=== PATIENT | female | born 1940 | race Caucasian/White ===

== ENCOUNTER → 2024-01-21 10:56 | Outpatient (REF) | payer OTHER, SELFPAY | LOC: RAD 10:56 | PROVIDERS: ATTENDING PHYSICIAN Nurse Practitioner Family | DX: I50.32 Chronic diastolic (congestive) heart failure (principal) | CPT/HCPCS: 71046 ==

== ENCOUNTER 2024-04-27 02:41 | Inpatient (IN) | payer OTHER, SELFPAY ==
[2024-04-26 23:13] VITALS: BP 115/61; BMI 26.4
[2024-04-26 23:14] VITALS: BP 115/61
[2024-04-26 23:41] LABS: % Basophils 0.3 % (0-2); % Eosinophils 0.1 % (0-6); % Immature Granulocytes 0.1 % (0-0.5); % Lymphocytes 5.9 % (20.5-51.1); % Monocytes 10.2 % (1.7-9.3); % Neutrophils 83.4 % (42.2-75.2); Absolute Lymphocytes 0.5 10^3/uL (1.2-3.4); Absolute Monocytes 0.8 10^3/uL (0.1-0.6); Absolute Neutrophils 6.6 10^3/uL (1.4-6.5); Hematocrit 36.2 % (37.0-47.0); Hemoglobin 11.5 g/dL (12.0-16.0); Mean Corp Hgb Conc. 31.8 g/dL (33.0-37.0); Mean Corpuscular Hgb 25.7 pg (27.0-31.0); Mean Platelet Volume 10.1 fL (7.4-10.4); Nucleated Red Blood Cells % 0 %; Platelet Count 120 10^3/uL (130-400); Red Blood Cell Count 4.47 10^6/uL (4.20-5.40); White Blood Cell Count 7.9 10^3/uL (4.8-10.8)
--- NOTE | 2024-04-26 23:52 | ED.GENMED ---
History of Present Illness
General
Chief Complaint: Breathing Problem
Source: patient
Exam Limitations: none
Time Seen by Provider: 04/26/24 23:37
History of Present Illness
History of Present Illness:
This is a 83 year old female that comes in by ambulance with c/o SOB. States that she started with trouble breathing about 6:15pm tonight. States that she felt SOB and dizzy. Family states that she just saw her geophysics scientist this week. Patient use to
take Lasix BID but a few months ago this was decreased to only once daily. Denies any fever, chills, chest pain, abd pain, nausea, vomiting, diarrhea, headache, urinary burning.
Past History
Past History
ED Past Medical History: Cancer (Tonsils and throat), COPD, HTN, Hypercholesterolemia, NIDDM and Other (glaucoma, )
ED Past Surgical History: Other (cataracts)
Social History
Tobacco: Former smoker
Alcohol: None
Personal:
Living: alone
Review of Systems
Review of Systems
All Other Systems: ROS reviewed and negative except as documented in HPI and ROS
Constitutional: Reports no symptoms; Denies fever or chills
EENT: Reports no symptoms
Respiratory: Reports trouble breathing
Cardiac: Denies chest pain
ABD/GI: Reports no symptoms; Denies abdominal pain, nausea, vomiting or diarrhea
: Reports no symptoms; Denies dysuria, frequency or urgency
Musculoskeletal: Reports no symptoms
Skin: Reports no symptoms
Neurological: Reports dizzy; Denies headache
Psychiatric: Reports no symptoms
Phy Exam
General Physical Exam
General Presentation: mild distress
General age: appears stated age
General Skin: warm and dry
General Habitus: elderly
General Mental: alert
General Hydration: dry mucous membranes
ENT Exam
ENT Exam: TM's normal, pharynx normal and neck supple
Eye Exam
Eye Exam: EOMI
Cardiovascular Exam
Cardiovascular Exam: regular rate/rhythm and normal peripheral pulses
Pulmonary Exam
Pulmonary Exam: chest non tender, no rhonchi, no wheezing, no cough and other (Rales at base bilaterally)
Gastrointestinal Exam
Gastrointestinal Exam: normal bowel sounds, non tender, soft, no organomegaly, no pulsatile mass and non distended
Musculoskeletal Exam
Musculoskeletal Exam: full ROM and edema (Right >Left. Ankles and lower legs +1 pitting)
Skin Exam
Skin Exam: normal color, warm/dry and other (Petechia noted on the lower legs)
Psychiatric Exam
Psychiatric Exam: normal mood/affect
Scores
Heart Failure Risk
Heart Failure Risk Score: Yes
History of Stroke or TIA: No
History of intubation for respiratory distress: No
Heart rate on ED arrival >/= 110: No
SaO2 <90% on arrival on room air: No
HR >/=110 during 3min walk test (or too ill to perform test): Yes
ECG has acute ischemic changes: No
Urea >/=12mmol/L (BUN 33.6mg/dL): No
Serum CO2>/=35mmol/L: No
Troponin I or T elevated to NM Level (0.4mg/dL): No
NT-proBNP >/=5,000ng/L (5,000pg/ml): No
HF Risk Score: 2
Admission Status: MEDIUM RISK 9.2% Consider observation or discharge to home with homecare & f/u visit to PCP/Fire Equipment Operator, or SNF for treatment
Course
Orders/Labs/Results
Orders:
Orders
04/26/24 23:35
Complete Blood Count/With Diff Urgent
Comprehensive Metabolic Panel Urgent
04/26/24 23:52
NT-proBNP Urgent
Troponin I Urgent
04/27/24 00:00
CR Chest - 2 Views Urgent
Reason For Exam: SOB
04/27/24 00:05
Electrocardiogram (*1) Urgent
Reason for Study: Shortness of Breath
EKG- Treatment ONCE
04/27/24 00:16
Prothrombin Time Urgent
04/27/24 00:31
Furosemide [Lasix] 40 mg IV NOW STA
04/27/24 00:33
Furosemide [Lasix] 40 mg .ROUTE .STK-MED ONE
Abnormal Lab Results
04/26/24
23:35
Hgb 11.5 L g/dL
(12.0-16.0)
Hct 36.2 L %
(37.0-47.0)
MCH 25.7 L pg
(27.0-31.0)
MCHC 31.8 L g/dL
(33.0-37.0)
RDW 15.0 H %
(11.5-14.5)
Plt Count 120 L 10^3/uL
(130-400)
Absolute Neuts (auto) 6.6 H 10^3/uL
(1.4-6.5)
Absolute Lymphs (auto) 0.5 L 10^3/uL
(1.2-3.4)
Absolute Monos (auto) 0.8 H 10^3/uL
(0.1-0.6)
Neutrophils % 83.4 H %
(42.2-75.2)
Lymphocytes % 5.9 L %
(20.5-51.1)
Monocytes % 10.2 H %
(1.7-9.3)
Chloride 95 L mmol/L
(98-107)
Carbon Dioxide 33 H mmol/L
(22-30)
Creatinine 0.5 L mg/dL
(0.6-1.0)
Glucose 169 H mg/dl
(70-99)
AST 58 H U/L
(14-36)
Alkaline Phosphatase 180 H U/L
(38-126)
04/26/24 23:35
04/26/24 23:35
H/H slightly low. Plt low. Anemia, chloride low, carbon dioxide elevation. Glucose nonfasting. AST elevation. Alk phos elevation. Troponin 0.012, Pro-BNP 874, PT 13.2 with INR 1.02
Vital Signs
Initial and Last Documented VS:
Initial Vital Signs
Temp Pulse Resp BP Pulse Ox
98.1 F 104 18 115/61 97
04/26/24 23:13 04/26/24 23:13 04/26/24 23:13 04/26/24 23:13 04/26/24 23:13
Last Documented Vital Signs
Temp Pulse Resp BP Pulse Ox
98.1 F 78 29 114/50 97
04/26/24 23:13 04/27/24 00:34 04/26/24 23:30 04/27/24 00:34 04/27/24 00:00
MDM/Problems Addressed
Differential Diagnosis Includes:
CHF, COPD exacerbation
MDM/Problems Addressed:
This is a 83 year old female that comes in by ambulance with c/o SOB. states that this started tonight about 6:15pm. States that she felt better after the Duo neb that was given by EMS.
Will check labs, chest x-ray,
back into see patient and family. Explained that her Chest x-ray shows a left pleural effusion with increased vascular congestion. Will give IV Lasix and admit. Hospitalist notified.
Chronic conditions affecting care: COPD
Acute Exacerbation and/or Progression of Chronic Illness: COPD
*Radiology
Radiology exam reviewed: preliminary read by ED provider (Chest- left pleural effusion with increased vascular congestion. )
*Pulse Oximetry
Patient hypoxic: no
*Plush Finisher Interpretation
Rate: tachycardiac
Heart Rate: 106
Rhythm: sinus
*Critical Care Note
Total Time (30-74mins, 75-104mins- exclusive of procedures): Not Applicable
ED Attending Note
-
Portions of this chart may have been created with voice recognition software.� Occasional wrong word or��sound alike� substitutions may have occurred due to the inherent limitations of voice recognition software.
Discharge Plan
Departure
Patient Disposition: Admit
Date of Disposition: 04/27/24
Time of Disposition: 00:38
Admit to: Telemetry
Presentation/result/management discussed w/ accepting MD/DO: Hospitalist
Patient with high blood pressure during this ER visit?: No
Condition: Good
Covid-19: Not Applicable
Discharge Problem:
SOB (shortness of breath), Pleural effusion on left
Prescriptions:
No Action
latanoprost 1 DROP drops
1 drp BOTH EYES HS
ascorbic acid (vitamin C) [Vitamin C] 1,000 MG tablet
1,000 mg PO DAILY
metformin 850 MG tablet
850 mg PO DAILY
cyanocobalamin (vitamin B-12) 1,000 MCG tablet
1,000 mcg PO DAILY
aspirin 81 MG tablet,delayed release (DR/EC)
81 mg PO DAILY
verapamil 120 MG tablet
120 mg PO BID
lorazepam 0.5 MG tablet
0.5 mg PO BIDPRN PRN (Reason: anxiety)
Patient Comments:
02/18/2021: last filled 08/10/20, 30 tabs for 15 days from [facility]
albuterol sulfate 1 PUFF HFA aerosol inhaler
2 puff inhalation R Q4HPRN PRN (Reason: sob)
brimonidine [Alphagan P] 1 DROP drops
1 drp BOTH EYES DAILY
tiotropium bromide [Spiriva with HandiHaler] 18 MCG capsule, w/inhalation device
18 mcg inhalation R DAILY
cholecalciferol (vitamin D3) 2,000 UNITS tablet
2,000 units PO DAILY
guaifenesin [Mucus Relief ER] 600 MG tablet extended release 12hr
1,200 mg PO DAILY
ropinirole 0.25 MG tablet
0.25 mg PO TID Qty: 90 0RF
pantoprazole 40 MG tablet,delayed release (DR/EC)
40 mg PO DAILY Qty: 30 0RF
furosemide [Lasix] 20 MG tablet
20 mg PO DAILY Qty: 30 0RF
Referrals:
Lindy Olivas MD [Family Provider] -
Interventions
Interventions:
*Risk Screen - Suicide Last Done: 04/26/24 23:13
*General Assessment Last Done: 04/26/24 23:13
*Neglect/Abuse Screening Last Done: 04/26/24 23:13
ED- Fall Risk Assessment Last Done: 04/26/24 23:26
*ED COVID-19 Vaccine History Last Done: 04/26/24 23:13
ED- Cardiac Assessment Last Done: 04/26/24 23:26
ED- Pulmonary Assessment Last Done: 04/26/24 23:26
Discharge Date and Time
Print Language: HEBREW
[2024-04-27] VITALS (12 sets, daily range): BP systolic 101–148; BP diastolic 47–85; PULSE 105; O2SAT 95; BMI 25.3
[2024-04-27 00:03] LABS: ALT (SGPT) 32 U/L (0-35); AST (SGOT) 58 U/L (14-36); Albumin 3.8 g/dl (3.5-5.0); Alkaline Phosphatase 180 U/L (38-126); Blood Urea Nitrogen 9 mg/dl (7-17); Calcium 8.8 mg/dl (8.4-10.2); Carbon Dioxide 33 mmol/L (22-30); Chloride 95 mmol/L (98-107); Estimated Creatinine Clearance 74 ml/min; Glucose 169 mg/dl (70-99); Potassium 3.5 mmol/L (3.5-5.1); Sodium 136 mmol/L (135-145); Total Bilirubin 1.1 mg/dl (0.2-1.3); Total Protein 6.7 g/dl (6.3-8.2); eGFR > 60.00
[2024-04-27 00:21] LABS: NT-proBNP 874 pg/ml; Troponin I 0.012 ng/ml
[2024-04-27] MEDS: LASIX 40 MG IV (00:34)
[2024-04-27 00:48] LABS: INR 1.02; PT 13.2 Sec (11.4-14.6)
--- NOTE | 2024-04-27 01:09 | HPS.HSE ---
Family Physician
-
Family Physician: Lindy Olivas
Chief Complaint
-
SoB
History of Present Illness
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
Evaluation of SoB
- presentation is acute on chronic per family
- HX COPD and recently received Home O2 2 L to wear during walking hrs and PRN
- Recently reduced Lasix to once daily in place of BID by PCP due to dehydration
- Denied CP Denied cough with phlegm
- Denied presyncope or syncope
Reviewed serial ECHO
- Noted interval drop in LVEF to 50-55 from 60-65
- Noted Mod with increased gradient to 57/34 mmHg from 43/25 mmHg.
- Relatively similar STEVO 1- 1.2 sq cm
- Stable Mild/mod MS
Medical History
Past Medical History
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
Past Surgical History: Reports None
Social History
Tobacco: Former Smoker
Alcohol: Occasional
Drug: None
Family History
Family History: Not pertinent
Allergies / Home Medications
Allergies reflects when Allergies were last updated in [employer].
Home Medications with original date entered in [employer]
Allergy/Medication List:
Allergies
Allergy/AdvReac Type Severity Reaction Status Date / Time
latex Allergy Unknown Unknown Verified 04/27/24 00:28
lisinopril Allergy Unknown Verified 04/27/24 00:31
simvastatin Allergy Unknown Verified 04/27/24 00:31
codeine AdvReac Mild Pharmacy Verified 04/27/24 00:28
to Review
Home Medications
albuterol sulfate 90 mcg/actuation aerosol inhaler 2 puff inhalation R Q4HPRN PRN sob 02/18/21
brimonidine 0.15 % eye drops (Alphagan P) 1 drp BOTH EYES DAILY Lung/breathing issues 02/18/21
guaifenesin 600 mg tablet, extended release 12 hr (Mucus Relief ER) 1,200 mg PO DAILY cough 02/18/21
latanoprost 0.005 % eye drops 1 drp BOTH EYES HS Eye condition 02/18/21
lorazepam 0.5 mg tablet 0.5 mg PO BIDPRN PRN anxiety 02/18/21
metformin 850 mg tablet 850 mg PO DAILY Diabetes 02/18/21
tiotropium bromide 18 mcg capsule with inhalation device (Spiriva with HandiHaler) 18 mcg inhalation R DAILY Lung/breathing issues 02/18/21
verapamil 120 mg tablet 120 mg PO BID Blood pressure 02/18/21
furosemide 20 mg tablet (Lasix) 20 mg PO DAILY #30 tabs 02/22/21
ropinirole 0.25 mg tablet 0.25 mg PO TID #90 tabs 02/22/21
azelastine 137 mcg (0.1 %) nasal spray 1 spray intranasal BID 04/27/24
ferrous sulfate 27 mg iron tablet 27 mg PO DAILY 04/27/24
vitamins A,C,U-nqde-qecffg 4,296 mcg-226 mg-90 mg capsule (PreserVision AREDS) 1 cap PO BID 04/27/24
Review of Systems
-
Constitutional: Reports No Symptoms
EENT: Reports No Symptoms
Respiratory: Reports Trouble Breathing
Cardiac: Reports See HPI; Denies Chest Pain, Diaphoresis, Palpitations or Syncope
Abdomen/GI: Reports No Symptoms
: Reports No Symptoms
Musculoskeletal: Reports No Symptoms
Skin: Reports No Symptoms
Neurological: Reports No Symptoms
Endocrine: Reports No Symptoms
Hematologic/Lymphatic: Reports No Symptoms
Psych: Reports No Symptoms
Physical Exam
Vital Signs
Vital Signs
Temp Pulse Resp BP Pulse Ox
98.1 F 92 35 126/66 97
04/26/24 23:13 04/27/24 01:00 04/27/24 01:00 04/27/24 01:00 04/27/24 01:00
Physical Exam
General: Respiratory Distress (mild )
HEENT: NormoCephalic, Moist mucous membranes (dry) and Oxygen; No Anicteric
Respiratory: Rales (at bases ); No Wheezes
Cardiac: S1/S2 and Regular Rhythm
Breast: Deferred by me
GI: Soft, Non Tender, Non Distended and Normal Bowel Sounds
Rectal: Deferred by Provider
Genito-urinary: Deferred by me
Musculoskeletal: Other (Right >Left. Ankles and lower legs +1 pitting)
Skin: Warm and Dry
Neuro: AO x 3
Psych: Calm
Laboratory Results
-
04/26/24 23:35
04/26/24 23:35
Laboratory Results
PT 13.2 Sec (11.4-14.6) 04/27/24 00:16
INR 1.02 04/27/24 00:16
Total Bilirubin 1.1 mg/dl (0.2-1.3) 04/26/24 23:35
AST 58 U/L (14-36) H 04/26/24 23:35
ALT 32 U/L (0-35) 04/26/24 23:35
Alkaline Phosphatase 180 U/L (38-126) H 04/26/24 23:35
Troponin I 0.012 ng/ml 04/26/24 23:52
Data Reviewed
-
Medical Tests (Nuc Med, Echo, EKG etc): Report Reviewed by me
Lab Data: Labs Reviewed by me
Old Records: Reviewed
Impression/Plan
-
Reviewed VS: afebrile ST 100 --> 78 BP 115/60 POx 97 on 2 L NC O2
Data
WCC 7.9 Hgb 11.5
Cl 95 CO2 33 Cr 0.5
BG 169
AST 158
ALT 32
AKP 180
NEG TPNI
pro BNP 875
My view on CXR: left pleural mild/moderate effusion with increased vascular congestion.
08/09/23 ECHO
LVEF 50-55
Moderate aortic stenosis. Peak/mean gradients across the aortic valve of 57/34
The aortic valve area is 1.1 sq cm Trace aortic regurgitation.
Mild mitral stenosis with mean gradient across the mitral valve 6 mmHg.
08/28/22 ECHO
LVEF 60-65
Moderate aortic stenosis. Peak/mean gradients across the aortic valve are 43/25 mmHg.
The aortic valve area 1.0cm2.
Mild to moderate mitral stenosis. Mean gradient across the mitral valve is 6 mmHg. Trace mitral regurgitation.
ASSESSMENT & PLAN
Pending Rx reconciliation
Worsening Dyspnea with exertion s/p Lasix 40 x 1 at ER
Small Lt sided pleural effusion
DDX : Worsening symptomatic plus or minus low output HF vs. less likely porimary Pul origin
Reviewed serial ECHO:
- Noted interval drop in LVEF to 50-55 from 60-65
- Noted Mod with increased gradient to 57/34 mmHg from 43/25 mmHg.
- Relatively similar STEVO 1- 1.2 sq cm
- Stable Mild/mod MS
- DCA card consult; await further eval for Diuresis
HX COPD and recently received Home O2 2 L to wear during walking hrs and PRN
No wheeze on my exam
- cont 2 L NC O2
- cont all OP Meds
Stable and improved chronic anemia: asymptomatic
- Observe Hgb
Relative hypotension
Essential hypertension,
- on verapamil add hold parameters for SBP < 115
T2DM
- Held Metformin for now in case cr tend up with IV alsix
- add ISS low
Sjogren's syndrome: Stable
Psoriasis
- recommended OP Rheum FU
Glaucoma:
- Continue Alphagan and Xalatan drops
Hx squamous cell right tonsil, s/p radiation
DVT Px: LMWH
Code: Full
IP TLM
--- NOTE | 2024-04-27 02:45 | PTCARENOTE ---
Pt arrived from ED via stretcher and ambulated w/ rolling walker. Pt is AAOx3, sating 98% on 3L, VSS, w/o complaints of pain. Pt is resting comfortably w/ call carrizales within reach.
[2024-04-27 06:10] LABS: Blood Urea Nitrogen 9 mg/dl (7-17); Carbon Dioxide 36 mmol/L (22-30); Chloride 93 mmol/L (98-107); Estimated Creatinine Clearance 74 ml/min; Glucose 138 mg/dl (70-99); HDL Cholesterol 70 mg/dl; LDL Cholesterol, Calculated 126 mg/dl; Magnesium 1.3 mg/dl (1.6-2.3); Potassium 3.6 mmol/L (3.5-5.1); Sodium 138 mmol/L (135-145); Total Cholesterol 212 mg/dl (50-199); Triglyceride 83 mg/dl (10-149); Very Low Density Lipoprotein 16 mg/dl (0-30); eGFR > 60.00
[2024-04-27] MEDS: MAGNESIUM SULFATE 50 IV (06:35)
[2024-04-27 07:09] LABS: Free T4 0.86 ng/dl (0.78-2.19)
[2024-04-27] MEDS: SPIRIVA RESPIMAT 2.5 MCG 2 PUFF INH (07:21)
[2024-04-27] MEDS: ProAIR HFA INHALER 2 PUFF INH (07:24)
[2024-04-27 07:42] LABS: Glucose - Point of Care 135 mg/dl (70-99)
[2024-04-27] MEDS: LASIX 20 MG PO (08:23)
[2024-04-27] MEDS: CALAN 120 MG PO (08:23)
[2024-04-27] MEDS: MUCINEX 1200 MG PO (08:23)
[2024-04-27] MEDS: ALPHAGAN P 0.15% EYE DROPS 1 DROP BOTH EYES (08:23)
[2024-04-27] MEDS: FEOSOL 325 MG PO (08:23)
[2024-04-27] MEDS: REQUIP 0.25 MG PO ×3 (08:24→21:00)
--- NOTE | 2024-04-27 09:57 | CON.CAR ---
Consultation
Consultation Request
Date/Time Consultation Requested: 04/27/24
Date/Time Consultation Performed: 04/27/24
Requesting Provider: Dr. Gross
Performing Provider: Dr. Rico
Reason for Consultation: Worsening dyspnea on exertion
Medical History
-
Chief Complaint: Worsening shortness of breath
History of Present Illness:
Zoya is a pleasant 83-year-old female who follows routinely with my colleague Dr. Graham recently seen April 22. She has a past medical history of COPD, hypertension, diabetes, sjogrens syndrome, psoriasis, history of squamous cell right tonsil
cancer status post radiation with mild mitral stenosis with a mean transit mitral gradient of 6 mmHg and moderate aortic stenosis with peak/mean transaortic gradients 57/34 mmHg with low normal LV ejection fraction estimated 50-55% based on
echocardiogram in August 2023. She has had progressive shortness of breath which has required increased doses of Lasix. She is also recently been seen by pulmonary and was recently put on home O2 within the last week. When last seen she was
taking Lasix 20 mg once daily and her weight was 177 pounds. At the time of her office visit no change was made to her Lasix but she was requested to have a repeat echocardiogram to reassess aortic valve disease. She presents to [facility] with acute worsening of shortness of breath of the last several days. She denies URI signs or symptoms or fevers. She denies cough.
PMH:
- COPD
- Hypertension
-Mild mitral stenosis, moderate aortic stenosis based on echocardiogram August 2023
- Type 2 diabetes
- Psoriasis
- Sjogrens syndrome
- Glaucoma
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
-COPD with hypoxia requiring 2 L home O2 followed by Dr. Metz
- Prior tobacco use, quit greater than 20 years ago
Past Medical History
Past Medical History: Other (See HPI)
Past Surgical History: Other (See HPI)
Social History
Tobacco: Former Smoker
Alcohol: None
Drug: None
Personal: Single
Living: Alone
Employment: Retired
Family History
Family History: Reviewed & Not Pertinent
Allergies / Home Medications
Allergy/AdvReac Type Severity Reaction Status Date / Time
latex Allergy Unknown Unknown Verified 04/27/24 00:28
lisinopril Allergy Unknown Verified 04/27/24 00:31
simvastatin Allergy Unknown Verified 04/27/24 00:31
codeine AdvReac Mild Pharmacy Verified 04/27/24 00:28
to Review
�Medication �Instructions �Recorded �Confirmed �Type
albuterol sulfate 90 mcg/actuation 2 puff inhalation R Q4HPRN PRN sob 02/18/21 04/27/24 History
aerosol inhaler
brimonidine 0.15 % eye drops 1 drp BOTH EYES DAILY 02/18/21 04/27/24 History
(Alphagan P) Lung/breathing issues
guaifenesin 600 mg tablet, 1,200 mg PO DAILY cough 02/18/21 04/27/24 History
extended release 12 hr (Mucus
Relief ER)
latanoprost 0.005 % eye drops 1 drp BOTH EYES HS Eye condition 02/18/21 04/27/24 History
lorazepam 0.5 mg tablet 0.5 mg PO BIDPRN PRN anxiety 02/18/21 04/27/24 History
metformin 850 mg tablet 850 mg PO DAILY Diabetes 02/18/21 04/27/24 History
tiotropium bromide 18 mcg capsule 18 mcg inhalation R DAILY 02/18/21 04/27/24 History
with inhalation device (Spiriva Lung/breathing issues
with HandiHaler)
verapamil 120 mg tablet 120 mg PO BID Blood pressure 02/18/21 04/27/24 History
furosemide 20 mg tablet (Lasix) 20 mg PO DAILY #30 tabs 02/22/21 04/27/24 Rx
ropinirole 0.25 mg tablet 0.25 mg PO TID #90 tabs 02/22/21 04/27/24 Rx
azelastine 137 mcg (0.1 %) nasal 1 spray intranasal BID 04/27/24 04/27/24 History
spray
ferrous sulfate 27 mg iron tablet 27 mg PO DAILY 04/27/24 04/27/24 History
vitamins A,C,H-bznn-zhluud 4,296 1 cap PO BID 04/27/24 04/27/24 History
mcg-226 mg-90 mg capsule
(PreserVision AREDS)
Review of Systems
-
History Source: Patient
All other systems: Negative unless noted
Constitutional: Weight Gain and Fatigue
EENT: No Symptoms
Respiratory: Cough and Trouble Breathing
Cardiac: No Symptoms
Abdomen/GI: No Symptoms
: No Symptoms
Musculoskeletal: Joint Pain and Muscle Pain
Neurological: Weakness
Endocrine: No Symptoms
Hematologic/Lymphatic: No Symptoms
Physical Exam
Vital Signs
Temp Pulse Resp BP Pulse Ox
98.3 F 94 24 130/52 93
04/27/24 07:20 04/27/24 07:20 04/27/24 07:20 04/27/24 07:20 04/27/24 07:20
Lab Results
04/26/24 23:35
04/27/24 05:30
Troponin I 0.012 ng/ml 04/26/24 23:52
Mto-R-Ncchsfwvsme Pept 874 pg/ml 04/26/24 23:52
Physical Exam
General: Well Developed, Well Nourished, No Apparent Distress, Comfortable and Other (2 L nasal cannula)
HEENT: Normocephalic, Anicteric and Moist Mucous Membranes
Respiratory: Other (Bronchovesicular breath sounds with coarse rhonchi. No wheezes. Fine crackles at the base)
Cardiac: S1/S2, Regular Rhythm and Murmur (2/6 SM)
GI: Soft, Non Tender, Non Distended and Normal Bowel Sounds
Musculoskeletal: Edema
Skin: Negative Rash
Neuro: AO x 3 and Nonfocal/Grossly Intact
Psych: Calm
Impression / Plan
-
[employer] Rolls: Dr. Graham
Impression:
Acute worsening of chronic shortness of breath, COPD exacerbation with mild heart failure with preserved ejection fraction decompensation
COPD with chronic hypoxia recently placed on 2 L nasal cannula home O2
Mild mitral stenosis with moderate aortic stenosis from echocardiogram in August 2023 with plans for repeat 2D echocardiogram as an outpatient
Hypertension
Dyslipidemia
Type 2 diabetes mellitus
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
Microcytic anemia
History of Sjogren's
Plan:
Chronic heart failure with preserved ejection fraction
-proBNP 874 and weights stable when compared to recent outpatient cardiac visits
-Chest x-ray with small left pleural effusion and mild pulmonary vascular congestion
-Twelve-lead EKG sinus rhythm with PVCs/PACs and nonspecific ST-T wave abnormality
-Received Lasix 40 mg IV in the ED yesterday
-I think it is reasonable to do trial of gentle IV diuresis.
-Replete magnesium, 1.3 today
-Lower extremity Doppler negative for DVT
-History of VLADIMIR inhibitor cough
-Repeat 2D echocardiogram on Sunday
COPD with chronic hypoxia only put on home O2
-Pulmonary consulted
Valvular heart disease�repeat echocardiogram on Sunday to reassess aortic and mitral stenosis
Microcytic anemia with hemoglobin and MCV improved, currently 11.5
Sjogren's syndrome and psoriasis�noted
Will follow with you
Data Reviewed
-
EKG: Report Reviewed by me
Radiology: Report Reviewed by me
Labs: Labs Reviewed by me
Old Records: Reviewed
[2024-04-27 11:27] LABS: Glucose - Point of Care 194 mg/dl (70-99)
--- NOTE | 2024-04-27 11:47 | CM ---
CM following re: d/c planning.
CM met with pt at bedside to complete IA.
Pt reports she resides in an in law suite attached to her son's and DIL's home.
She states she is independent with mobility and ADLs.
Pt is on o2, states she is on home o2 as of Sunday.
She reports she is on 2 L, at night and PRN during the day.
Pt states she drives, at times, but family take her to appts.
She does not have VN currently, but states she did PT recently.
Per therapy, recs for VN vs no needs. CM discussed this with pt.
She declines.
C/s acknowledged for AD.
CM brought pt AD/POA paperwork. She verbalized appreciation.
PCP is Dr. Olivas and pharmacy [facility] in [place].
CM will continue to follow.
Goal: home, no needs.
--- NOTE | 2024-04-27 13:34 | W.PN.HOSP.TC ---
Today's Communication/Plan
-
SOB suspected contributed by aortic stenosis together in the setting of COPD
Appreciate cardiology guidance on further Lasix
Appreciate pulmonary given patient's ESQUIVEL in setting of COPD
Assessment / Plan
Assessment / Plan
Physical Exam
General: Respiratory Distress (mild )
HEENT: Normocephalic
Respiratory: Rales (at bases)
Cardiac: S1/S2 and Regular Rhythm
GI: Soft, Non Tender, Non Distended and Normal Bowel Sounds
Musculoskeletal: Other (Right >Left. Ankles and lower legs +1 pitting)
Skin: Warm and Dry
Neuro: AO x 3
Psych: Calm

Worsening Dyspnea with exertion s/p Lasix 40 x 1 at ER
Chronic HFpEF?
History of Interstitial Lung Disease?
Small Lt sided pleural effusion
Moderate Aortic Stenosis
- Patient received Lasix in the ER without much improvement in symptoms
- repeat ECHO ordered
- Daily weights, I's and O's
- DCA card consulted, recommendations appreciated, appreciate guidance on further Lasix given patient's aortic stenosis
COPD, recently started on 2 L home oxygen
No wheeze on my exam
- Consulted pulmonary given patient's worsening SOB (patient sees Dr. Metz outpatient)
Normocytic Anemia
- Monitor CBC
Relative hypotension
Essential hypertension
- Continue Verapamil with hold parameters for SBP < 115
T2DM
- Held Metformin for now in case Cr tend up with any IV alsix
- Continue ISS low and accuchecks
Sjogren's syndrome: Stable
Psoriasis
- recommended OP Rheum FU
Glaucoma:
- Continue Alphagan and Xalatan drops
Hx squamous cell right tonsil, s/p radiation
Hyperlipidemia
Major Depressive Disorder
History of Pulmonary Hypertension
History of CKD Stage 2
Restless Leg Syndrome?
DVT PPx: LMWH
Code: Full
Anticipated Discharge: > 48 hours
Subjective/Interval History
-
Date of Service: April 27, 2024
Patient was seen and examined. She reported still feeling short of breath, denied any chest pain.
Objective Data
-
Labs:
Laboratory Results
04/27/24
05:30
Sodium 138
Potassium 3.6
Chloride 93 L
Carbon Dioxide 36 H
BUN 9
Creatinine 0.5 L
Glucose 138 H
Calcium 9.0
Vital Signs:
Vital Signs
Temp Pulse Resp BP Pulse Ox
98.3 F 75 24 118/47 93
04/27/24 11:00 04/27/24 11:00 04/27/24 11:00 04/27/24 11:00 04/27/24 11:00
I&O
04/26/24 04/27/24 04/28/24
06:59 06:59 06:59
Output Total 325 / 325
Balance -325 / -325
--- NOTE | 2024-04-27 13:50 | CON.PUL ---
Consultation
Consultation Request
Date/Time Consultation Requested: 04-27-24
Date/Time Consultation Performed: 04-27-24
Requesting Provider: Hospitalist Tom
Performing Provider: Dr Del Cid
Reason for Consultation: dyspnea
Medical History
-
Chief Complaint: dyspnea
History of Present Illness:
Mrs Zoya Moise is an 83/W adm late 04-26 with acute on chronic mild ESQUIVEL.
Brought by EMS, reported acute dyspnea and dizziness at home.
On new onset O2 at 2L since last few d, remote h/o smoking, COPD on BDs (not on chronic CSs). Denies fever, chills, NS, CP, abd pain/n/v/d.
Pulm consulted for L pleural effusion and dyspnea
In no resp distress at time of visit. Remote h/o smoking, quit 30 y ago
Past Medical History
Past Medical History: Other (see A&P for PMH/PSH)
Social History
Tobacco: Former Smoker
Alcohol: Occasional
Drug: None
Personal:
Living: With Family (lives in first floor of house alone (son and DIL live upstairs))
Employment: Retired
Family History
Family History: Reviewed & Not Pertinent
Allergies / Home Medications
Allergies
Allergy/AdvReac Type Severity Reaction Status Date / Time
latex Allergy Unknown Unknown Verified 04/27/24 00:28
lisinopril Allergy Unknown Verified 04/27/24 00:31
simvastatin Allergy Unknown Verified 04/27/24 00:31
codeine AdvReac Mild Pharmacy Verified 04/27/24 00:28
to Review
Home Medications
�Medication �Instructions �Recorded �Confirmed �Last Taken �Type
albuterol sulfate 90 mcg/actuation 2 puff inhalation R Q4HPRN PRN sob 02/18/21 04/27/24 02/18/21 History
aerosol inhaler
brimonidine 0.15 % eye drops 1 drp BOTH EYES DAILY 02/18/21 04/27/24 02/17/21 08:00 History
(Alphagan P) Lung/breathing issues
guaifenesin 600 mg tablet, 1,200 mg PO DAILY cough 02/18/21 04/27/24 02/17/21 18:00 History
extended release 12 hr (Mucus
Relief ER)
latanoprost 0.005 % eye drops 1 drp BOTH EYES HS Eye condition 02/18/21 04/27/24 02/17/21 18:00 History
lorazepam 0.5 mg tablet 0.5 mg PO BIDPRN PRN anxiety 02/18/21 04/27/24 Unknown History
metformin 850 mg tablet 850 mg PO DAILY Diabetes 02/18/21 04/27/24 02/18/21 08:00 History
tiotropium bromide 18 mcg capsule 18 mcg inhalation R DAILY 02/18/21 04/27/24 02/18/21 07:00 History
with inhalation device (Spiriva Lung/breathing issues
with HandiHaler)
verapamil 120 mg tablet 120 mg PO BID Blood pressure 02/18/21 04/27/24 02/17/21 18:00 History
furosemide 20 mg tablet (Lasix) 20 mg PO DAILY #30 tabs 02/22/21 04/27/24 Unknown Rx
ropinirole 0.25 mg tablet 0.25 mg PO TID #90 tabs 02/22/21 04/27/24 Unknown Rx
azelastine 137 mcg (0.1 %) nasal 1 spray intranasal BID 04/27/24 04/27/24 Unknown History
spray
ferrous sulfate 27 mg iron tablet 27 mg PO DAILY 04/27/24 04/27/24 Unknown History
vitamins A,C,S-jqol-npqydw 4,296 1 cap PO BID 04/27/24 04/27/24 Unknown History
mcg-226 mg-90 mg capsule
(PreserVision AREDS)
Review of Systems
-
History Source: Patient
All other systems: Negative unless noted
Constitutional: Fatigue
Respiratory: Trouble Breathing
Neuro: Weakness
Vitals / Labs / Diagnostic Testing
Vital Signs
Temp Pulse Resp BP Pulse Ox
98.3 F 75 24 118/47 93
04/27/24 11:00 04/27/24 11:00 04/27/24 11:00 04/27/24 11:00 04/27/24 11:00
Lab Data
04/26/24 23:35
04/27/24 05:30
Laboratory Results
04/27/24
00:16
PT 13.2
INR 1.02
Diagnostic Testing:
Physical Exam
-
HEENT: Normocephalic, Moist Mucous Membranes and Thrush (n)
Cardiovascular: Regular Rhythm, Murmur (ESM at AV) and Peripheral Edema (mild R pedal and leg edema)
Respiratory: Wheeze (n), Rhonchi and Accessory Resp Muscle Use (n)
GI: Soft, Non Distended and Non Tender
Neurology: Awake, AO x 3 and No Motor Deficits
Skin: Warm
General: Respiratory Distress (n)
Assessment
-
Assessment:
Mrs Zoya Moise is an 83/W adm late 04-26 with acute on chronic mild ESQUIVEL. Brought by EMS, reported acute dyspnea and dizziness at home. On new onset O2 at 2L since last few d, remote h/o smoking, COPD on BDs (not on chronic CSs). Denies fever,
chills, NS, CP, abd pain/n/v/d. Pulm consulted for L pleural effusion and dyspnea
Impression:
Acute on mild chronic ESQUIVEL:
Multifactorial COPD (very mild exacerbation at most), small L PF, mild MS, moderate , deconditioning
Small L pleural effusion
Acute on chronic elevation of total serum CO2
Troponin normal
BNP normal for age
Normal fT4
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
H/N cancer
COPD, on albuterol, tiotropium. On new onset O2 since 04-23-23 at 2L
Mild MS, moderate with STEVO 1.1 cm2, normal RV size/fx on TTE Aug 2023
HTN
HLD
T2DM
Glaucoma
Cataracts
Sjogren syndrome
Psoriasis
Sq cell ca R tonsil, s/p XRT 2019
RLS
Remote h/o smoking, quit 30 y ago
Plan:
Continue O2 protocol
Currently at baseline O2 at 2L, POx 93% at rest
On new onset O2 since 04-23
Asp precs
Acapella
CXR 04-27: chronic unchanged small L PF, no changed since January 2024 (not reported on TTE Aug 2023)
Small chronic L PF, could be secondary to rare side effect of ropinirole, compounded by MS/
No clinical indication for thoracentesis at this juncture
Continue guaifenesin
Continue tiotropium
Continue alb HFA prn
Observe off systemic CSs for now
Mild R pedal edema
MARGUERITE doppler negative 04-27
Continue outpatient furosemide
No clinical evidence of CHF
DVT prophylaxis: enoxaparin
Follow [facility] upon d/c
D/w Mrs Moise, all questions answered to satisfaction
[2024-04-27] MEDS: LOVENOX 40 MG SC (17:10)
[2024-04-27] MEDS: OCUVITE SOFTGEL 1 CAP PO (20:57)
[2024-04-27] MEDS: XALATAN OPHTHALMIC SOLUTION 1 DROP BOTH EYES (21:00)
[2024-04-27] MEDS: CARDIZEM 5 MG IV (21:43)
--- NOTE | 2024-04-27 21:45 | PTCARENOTE ---
Pt @21:30 went into new rapid afib, heart rate sustaining 130-150's. Pt stated she felt dizzy but denies worsening SOB or palpations. RN obtained EKG- Atrial fibrillation with rapid ventricular response with premature ventricular. Pt bp 133/85, resp
22, sating 95% on room air. RN notified CHROME CLEANER- ordered Cardizem 5mg IV. Pt @22:00 hr still sustaining 130's, RN notified CHROME CLEANER- ordered Cardizem gtt and Heparin gtt. Pt @23:00 hr 90-120's. Pt is resting comfortably w/ call carrizales within reach.
[2024-04-27] MEDS: CARDIZEM 125 IV (22:21)
[2024-04-27 22:50] LABS: Hematocrit 34.1 % (37.0-47.0); Hemoglobin 10.8 g/dL (12.0-16.0); Mean Corp Hgb Conc. 31.7 g/dL (33.0-37.0); Mean Corpuscular Hgb 25.9 pg (27.0-31.0); Mean Corpuscular Volume 81.8 fL (81.0-99.0); Mean Platelet Volume 10.4 fL (7.4-10.4); Platelet Count 114 10^3/uL (130-400); Red Blood Cell Count 4.17 10^6/uL (4.20-5.40); Red Cell Dist. Width 15.3 % (11.5-14.5); White Blood Cell Count 4.3 10^3/uL (4.8-10.8)
[2024-04-27 23:01] LABS: APTT 44.4 Sec (23.4-35.0)
[2024-04-27 23:07] LABS: Blood Urea Nitrogen 10 mg/dl (7-17); Calcium 8.6 mg/dl (8.4-10.2); Carbon Dioxide 39 mmol/L (22-30); Chloride 95 mmol/L (98-107); Estimated Creatinine Clearance 74 ml/min; Glucose 140 mg/dl (70-99); Magnesium 1.7 mg/dl (1.6-2.3); Potassium 3.6 mmol/L (3.5-5.1); Sodium 136 mmol/L (135-145); eGFR > 60.00
--- NOTE | 2024-04-27 23:29 | W.PN.UPDATE ---
Update Note
Progress Note Update
2129 RN reports new rapid afib with HR 120s-140s sustaining. No hx of afib previously. On verapamil po for HTN
Discussed with Dr Rico- start heparin gtt no bolus, cardizem gtt and dc verapamil. Pt will be getting echo in am .
[2024-04-27] MEDS: HEPARIN 25000 UNITS/250 ML IV (23:37)
[2024-04-28] VITALS (7 sets, daily range): BP systolic 102–130; BP diastolic 52–66; BMI 25.0
[2024-04-28 08:16] LABS: APTT 105.8 Sec (23.4-35.0)
[2024-04-28] MEDS: SPIRIVA RESPIMAT 2.5 MCG 2 PUFF INH (08:23)
[2024-04-28 08:27] LABS: ALT (SGPT) 31 U/L (0-35); AST (SGOT) 54 U/L (14-36); Albumin 3.8 g/dl (3.5-5.0); Alkaline Phosphatase 159 U/L (38-126); Blood Urea Nitrogen 10 mg/dl (7-17); Calcium 9.3 mg/dl (8.4-10.2); Carbon Dioxide 38 mmol/L (22-30); Chloride 94 mmol/L (98-107); Estimated Creatinine Clearance 74 ml/min; Glucose 145 mg/dl (70-99); Magnesium 1.8 mg/dl (1.6-2.3); Potassium 3.9 mmol/L (3.5-5.1); Sodium 137 mmol/L (135-145); Total Bilirubin 0.9 mg/dl (0.2-1.3); Total Protein 6.6 g/dl (6.3-8.2); eGFR > 60.00
--- NOTE | 2024-04-28 08:52 | W.PN.CARDCBS ---
Addendum entered and electronically signed by Bear Graham DO 04/28/24 14:14:
I saw and examined the patient.
The Machine Lacer's note was reviewed and I agree with the note.
Comment:
Plan:
Cont IV lasix diuresis and possible transition to oral lasix next 24 hrs.
Echo pending
Transition to Eliquis tonight from IV Heparin
Transition to oral Cardizem for rate control and stop IV cardizem.
Likely rate control strategy for now with outpt follow up
Pulm eval and work up ongoing. Pt is recently new to O2.
Discussed with daughter at bedside.
Original Note:
Today's Communication / Plan
-
Continue IV lasix
Start PO Cardizem CD 120mg daily for rate control
Transition to Eliquis for AC tonight.
Echo pending
Impression / Plan
-
Stripper And Printer: Dr. Graham
Impression:
Acute worsening of chronic shortness of breath
Mild acute HFpEF
COPD exacerbation
Rapid Afib w/ RVR - Newly diagnosed this admission
Chronic hypoxia recently placed on 2L home O2
Mild mitral stenosis with moderate aortic stenosis from echo 08/2023
Hypertension
Dyslipidemia
Type 2 diabetes mellitus
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
Microcytic anemia
History of Sjogren's
Echo 08/09/2023: EF 50-55%, mild MR, mild MS, mod with peak/mean gradients 57/34 mmHg, trace AI
Echo 04/28/2024: Study pending
Plan:
-Presented with worsening SOB and found to have acute heart failure. Diuresing with IV lasix 20mg daily.
-Weight down 2lbs overnight to 174 lbs. Creat stable at 0.5. Continue to follow daily weights, I&Os. Breathing feels much better today per patient.
-K and mag overall stable.
-Echo pending 04/28. Await results. Prior echo 08/2023 with preserved EF.
-Went into rapid atrial fibrillation overnight 04/27 which is a new diagnosis. HR initially in 120s to 140s and started on cardizem gtt and heparin.
-HRs this AM are improved, now in the 70s to 90s. Cardizem gtt running @10. Will start Cardizem CD 120mg daily for rate control and attempt to wean cardizem gtt. Verapamil stopped.
-Will transition to Eliquis 5mg BID for anticoagulation. CM assessing cost.
-Also being treated for COPD exacerbation. Pulmonology following.
-On 2L NC which is chronic.
HPI: Zoya is a pleasant 83-year-old female who follows routinely with my colleague Dr. Graham recently seen April 22. She has a past medical history of COPD, hypertension, diabetes, sjogrens syndrome, psoriasis, history of squamous cell right
tonsil cancer status post radiation with mild mitral stenosis with a mean transit mitral gradient of 6 mmHg and moderate aortic stenosis with peak/mean transaortic gradients 57/34 mmHg with low normal LV ejection fraction estimated 50-55% based on
echocardiogram in August 2023. She has had progressive shortness of breath which has required increased doses of Lasix. She is also recently been seen by pulmonary and was recently put on home O2 within the last week. When last seen she was
taking Lasix 20 mg once daily and her weight was 177 pounds. At the time of her office visit no change was made to her Lasix but she was requested to have a repeat echocardiogram to reassess aortic valve disease. She presents to [facility] with acute worsening of shortness of breath of the last several days. She denies URI signs or symptoms or fevers. She denies cough.
Progress Note - Stripper And Printer
Subjective
Date of Service: April 28, 2024
Breathing feels much improved today. Asymptomatic w/ Afib.
Objective
Labs:
04/27/24 22:37
04/28/24 07:28
Labs
Hgb 10.8 g/dL (12.0-16.0) L 04/27/24 22:37
Hct 34.1 % (37.0-47.0) L 04/27/24 22:37
Plt Count 114 10^3/uL (130-400) L 04/27/24 22:37
PT 13.2 Sec (11.4-14.6) 04/27/24 00:16
INR 1.02 04/27/24 00:16
APTT 105.8 Sec (23.4-35.0) H 04/28/24 07:28
Sodium 137 mmol/L (135-145) 04/28/24 07:28
Potassium 3.9 mmol/L (3.5-5.1) 04/28/24 07:28
BUN 10 mg/dl (7-17) 04/28/24 07:28
Creatinine 0.5 mg/dL (0.6-1.0) L 04/28/24 07:28
Glucose 145 mg/dl (70-99) H 04/28/24 07:28
Troponins
04/26/24
23:52
Troponin I 0.012
Vital Signs and I&O:
Vital Signs
Temp Pulse Resp BP Pulse Ox
98.7 F 101 18 120/52 97
04/28/24 07:38 04/28/24 08:30 04/28/24 08:30 04/28/24 07:38 04/28/24 08:30
Vital Signs
Temp Pulse Resp BP Pulse Ox
98.7 F 101 18 120/52 97
04/28/24 07:38 04/28/24 08:30 04/28/24 08:30 04/28/24 07:38 04/28/24 08:30
Intake & Output
04/26/24 04/27/24 04/28/24 04/29/24
06:59 06:59 06:59 06:59
Intake Total 1020 / 1020
Output Total 325 / 325 625 / 625
Balance -325 / -325 395 / 395
Physical Exam
Physical Exam
GEN: No distress, awake, alert, oriented x3
HEENT: supple, anicteric, mmm
LUNGS: Few crackles at b/l bases
CV: Irregularly irregular, S1/S2, 2/6 syst murmur
EXT: No clubbing or cyanosis, +1 edema
NEURO: Gross non-focal
SKIN: Warm, dry, no rash
[2024-04-28] MEDS: ALPHAGAN P 0.15% EYE DROPS 1 DROP BOTH EYES (09:41)
[2024-04-28] MEDS: REQUIP 0.25 MG PO ×3 (09:41→21:09)
[2024-04-28] MEDS: OCUVITE SOFTGEL 1 CAP PO ×2 (09:41→20:37)
[2024-04-28] MEDS: MUCINEX 1200 MG PO (09:41)
[2024-04-28] MEDS: FEOSOL 325 MG PO (09:41)
[2024-04-28] MEDS: LASIX 20 MG IV (09:41)
[2024-04-28] MEDS: CARDIZEM 125 IV ×2 (10:21→20:37)
--- NOTE | 2024-04-28 11:15 | PTCARENOTE ---
Tele alarmed very briefly for HR 39 once at this time and since then HR has been 70-90's. Pt asymptomatic. caro Rodriguez made aware who reviewed telemetry and asked that cardizem gtt be continued at current rate of 10mL/hr. Strip placed in
chart.
--- NOTE | 2024-04-28 11:49 | W.PN.HOSP.TC ---
Today's Communication/Plan
-
Continue rate control
Continue Lasix
Low resistance insulin scale
Hemoglobin A1c
Assessment / Plan
Assessment / Plan
Gen-AAOx3, NAD
HEENT-NC, AT, anicteric, clear oral mm
Neck-supple
CV-reg, no M, +S1/S2
Lungs-clear B/L
Abd-soft, NT, ND
Ext-no edema
Musculoskeletal-no cyanosis, clubbing
Skin-warm and dry
Neuro-grossly non-focal
Psych-calm, cooperative
New atrial fibrillation -with RVR. Continue heparin IV, Cardizem drip. Cardiology consulted. TSH 11.5, free T4 normal. Recommend outpatient follow-up with PCP. Hold off on starting levothyroxine in light of atrial fibrillation. Verapamil on
hold.
Acute heart failure with preserved EF exacerbation -improving on IV Lasix. Appreciate cardiology input. Weight coming down, 79 kg today.
Daughter states she was on twice daily Lasix a few months ago but dose was reduced due to dryness in her throat.
Acute COPD exacerbation -mild exacerbation. Appreciate pulmonary input. No wheezing on exam, hold off on systemic steroids. Recently started on home oxygen at 2 L continuously.
Normocytic Anemia
- Monitor CBC
Essential hypertension -stable.
DM2 with hyperglycemia -check hemoglobin A1c. Metformin currently on hold. Glucose 145 this morning. Had low resistance corrective scale.
Sjogren's syndrome: Stable
Psoriasis
- recommended OP Rheum FU
Glaucoma:
- Continue Alphagan and Xalatan drops
Hx squamous cell right tonsil, s/p radiation
Hyperlipidemia
Major Depressive Disorder
History of Pulmonary Hypertension
History of CKD Stage 2
Restless Leg Syndrome?
Full code
Anticipated Discharge: 24 - 48 hours
Subjective/Interval History
-
Date of Service: April 28, 2024
Patient seen and examined. Feeling better, shortness of breath improving. No complaints. Daughter at the bedside.
Objective Data
-
Labs:
Laboratory Results
04/28/24 04/28/24
07:28 13:30
APTT 105.8 H Pending
Sodium 137
Potassium 3.9
Chloride 94 L
Carbon Dioxide 38 H
BUN 10
Creatinine 0.5 L
Glucose 145 H
Calcium 9.3
Total Bilirubin 0.9
AST 54 H
ALT 31
Alkaline Phosphatase 159 H
Vital Signs:
Vital Signs
Temp Pulse Resp BP Pulse Ox
98.2 F 52 18 128/85 98
04/28/24 11:46 04/28/24 11:46 04/28/24 11:46 04/28/24 11:46 04/28/24 11:46
I&O
04/27/24 04/28/24 04/29/24
06:59 06:59 06:59
Intake Total 1020 / 1020
Output Total 325 / 325 625 / 625
Balance -325 / -325 395 / 395
Review of Systems
-
History Source: Patient
All other systems: Reviewed and negative
[2024-04-28] MEDS: CARDIZEM CD 120 MG PO (13:59)
[2024-04-28 14:15] LABS: APTT 128.1 Sec (23.4-35.0)
--- NOTE | 2024-04-28 15:18 | W.PN.PUL3 ---
Today's Communication / Plan
-
Continue inhalers
Continue ox supplementation
Oral diuretics
Rate control
Anticoagulation
No indication for systemic corticosteroids
No additional recommendation from the pulmonary perspective.
I will sign off.
Outpatient pulmonary follow-up with Dr. Metz.
Assessment
-
Assessment:
Mrs Zoya Moise is an 83/W adm late 04-26 with acute on chronic mild ESQUIVEL. Brought by EMS, reported acute dyspnea and dizziness at home. On new onset O2 at 2L since last few d, remote h/o smoking, COPD on BDs (not on chronic CSs). Denies fever,
chills, NS, CP, abd pain/n/v/d. Pulm consulted for L pleural effusion and dyspnea
Impression:
Acute on mild chronic ESQUIVEL:
Multifactorial COPD (very mild exacerbation at most), small L PF, mild MS, moderate , deconditioning
Mild acute heart failure with restrictive ejection fraction/rapid atrial fibrillation with rapid ventricular response-new this admission.
Small L pleural effusion
Acute on chronic elevation of total serum CO2
Troponin normal
BNP normal for age
Normal fT4
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
H/N cancer
COPD, on albuterol, tiotropium. On new onset O2 since 04-23-23 at 2L
Follow[address] with Dr. Metz, last seen on 03/2024 -
Mild MS, moderate with STEVO 1.1 cm2, normal RV size/fx on TTE Aug 2023
HTN
HLD
T2DM
Glaucoma
Cataracts
Sjogren syndrome
Psoriasis
Sq cell ca R tonsil, s/p XRT 2019
RLS
Remote h/o smoking, quit 30 y ago
Plan:
Continue oxygen supplementation-she was placed on oxygen first on 03/2024 during pulmonary visit office.
[facility] records reviewed.
Maintain pulse ox above 90%.
Incentive spirometry encouraged.
CXR 04-27: chronic unchanged small L PF, no changed since January 2024 (not reported on TTE Aug 2023)
Small chronic L PF, could be secondary to rare side effect of ropinirole, compounded by MS/.
No clinical indication for thoracentesis at this juncture.
Reviewed outpatient records from Dr. Metz she was offered further evaluation with a CAT scan. She did not want aggressive interventions.
This left lung abnormality can be followed in the outpatient setting.
Continue current management: Appears to be at baseline from the pulmonary perspective. It is noted on outpatient office records that patient has some crackles in both bases. Suspected postinflammatory scarring.
Continue tiotropium
Continue alb HFA prn
No indication for systemic corticosteroids.
Mild R pedal edema
MARGUERITE doppler negative 04-27
Suspect new onset rapid atrial fibrillation contributing to symptoms.
Anticoagulation
Rate control
PO diuretics.
Cardiology correspondence reviewed.
DVT prophylaxis: enoxaparin
Appears baseline from a COPD perspective. No additional recommendations.
Sign off
Follow [facility] upon d/c - Dr. Metz.
Subjective Data
-
Date of Service:
Date of Service: April 28, 2024
Objective Data
Data Reviewed
Vital Signs / I&O / Oxygen:
Vital Signs
Temp Pulse Resp BP Pulse Ox
98.2 F 87 24 105/57 97
04/28/24 11:55 04/28/24 13:59 04/28/24 11:55 04/28/24 13:59 04/28/24 11:55
Intake and Output
04/27/24 04/28/24 04/29/24
06:59 06:59 06:59
Intake Total 1020 / 1020
Output Total 325 / 325 625 / 625
Balance -325 / -325 395 / 395
SaO2 97
Nasal Cannula flow liters per 2
minute
Physical Exam
General: Respiratory Distress (n) and Comfortable
HEENT: Normocephalic
Cardiovascular: Irregular Rhythm
Respiratory: Wheeze (n) and Crackles (Bases)
GI: Soft and Non Distended
Neurology: Awake and Alert
Labs/Micro/Reports
Lab Data
04/27/24 22:37
04/28/24 07:28
Laboratory Results
04/27/24 04/28/24 04/28/24
22:37 07:28 13:57
APTT 44.4 H 105.8 H 128.1 H
--- NOTE | 2024-04-28 15:31 | CM ---
Patient seen bedside with daughter, discussed cost of Eliquis per patients insurance $47 month (Eliquis 5 mg BID). Patient reports she is on a fixed income. CM provided Eliquis coupon and information regarding assistance program. CM will continue to
follow for all discharge planning needs.
Plan; home no needs, patient declining VN.
[2024-04-28 17:09] LABS: Glucose - Point of Care 117 mg/dl (70-99)
[2024-04-28] MEDS: ELIQUIS 5 MG PO (20:37)
[2024-04-28] MEDS: XALATAN OPHTHALMIC SOLUTION 1 DROP BOTH EYES (20:38)
[2024-04-28 21:04] LABS: Glucose - Point of Care 160 mg/dl (70-99)
[2024-04-28 21:24] LABS: APTT 55.4 Sec (23.4-35.0)
[2024-04-29 04:05] VITALS: BP 124/61
[2024-04-29 06:00] VITALS: BMI 25.5
[2024-04-29 07:01] LABS: Glucose - Point of Care 145 mg/dl (70-99)
[2024-04-29] MEDS: SPIRIVA RESPIMAT 2.5 MCG 2 PUFF INH (07:24)
[2024-04-29 07:30] VITALS: BP 125/65
[2024-04-29 07:42] LABS: Hematocrit 35.9 % (37.0-47.0); Hemoglobin 11.2 g/dL (12.0-16.0); Mean Corp Hgb Conc. 31.2 g/dL (33.0-37.0); Mean Corpuscular Hgb 25.9 pg (27.0-31.0); Mean Corpuscular Volume 82.9 fL (81.0-99.0); Mean Platelet Volume 9.8 fL (7.4-10.4); Platelet Count 123 10^3/uL (130-400); Red Blood Cell Count 4.33 10^6/uL (4.20-5.40); Red Cell Dist. Width 15.5 % (11.5-14.5); White Blood Cell Count 3.4 10^3/uL (4.8-10.8)
[2024-04-29] MEDS: MUCINEX 1200 MG PO (08:19)
[2024-04-29] MEDS: CARDIZEM CD 120 MG PO (08:20)
[2024-04-29] MEDS: LASIX 20 MG IV (08:20)
[2024-04-29] MEDS: FEOSOL 325 MG PO (08:21)
[2024-04-29] MEDS: ELIQUIS 5 MG PO (08:21)
[2024-04-29] MEDS: OCUVITE SOFTGEL 1 CAP PO (08:21)
[2024-04-29] MEDS: REQUIP 0.25 MG PO (08:21)
[2024-04-29] MEDS: ALPHAGAN P 0.15% EYE DROPS 1 DROP BOTH EYES (08:29)
[2024-04-29] MEDS: CARDIZEM SR 60 MG PO (09:57)
--- NOTE | 2024-04-29 09:58 | W.PN.HOSP.TC ---
Today's Communication/Plan
-
Discharge
Assessment / Plan
Assessment / Plan
Gen-AAOx3, NAD
HEENT-NC, AT, anicteric, clear oral mm
Neck-supple
CV-reg, no M, +S1/S2
Lungs-clear B/L
Abd-soft, NT, ND
Ext-no edema
Musculoskeletal-no cyanosis, clubbing
Skin-warm and dry
Neuro-grossly non-focal
Psych-calm, cooperative
New atrial fibrillation -with RVR. Now on Eliquis, oral Cardizem. Appreciate cardiology input. TSH 11.5, free T4 normal. Recommend outpatient follow-up with PCP. Hold off on starting levothyroxine in light of atrial fibrillation. Verapamil
discontinued.
Acute heart failure with preserved EF exacerbation -improving. Given contraction alkalosis will discontinue Lasix on discharge and follow-up next week in the office with cardiology. Discussed with Dr. Graham.
Daughter states she was on twice daily Lasix a few months ago but dose was reduced due to dryness in her throat.
Acute COPD exacerbation -mild exacerbation. Appreciate pulmonary input. No wheezing on exam, hold off on systemic steroids. Recently started on home oxygen at 2 L at nighttime, as needed during daytime only. She does have a pulse ox meter at
home.
Normocytic Anemia
- Monitor CBC
Essential hypertension -stable.
DM2 with hyperglycemia -hemoglobin A1c 6.0%. Resume metformin on discharge. Glucose 145 this morning. Had low resistance corrective scale.
Sjogren's syndrome: Stable
Psoriasis
- recommended OP Rheum FU
Glaucoma:
- Continue Alphagan and Xalatan drops
Hx squamous cell right tonsil, s/p radiation
Hyperlipidemia
Major Depressive Disorder
History of Pulmonary Hypertension
History of CKD Stage 2
Restless Leg Syndrome?
Full code
Dispo -medically stable for discharge home today. Outpatient follow-up. Updated son on the phone.
32 minutes spent in discharge process.
Anticipated Discharge: Today
Subjective/Interval History
-
Date of Service: April 29, 2024
Patient seen and examined. No new complaints.
Objective Data
-
Labs:
Laboratory Results
04/29/24
07:13
WBC 3.4 L
Hgb 11.2 L
Hct 35.9 L
Plt Count 123 L
Vital Signs:
Vital Signs
Temp Pulse Resp BP Pulse Ox
98.3 F 88 15 124/61 94
04/29/24 07:30 04/29/24 08:20 04/29/24 07:33 04/29/24 08:20 04/29/24 07:30
I&O
04/28/24 04/29/24 04/30/24
06:59 06:59 06:59
Intake Total 1020 / 1020 600 / 600
Output Total 625 / 625 750 / 750
Balance 395 / 395 -150 / -150
Review of Systems
-
History Source: Patient
All other systems: Reviewed and negative
--- NOTE | 2024-04-29 10:13 | W.DS.TRANS ---
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
-
Discharge Instructions:
Discharge Diagnosis/Procedures Atrial fibrillation, heart failure exacerbation,
COPD exacerbation
Diet 2 Gram Sodium,Restrict fluids to 48 oz
Activity As tolerated
Driving Restrictions As prior to admission
Bathing Restrictions None
Blood Work BMP in 1 week
Specialty Instructions Weigh Daily
Instructions:
Stand-Alone Forms:
Changes to Home Medications: Yes
Discharge Medications:
DC Medications w/original date entered in [facility]
albuterol sulfate 90 mcg/actuation aerosol inhaler 2 puff inhalation R Q4HPRN PRN sob 02/18/21
brimonidine 0.15 % eye drops (Alphagan P) 1 drp BOTH EYES DAILY Lung/breathing issues 02/18/21
guaifenesin 600 mg tablet, extended release 12 hr (Mucus Relief ER) 1,200 mg PO DAILY cough 02/18/21
latanoprost 0.005 % eye drops 1 drp BOTH EYES HS Eye condition 02/18/21
lorazepam 0.5 mg tablet 0.5 mg PO BIDPRN PRN anxiety 02/18/21
metformin 850 mg tablet 850 mg PO DAILY Diabetes 02/18/21
tiotropium bromide 18 mcg capsule with inhalation device (Spiriva with HandiHaler) 18 mcg inhalation R DAILY Lung/breathing issues 02/18/21
ropinirole 0.25 mg tablet 0.25 mg PO TID #90 tabs 02/22/21
azelastine 137 mcg (0.1 %) nasal spray 1 spray intranasal BID 04/27/24
ferrous sulfate 27 mg iron tablet 27 mg PO DAILY 04/27/24
vitamins A,C,U-ybfv-zcmsse 4,296 mcg-226 mg-90 mg capsule (PreserVision AREDS) 1 cap PO BID 04/27/24
apixaban 5 mg tablet (Eliquis) 5 mg PO BID #60 tabs 04/29/24
diltiazem HCl 120 mg capsule,extended release 24 hr 120 mg PO DAILY #30 caps 04/29/24
Home Medication Changes
Stop verapamil
Stop furosemide
Pending Results: No
--- NOTE | 2024-04-29 10:32 | CM ---
Patient seen bedside, CM offered VN to patient, patient declined. Patient reports her daughter will be providing transportation home. Patient reports she is eager to go home and get some rest. CM reviewed IMM with patient, patient declining to sign
at this time. CM will continue to follow for all discharge planning needs.
Plan; home no needs, daughter to provide transportation home.
[2024-04-29 11:25] VITALS: BP 93/57
[2024-04-29 11:49] LABS: Glucose - Point of Care 227 mg/dl (70-99)
--- NOTE | 2024-04-29 12:30 | PTCARENOTE ---
Reviewed discharge instructions with patient and daughter. Both verbalize understanding of instructions and deny questions at this time. Peripheral IV and tele box removed. Patient left via wheelchair with staff escort.
--- NOTE | 2024-04-29 12:38 | W.PN.CARDCBS ---
Addendum entered and electronically signed by Bear Graham DO 04/29/24 15:43:
I saw and examined the patient.
The Dust Brush Assembler's note was reviewed and I agree with the note.
Comment:
Plan:
In light of possible contraction alkalosis, hospitalist discussed consideration to reduce Lasix. For now we will stop Lasix and reassess consideration to resume Lasix at the follow-up visit next week.
Continue to monitor daily weights.
Cardizem increased to 180 mg daily for better heart rate control.
Continue anticoagulation.
Will discuss consideration for cardioversion with the patient and her daughter after 4 weeks of anticoagulation if the patient tolerates anticoagulation.
We reviewed her echocardiogram showing preserved LV function with stable moderate aortic stenosis and stable mild mitral stenosis.
She is on chronic O2 with a history of COPD
Discussed with primary service.
Outpatient follow-up has been arranged.
Original Note:
Today's Communication / Plan
-
No Lasix PO dose upon d/c to home, will reassess as an outpatient next week and start Lasix then if appropriate
Increase Cardizem CD to 180 mg daily
Impression / Plan
-
PCP: Dr. Olivas
Package Handler: Dr. Graham
Impression:
Acute worsening of chronic shortness of breath
Acute HFpEF
COPD exacerbation
Rapid Afib w/ RVR - Newly diagnosed this admission
Chronic hypoxia recently placed on 2L home O2
Mild mitral stenosis with moderate aortic stenosis from echo 08/2023
Hypertension
Dyslipidemia
Type 2 diabetes mellitus
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
Microcytic anemia
History of Sjogren's
Echo 08/09/2023: EF 50-55%, mild MR, mild MS, mod with peak/mean gradients 57/34 mmHg, trace AI
Echo 04/28/2024: EF 55-60%, mild conc LVH, normal RV size and function, mild MS peak/mean 17/8 mmHg, mod with peak/mean 54/30 mmHg, mild to mod TR with PAP 48 mmHg
Plan:
-Patient med list on admission reconciled as Lasix 20 mg daily. Patient has her own med list in the room that say Lasix 20 mg BID. Searched through EMR records in the office and patient previously told in January by her PCP to increase Lasix to 20 mg
BID for a week to help with HF symptoms, but then told to resume her usual dose. Patient reported taking Lasix 20 mg daily at cardiology office visit within in the last month. Patient was diuresed with Lasix 20 mg IV daily this admission.
-Patient now approaching contraction alkalosis, will ask patient to stop Lasix PO upon discharge and be re-evaluated in the office next week. Lasix instructions outlined on discharge instructions sheet
-EF preserved by echo
- stable by echo
-New diagnosis of Afib this admission. Patient remains in Afib, but HRs somewhat controlled on Cardizem 120 mg daily. Will increase Cardizem CD to 180 mg daily on 04/29/24. Med list adjusted. Can decide on suitability of rhythm control strategy as an
outpatient pending response to OAC and rate control.
-Patient is chronically on oxygen at 2 L NC.
-Patient is stable for d/c on 04/29/24 and cardiology follow up arranged.
HPI: Zoya is a pleasant 83-year-old female who follows routinely with my colleague Dr. Graham recently seen April 22. She has a past medical history of COPD, hypertension, diabetes, sjogrens syndrome, psoriasis, history of squamous cell right
tonsil cancer status post radiation with mild mitral stenosis with a mean transit mitral gradient of 6 mmHg and moderate aortic stenosis with peak/mean transaortic gradients 57/34 mmHg with low normal LV ejection fraction estimated 50-55% based on
echocardiogram in August 2023. She has had progressive shortness of breath which has required increased doses of Lasix. She is also recently been seen by pulmonary and was recently put on home O2 within the last week. When last seen she was
taking Lasix 20 mg once daily and her weight was 177 pounds. At the time of her office visit no change was made to her Lasix but she was requested to have a repeat echocardiogram to reassess aortic valve disease. She presents to [facility] with acute worsening of shortness of breath of the last several days. She denies URI signs or symptoms or fevers. She denies cough.
Progress Note - Package Handler
Subjective
Date of Service: April 29, 2024
She feels well, she wants to go home, she does not want VN
Objective
Labs:
04/29/24 07:13
04/28/24 07:28
Labs
Hgb 11.2 g/dL (12.0-16.0) L 04/29/24 07:13
Hct 35.9 % (37.0-47.0) L 04/29/24 07:13
Plt Count 123 10^3/uL (130-400) L 04/29/24 07:13
PT 13.2 Sec (11.4-14.6) 04/27/24 00:16
INR 1.02 04/27/24 00:16
APTT 55.4 Sec (23.4-35.0) H 04/28/24 21:05
Sodium 137 mmol/L (135-145) 04/28/24 07:28
Potassium 3.9 mmol/L (3.5-5.1) 04/28/24 07:28
BUN 10 mg/dl (7-17) 04/28/24 07:28
Creatinine 0.5 mg/dL (0.6-1.0) L 04/28/24 07:28
Glucose 145 mg/dl (70-99) H 04/28/24 07:28
Troponins
04/26/24
23:52
Troponin I 0.012
Vital Signs and I&O:
Vital Signs
Temp Pulse Resp BP Pulse Ox
98.3 F 92 20 93/57 97
04/29/24 11:25 04/29/24 11:25 04/29/24 11:25 04/29/24 11:25 04/29/24 11:25
Vital Signs
Temp Pulse Resp BP Pulse Ox
98.3 F 92 20 93/57 97
04/29/24 11:25 04/29/24 11:25 04/29/24 11:25 04/29/24 11:25 04/29/24 11:25
Intake & Output
04/27/24 04/28/24 04/29/24 04/30/24
06:59 06:59 06:59 06:59
Intake Total 1020 / 1020 600 / 600
Output Total 325 / 325 625 / 625 750 / 750
Balance -325 / -325 395 / 395 -150 / -150
== END 2024-04-29 12:43 | disposition home or self-care (01) | DRG 291 ==
LOC: 4 EAST ACU 02:41
PROVIDERS: Clinical Nurse Specialist Family Health; Nurse Practitioner Family; ADMITTING PHYSICIAN Internal Medicine; ATTENDING PHYSICIAN Hospitalist; CONSULT PHYSICIAN Internal Medicine Cardiovascular Disease; CONSULT PHYSICIAN Internal Medicine Pulmonary Disease; EMERGENCY PHYSICIAN Emergency Medicine; FAMILY PHYSICIAN Family Medicine
DX: I13.0 Hypertensive heart and chronic kidney disease with heart failure and stage 1 through stage 4 chronic kidney disease, or unspecified chronic kidney disease (principal); I50.33 Acute on chronic diastolic (congestive) heart failure; J44.1 Chronic obstructive pulmonary disease with (acute) exacerbation; E87.3 Alkalosis; N18.2 Chronic kidney disease, stage 2 (mild); I48.91 Unspecified atrial fibrillation; M35.00 Sjogren syndrome, unspecified; E11.22 Type 2 diabetes mellitus with diabetic chronic kidney disease
CPT/HCPCS: 71046; 80048; 80053; 80061; 82962; 83036; 83735; 83880; 84439; 84443; 84484; 85025; 85027; 85610; 85730; 93005; 93306; 93970; 94640; 96374; 97162; 99285

== ENCOUNTER 2024-05-03 16:23 | Inpatient (IN) | payer OTHER, SELFPAY ==
[2024-05-03] VITALS (11 sets, daily range): BP systolic 98–137; BP diastolic 54–113; BMI 27.1; BMI 25.7
[2024-05-03 14:10] LABS: % Basophils 0.9 % (0-2); % Eosinophils 1.2 % (0-6); % Immature Granulocytes 0.2 % (0-0.5); % Lymphocytes 16.8 % (20.5-51.1); % Monocytes 10.1 % (1.7-9.3); % Neutrophils 70.8 % (42.2-75.2); Absolute Basophils 0.1 10^3/uL (0-0.2); Absolute Eosinophils 0.1 10^3/uL (0-0.7); Absolute Monocytes 0.6 10^3/uL (0.1-0.6); Absolute Neutrophils 4.1 10^3/uL (1.4-6.5); Hematocrit 40.4 % (37.0-47.0); Mean Corp Hgb Conc. 29.7 g/dL (33.0-37.0); Mean Corpuscular Hgb 25.8 pg (27.0-31.0); Mean Corpuscular Volume 86.9 fL (81.0-99.0); Mean Platelet Volume 10.1 fL (7.4-10.4); Nucleated Red Blood Cells % 0 %; Platelet Count 169 10^3/uL (130-400); Red Blood Cell Count 4.65 10^6/uL (4.20-5.40); Red Cell Dist. Width 16.7 % (11.5-14.5); White Blood Cell Count 5.7 10^3/uL (4.8-10.8)
[2024-05-03 14:21] LABS: ALT (SGPT) 37 U/L (0-35); AST (SGOT) 54 U/L (14-36); Alkaline Phosphatase 187 U/L (38-126); Blood Urea Nitrogen 16 mg/dl (7-17); Calcium 9.5 mg/dl (8.4-10.2); Carbon Dioxide 32 mmol/L (22-30); Chloride 97 mmol/L (98-107); Estimated Creatinine Clearance 72 ml/min; Glucose 137 mg/dl (70-99); Potassium 4.8 mmol/L (3.5-5.1); Sodium 137 mmol/L (135-145); Total Bilirubin 0.8 mg/dl (0.2-1.3); eGFR > 60.00
[2024-05-03 14:27] LABS: NT-proBNP 1850 pg/ml
--- NOTE | 2024-05-03 14:49 | ED.GENMED ---
History of Present Illness
General
Chief Complaint: Breathing Problem
Time Seen by Provider: 05/03/24 14:49
History of Present Illness
History of Present Illness:
HPI: Patient presents due to shortness of breath and weakness. The patient was recently here with shortness of breath last visit. At that time she went into A-fib and Cardizem was increased and she was placed on Eliquis 1 week ago. She denies any
chest pain. She has been using oxygen since her last admission. Her weights have been about the same.
EXAM:
GENERAL: Appears generally weak and somewhat debilitated
HEENT: Moist oral mucosa
CARDIOVASCULAR: No murmurs, tachycardic heart rate, irregular rhythm, No chest wall tenderness
PULMONARY: Minimal respiratory distress, bibasilar rales
ABDOMEN: Soft with no peritoneal signs, no tenderness
NEUROLOGIC: Good strength all extremities, no coordination deficits
PSYCHIATRIC: Appropriate mental status, normal insight and judgement
EXTREMITIES: Nontender, 2+ bilateral edema, moves all extremities equally
SKIN: No rash, no lesions
TIME OF INITIAL ENCOUNTER: 2:30 PM
NUMBER AND COMPLEXITY OF PROBLEMS ADDRESSED AT THE ENCOUNTER
� Chronic conditions affecting care: COPD/former smoker, high blood pressure, hyperlipidemia, diabetes, tonsillar cancer
� Acute Exacerbation and/or Progression of Chronic Illness: This is an acute but recurring problem
� Differential Diagnosis includes: COPD exacerbation, CHF exacerbation, rapid A-fib
AMOUNT AND/OR COMPLEXITY OF DATA TO BE REVIEWED AND ANALYZED
� I performed an independent evaluation of and my interpretation is:
EKG: A-fib 137, leftward axis deviation, nonspecific ST abnormality
CT:
X-rays: Density again noted at the left base
Laboratory Studies: White count 5.7, hemoglobin 12.0, bicarb slightly elevated at 32, minimal transaminase elevation, BNP 1850 which is over twice what it was last week
Other:
� Review of other/old records: BNP on 04/26/2024 was 874
� Clinical information was obtained by an independent historian: Spoke to family at bedside
� Prescriptions/Medications Considered but not given:
� Further testing considered but not performed:
RISK OF COMPLICATIONS AND/OR MORBIDITY OR MORTALITY OF PATIENT MANAGEMENT
� Social determinants of health affecting care: Lives at home
� Discussion with other providers: Hospitalist Dr. Dick for admission at 3:30 PM
� Escalation of care including admission/observation vs risk of discharge considered: The patient was placed on Eliquis just 1 week ago therefore will not cardiovert in the ED. She was placed on IV Cardizem bolus and drip as her
initial rate was in the 140s. The patient's Lasix was held this past week related to presumed metabolic alkalosis. She states that her weight has been about the same. However she has been feeling very weak which may be related to the rapid A-fib.
Past History
Past History
ED Past Medical History: Cancer (Tonsils and throat), COPD, HTN, Hypercholesterolemia, NIDDM and Other (glaucoma, )
ED Past Surgical History: Other (cataracts)
Social History
Tobacco: Former smoker
Alcohol: None
Personal:
Living: alone
Phy Exam
Physical Exam
Physical Exam:
See HPI
Scores
Heart Failure Risk
Heart Failure Risk Score: Not Applicable
Course
Orders/Labs/Results
Orders:
Orders
05/03/24 13:43
EKG [Electrocardiogram (*1)] Urgent
Reason for Study: Tachycardia
EKG- Treatment ONCE
05/03/24 13:56
Chest [CR Chest - 2 Views ] Urgent
Comment:
Reason For Exam: sOB
05/03/24 13:58
BNP [NT-proBNP] Urgent
CBC/With Diff [Complete Blood Count/With Diff] Urgent
CMP [Comprehensive Metabolic Panel] Urgent
05/03/24 14:58
Diltiazem HCl [Cardizem] 10 mg IV NOW STA
Furosemide [Lasix] 40 mg IV NOW STA
05/03/24 15:00
Diltiazem 125 mg/125 ml Nss [Cardizem] 125 mg in 125 ml IV PER PROTOCOL
Initial dose in mg/hr, then titrate:: 5
Titrate to keep:: Heart rate 80-100 bpm
Titrate by mg/hr:: 5 mg/hr
Frequency of titrations (minutes):: 15
Maximum dose in mg/hr:: 15
05/03/24 15:58
Admit/Transfer Patient As Directed
Co-Sign Provider:
Level of Care: Inpatient admission
Assign to:: Telemetry
Physician / Group: [id number]
Diagnosis: atrial fib with RVR
Reason for Telemetry: Arrhythmia
Date to Stop Telemetry: 05/06/24
Time to Stop Telemetry: 11:00
Reason for Hospitalization: atrial fib with RVR
Expected length of stay greater than two midnights?: Yes
ELOS- Estimated Length of Stay in days: 3
I certify the patient meets the requirements for IP care: Yes
05/03/24 16:01
Code Status As Directed
Resuscitation Status: Full Code
05/06/24 11:00
DC Protocol for Telemetry ONCE
Abnormal Lab Results
05/03/24
13:58
MCH 25.8 L pg
(27.0-31.0)
MCHC 29.7 L g/dL
(33.0-37.0)
RDW 16.7 H %
(11.5-14.5)
Absolute Lymphs (auto) 1.0 L 10^3/uL
(1.2-3.4)
Lymphocytes % 16.8 L %
(20.5-51.1)
Monocytes % 10.1 H %
(1.7-9.3)
Chloride 97 L mmol/L
(98-107)
Carbon Dioxide 32 H mmol/L
(22-30)
Glucose 137 H mg/dl
(70-99)
AST 54 H U/L
(14-36)
ALT 37 H U/L
(0-35)
Alkaline Phosphatase 187 H U/L
(38-126)
05/03/24 13:58
05/03/24 13:58
Vital Signs
Initial and Last Documented VS:
Initial Vital Signs
Temp Pulse Resp BP Pulse Ox
97.8 F 145 22 123/88 91
05/03/24 13:38 05/03/24 13:38 05/03/24 13:38 05/03/24 13:38 05/03/24 13:38
Last Documented Vital Signs
Temp Pulse Resp BP Pulse Ox
97.8 F 134 23 119/94 95
05/03/24 13:38 05/03/24 17:45 05/03/24 17:45 05/03/24 17:30 05/03/24 17:45
*Critical Care Note
Total Time (30-74mins, 75-104mins- exclusive of procedures): Not Applicable
ED Attending Note
-
Portions of this chart may have been created with voice recognition software.� Occasional wrong word or��sound alike� substitutions may have occurred due to the inherent limitations of voice recognition software.
Discharge Plan
Interventions
Interventions:
*Risk Screen - Suicide Last Done: 05/03/24 13:42
*General Assessment Last Done: 05/03/24 13:42
*Neglect/Abuse Screening Last Done: 05/03/24 13:42
ED- Fall Risk Assessment Last Done: 05/03/24 14:02
ED- Cardiac Assessment Last Done: 05/03/24 15:30
ED- Pulmonary Assessment Last Done: 05/03/24 15:30
[2024-05-03] MEDS: LASIX 40 MG IV (15:10)
[2024-05-03] MEDS: CARDIZEM 125 IV ×2 (15:10→22:40)
[2024-05-03] MEDS: CARDIZEM 10 MG IV (15:10)
--- NOTE | 2024-05-03 15:35 | HPS.HSE ---
Family Physician
-
Family Physician: Lindy Olivas
Chief Complaint
-
sob
History of Present Illness
83-year-old with past medical history for COPD, hypertension, hyperlipidemia, type 2 diabetes, gout, presented to us with short of breath which is worse with activity since yesterday patient complained of worsening lower extremities edema. Denied
any weight gain. Denied orthopnea. Patient denied chest pain, palpitation patient denied fever, chills. Patient denied headache, dizziness, syncopal episode patient denied abdominal pain, nausea, vomiting, diarrhea. Patient denied dysuria,
hematuria.
patient was admitted with CHF exacerbation, atrial fib with RVR. patient was discharged on Sunday and her Lasix was discontinued upon discharge.
Medical History
Past Medical History
Past Medical History: Reports Other
Additional Past Medical History:
Hyperlipidemia
COPD
Type 2 diabetes
Major depression
Hypertension
Stage II chronic kidney disease
S Sjogren's syndrome
Pleural effusion
Right tonsillitis cell carcinoma
Interstitial lung disease
Glaucoma
Aortic stenosis
Restless leg syndrome
Diastolic heart failure
Past Surgical History: Reports Other
Additional Past Surgical History:
Cataract extraction
Social History
Tobacco: Former Smoker
Alcohol: None
Drug: None
Living: With Family
Family History
Family History: Not pertinent
Allergies / Home Medications
Allergies reflects when Allergies were last updated in [employer].
Home Medications with original date entered in [employer]
Allergy/Medication List:
Allergies
Allergy/AdvReac Type Severity Reaction Status Date / Time
latex Allergy Unknown Unknown Verified 05/03/24 13:37
lisinopril Allergy Unknown Verified 05/03/24 13:37
simvastatin Allergy Unknown Verified 05/03/24 13:37
codeine AdvReac Mild Pharmacy Verified 05/03/24 13:37
to Review
Home Medications
albuterol sulfate 90 mcg/actuation aerosol inhaler 2 puff inhalation R Q4HPRN PRN sob 02/18/21
brimonidine 0.15 % eye drops (Alphagan P) 1 drp BOTH EYES DAILY Lung/breathing issues 02/18/21
guaifenesin 600 mg tablet, extended release 12 hr (Mucus Relief ER) 1,200 mg PO DAILY cough 02/18/21
latanoprost 0.005 % eye drops 1 drp BOTH EYES HS Eye condition 02/18/21
lorazepam 0.5 mg tablet 0.5 mg PO BIDPRN PRN anxiety 02/18/21
metformin 850 mg tablet 850 mg PO DAILY Diabetes 02/18/21
tiotropium bromide 18 mcg capsule with inhalation device (Spiriva with HandiHaler) 18 mcg inhalation R DAILY Lung/breathing issues 02/18/21
ropinirole 0.25 mg tablet 0.25 mg PO TID #90 tabs 02/22/21
azelastine 137 mcg (0.1 %) nasal spray 1 spray intranasal BID 04/27/24
ferrous sulfate 27 mg iron tablet 27 mg PO DAILY 04/27/24
vitamins A,C,Z-euwx-oqyxjq 4,296 mcg-226 mg-90 mg capsule (PreserVision AREDS) 1 cap PO BID 04/27/24
apixaban 5 mg tablet (Eliquis) 5 mg PO BID #60 tabs 04/29/24
diltiazem HCl 180 mg capsule,extended release 24 hr (Cardizem CD) 180 mg PO DAILY Arrhythmia #30 caps 04/29/24
Review of Systems
-
Constitutional: Reports No Symptoms
EENT: Reports No Symptoms
Respiratory: Reports No Symptoms and Trouble Breathing
Cardiac: Reports No Symptoms
Abdomen/GI: Reports No Symptoms
: Reports No Symptoms
Musculoskeletal: Reports No Symptoms
Skin: Reports No Symptoms
Neurological: Reports No Symptoms
Endocrine: Reports No Symptoms
Hematologic/Lymphatic: Reports No Symptoms
Psych: Reports No Symptoms
Physical Exam
Vital Signs
Vital Signs
Temp Pulse Resp BP Pulse Ox
97.8 F 145 22 123/88 91
05/03/24 13:38 05/03/24 13:38 05/03/24 13:38 05/03/24 13:38 05/03/24 13:38
Physical Exam
General: Well Developed, Well Nourished and No Apparent Distress
HEENT: NormoCephalic, Moist mucous membranes and Atraumatic
Respiratory: Rales
Cardiac: S1/S2 and Regular Rhythm; No Murmur or Rub
GI: Soft, Non Tender, Non Distended and Normal Bowel Sounds; No Organomegaly
Rectal: Deferred by Provider
Musculoskeletal: No Clubbing, No Cyanosis and Other (Bilateral lower extremities edema)
Skin: No Rash
Neuro: AO x 3 and Nonfocal/grossly intact
Psych: Calm
Laboratory Results
-
05/03/24 13:58
05/03/24 13:58
Laboratory Results
Total Bilirubin 0.8 mg/dl (0.2-1.3) 05/03/24 13:58
AST 54 U/L (14-36) H 05/03/24 13:58
ALT 37 U/L (0-35) H 05/03/24 13:58
Alkaline Phosphatase 187 U/L (38-126) H 05/03/24 13:58
Data Reviewed
-
Diagnostic Radiology: Report Reviewed by me
Lab Data: Labs Reviewed by me
Impression/Plan
-
#atrial fib with RVR
-HR in 140's
-EKG with atrial fib with RVR
-Cardizem drip continued as well as oral cardizem continued
-eliquis continued
-cardiology consulted
#acute on chronic CHF exacerbation
-BNP 1850
-chest x ray with Left basilar opacity again seen in comparison to recent prior study, most likely representing subsegmental atelectasis and small left pleural effusion. Cannot exclude left basilar pneumonia.
-iv Lasix continued
-strict I & O
-daily weight
-cardiology following
-ECHO 04/28 with Left ventricular ejection fraction is 55-60% by volumetric assessment. Diastolic function indeterminate.
#chronic LFT elevation
-ast 54,alt 37,alk 187
-denied abdominal pain
-ctm
#HXt of COPD
-not in acute exacerbation
-Nebs from home continued
#Essential hypertension -stable.
#DM2 with hyperglycemia
-hemoglobin A1c 6.0%.
-Metformin continued
-Sliding scale
-Carb controlled diet
#Sjogren's syndrome: Stable
#Psoriasis
- recommended OP Rheum FU
#Glaucoma:
- Continue Alphagan and Xalatan drops
#Hx squamous cell right tonsil, s/p radiation
#Major Depressive Disorder/anxiety
-Lorazepam continued
#History of Pulmonary Hypertension
#History of CKD Stage 2
-cr stable
-ctm
#Restless Leg Syndrome
-Requip continued
# Iron deficiency anemia
-Hemoglobin stable
-Ferrous sulfate continued
# DVT prophylaxis
-Eliquis
# CODE STATUS
-Full code
--- NOTE | 2024-05-03 15:41 | W.PN.UPDATE ---
Update Note
Progress Note Update
I saw and examined the patient.
The RECREATION ENGINEER or PA's note was reviewed and I agree with the note.
Comment: 83-year-old female who presents with chief complaint of shortness of breath and weakness.
123/88, 145, 22, 97.8 �F, 91% RA
Appears mildly SOB, awake and alert, NCAT
tachy, irreg/irreg, normal S1/S2
CTAB anteriorly
+BS/soft/NT/ND
CN2-12 intact
2+ B/L LE R>L
Lab Results
05/03/24
13:58
WBC 5.7
RBC 4.65
Hgb 12.0
Hct 40.4
MCV 86.9
MCH 25.8 L
MCHC 29.7 L
RDW 16.7 H
Plt Count 169 D
MPV 10.1
Abs Immat Gran (auto) 0.0
Absolute Neuts (auto) 4.1
Absolute Lymphs (auto) 1.0 L
Absolute Monos (auto) 0.6
Absolute Eos (auto) 0.1
Absolute Basos (auto) 0.1
Immature Gran % 0.2
Neutrophils % 70.8
Lymphocytes % 16.8 L
Monocytes % 10.1 H
Eosinophils % 1.2
Basophils % 0.9
Nucleated RBC % 0
Sodium 137
Potassium 4.8
Chloride 97 L
Carbon Dioxide 32 H
BUN 16
Creatinine 0.6
Estimated Creat Clear 72
eGFR > 60.00
Glucose 137 H
Calcium 9.5
Total Bilirubin 0.8
AST 54 H
ALT 37 H
Alkaline Phosphatase 187 H
Ljq-M-Skbsqdhvghr Pept 1850
Total Protein 7.0
Albumin 4.0
CXR: Left basilar opacity again seen in comparison to recent prior study, most likely representing subsegmental atelectasis and small left pleural effusion. Cannot exclude left basilar pneumonia.
Afib with RVR:
-cont cardizem gtt
-cont Cardizem CD 180mg daily
-cont Eliquis
-IV lasix given in the ER, will continue 40mg IV Q12H for acute on chronic HFpEF (exacerbated by afib with RVR)
-c/s cards
[2024-05-03] MEDS: ELIQUIS 5 MG PO (20:33)
[2024-05-03] MEDS: REQUIP 0.25 MG PO (21:59)
[2024-05-03] MEDS: XALATAN OPHTHALMIC SOLUTION 1 DROP BOTH EYES (21:59)
[2024-05-04] VITALS (9 sets, daily range): BP systolic 103–151; BP diastolic 64–125; BMI 25.7
[2024-05-04 06:48] LABS: Hematocrit 37.3 % (37.0-47.0); Mean Corp Hgb Conc. 29.5 g/dL (33.0-37.0); Mean Corpuscular Hgb 25.6 pg (27.0-31.0); Mean Corpuscular Volume 86.9 fL (81.0-99.0); Platelet Count 132 10^3/uL (130-400); Red Blood Cell Count 4.29 10^6/uL (4.20-5.40); Red Cell Dist. Width 16.9 % (11.5-14.5); White Blood Cell Count 4.2 10^3/uL (4.8-10.8)
[2024-05-04 06:52] LABS: Glucose - Point of Care 145 mg/dl (70-99)
[2024-05-04 07:01] LABS: ALT (SGPT) 32 U/L (0-35); AST (SGOT) 43 U/L (14-36); Albumin 3.7 g/dl (3.5-5.0); Alkaline Phosphatase 160 U/L (38-126); Blood Urea Nitrogen 15 mg/dl (7-17); Calcium 9.1 mg/dl (8.4-10.2); Carbon Dioxide 36 mmol/L (22-30); Chloride 95 mmol/L (98-107); Direct Bilirubin 0.3 mg/dl (0.0-0.4); Estimated Creatinine Clearance 64 ml/min; Glucose 126 mg/dl (70-99); HDL Cholesterol 60 mg/dl; LDL Cholesterol, Calculated 98 mg/dl; Magnesium 1.6 mg/dl (1.6-2.3); Sodium 137 mmol/L (135-145); Total Bilirubin 0.7 mg/dl (0.2-1.3); Total Cholesterol 176 mg/dl (50-199); Total Protein 6.4 g/dl (6.3-8.2); Triglyceride 91 mg/dl (10-149); Very Low Density Lipoprotein 18 mg/dl (0-30); eGFR > 60.00
[2024-05-04 07:11] LABS: Potassium 4.7 mmol/L (3.5-5.1)
[2024-05-04] MEDS: CARDIZEM 125 IV (07:30)
[2024-05-04] MEDS: NOVOLOG FLEXPEN-LOW RESISTANCE SC ×2 (07:35→16:46)
[2024-05-04] MEDS: ALPHAGAN P 0.15% EYE DROPS 1 DROP BOTH EYES (07:36)
[2024-05-04] MEDS: ELIQUIS 5 MG PO ×2 (07:39→19:38)
[2024-05-04] MEDS: MUCINEX 1200 MG PO (07:39)
[2024-05-04] MEDS: FEOSOL 325 MG PO (07:39)
--- NOTE | 2024-05-04 07:45 | CON.CAR ---
Addendum entered and electronically signed by Sharif Mercado MD 05/04/24 08:36:
The below consult was signed prematurely in error before I had the ability to revise as I imported the note from April 29 for baseline information and plan to revise. Please do not utilize this for the medical record in terms of plan of care. I
will redo the consult to follow.
Original Note:
Consultation
Consultation Request
Date/Time Consultation Requested: 05/04/2024
Date/Time Consultation Performed: 05/04/2024
Requesting Provider: Hospitalist
Performing Provider: Rogelio
Reason for Consultation: A-fib with RVR
Medical History
-
Chief Complaint: A-fib with RVR
History of Present Illness:
83-year-old female with recent admission and new diagnosis of atrial fibrillation with rapid ventricular response. She was discharged for 4 weeks of anticoagulation and assessment of rate control and Alisa presents approximately 5 days later with
atrial fibrillation with symptoms and RVR.
Past Medical History
Past Medical History: Arrhythmias
Social History
Tobacco: Non-Smoker
Alcohol: None
Drug: None
Personal: Other
Living: Other
Employment: Not Employed
Family History
Family History: Reviewed & Not Pertinent
Allergies / Home Medications
Allergy/AdvReac Type Severity Reaction Status Date / Time
latex Allergy Unknown Unknown Verified 05/03/24 13:37
lisinopril Allergy Unknown Verified 05/03/24 13:37
simvastatin Allergy Unknown Verified 05/03/24 13:37
codeine AdvReac Mild Pharmacy Verified 05/03/24 13:37
to Review
�Medication �Instructions �Recorded �Confirmed �Type
albuterol sulfate 90 mcg/actuation 2 puff inhalation R Q4HPRN PRN sob 02/18/21 05/03/24 History
aerosol inhaler
brimonidine 0.15 % eye drops 1 drp BOTH EYES DAILY Eye Condition 02/18/21 05/03/24 History
(Alphagan P)
guaifenesin 600 mg tablet, 1,200 mg PO DAILY cough 02/18/21 05/03/24 History
extended release 12 hr (Mucus
Relief ER)
latanoprost 0.005 % eye drops 1 drp BOTH EYES HS Eye condition 02/18/21 05/03/24 History
lorazepam 0.5 mg tablet 0.5 mg PO BIDPRN PRN anxiety 02/18/21 05/03/24 History
metformin 850 mg tablet 850 mg PO DAILY Diabetes 02/18/21 05/03/24 History
tiotropium bromide 18 mcg capsule 18 mcg inhalation R DAILY 02/18/21 05/03/24 History
with inhalation device (Spiriva Lung/breathing issues
with HandiHaler)
ropinirole 0.25 mg tablet 0.25 mg PO TID #90 tabs 02/22/21 05/03/24 Rx
azelastine 137 mcg (0.1 %) nasal 1 spray intranasal BID 04/27/24 05/03/24 History
spray
ferrous sulfate 27 mg iron tablet 27 mg PO DAILY 04/27/24 05/03/24 History
vitamins A,C,B-dunc-qvoowo 4,296 1 cap PO BID 04/27/24 05/03/24 History
mcg-226 mg-90 mg capsule
(PreserVision AREDS)
apixaban 5 mg tablet (Eliquis) 5 mg PO BID #60 tabs 04/29/24 05/03/24 Rx
diltiazem HCl 180 mg 180 mg PO DAILY Arrhythmia #30 caps 04/29/24 05/03/24 Rx
capsule,extended release 24 hr
(Cardizem CD)
Review of Systems
-
All other systems: Negative unless noted
Physical Exam
Vital Signs
Temp Pulse Resp BP Pulse Ox
97.6 F 91 16 108/85 96
05/04/24 03:42 05/04/24 03:41 05/04/24 03:42 05/04/24 03:41 05/04/24 03:42
Lab Results
05/04/24 06:19
05/04/24 06:19
Naf-M-Tevoihrbwoo Pept 1850 pg/ml 05/03/24 13:58
Impression / Plan
-
Rvda Master Certified Rv Technician: Dr. Graham
Impression:
Acute worsening of chronic shortness of breath
Acute HFpEF
COPD exacerbation
Rapid Afib w/ RVR - Newly diagnosed this admission
Chronic hypoxia recently placed on 2L home O2
Mild mitral stenosis with moderate aortic stenosis from echo 08/2023
Hypertension
Dyslipidemia
Type 2 diabetes mellitus
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
Microcytic anemia
History of Sjogren's
Echo 08/09/2023: EF 50-55%, mild MR, mild MS, mod with peak/mean gradients 57/34 mmHg, trace AI
Echo 04/28/2024: EF 55-60%, mild conc LVH, normal RV size and function, mild MS peak/mean 17/8 mmHg, mod with peak/mean 54/30 mmHg, mild to mod TR with PAP 48 mmHg
Plan:
-Patient med list on admission reconciled as Lasix 20 mg daily. Patient has her own med list in the room that say Lasix 20 mg BID. Searched through EMR records in the office and patient previously told in January by her PCP to increase Lasix to 20 mg
BID for a week to help with HF symptoms, but then told to resume her usual dose. Patient reported taking Lasix 20 mg daily at cardiology office visit within in the last month. Patient was diuresed with Lasix 20 mg IV daily this admission.
-Patient now approaching contraction alkalosis, will ask patient to stop Lasix PO upon discharge and be re-evaluated in the office next week. Lasix instructions outlined on discharge instructions sheet
-EF preserved by echo
- stable by echo
-New diagnosis of Afib this admission. Patient remains in Afib, but HRs somewhat controlled on Cardizem 120 mg daily. Will increase Cardizem CD to 180 mg daily on 04/29/24. Med list adjusted. Can decide on suitability of rhythm control strategy as an
outpatient pending response to OAC and rate control.
-Patient is chronically on oxygen at 2 L NC.
-Patient is stable for d/c on 04/29/24 and cardiology follow up arranged.
HPI: Zoya is a pleasant 83-year-old female who follows routinely with my colleague Dr. Graham recently seen April 22. She has a past medical history of COPD, hypertension, diabetes, sjogrens syndrome, psoriasis, history of squamous cell right
tonsil cancer status post radiation with mild mitral stenosis with a mean transit mitral gradient of 6 mmHg and moderate aortic stenosis with peak/mean transaortic gradients 57/34 mmHg with low normal LV ejection fraction estimated 50-55% based on
echocardiogram in August 2023. She has had progressive shortness of breath which has required increased doses of Lasix. She is also recently been seen by pulmonary and was recently put on home O2 within the last week. When last seen she was
taking Lasix 20 mg once daily and her weight was 177 pounds. At the time of her office visit no change was made to her Lasix but she was requested to have a repeat echocardiogram to reassess aortic valve disease. She presents to [place] [facility] with acute worsening of shortness of breath of the last several days. She denies URI signs or symptoms or fevers. She denies cough.
Data Reviewed
-
EKG: Tracing Personally Visualized and interpreted
Radiology: Image Personally Visualized and interpreted
Medical Tests (Nuc Med, Echo etc): Image Personally Visualized and interpreted
Labs: Labs Reviewed by me
Old Records: Reviewed
[2024-05-04] MEDS: GLUCOPHAGE 850 MG PO (07:48)
[2024-05-04] MEDS: CARDIZEM CD 180 MG PO (07:48)
[2024-05-04] MEDS: LASIX 40 MG IV ×2 (07:49→16:05)
--- NOTE | 2024-05-04 08:36 | CON.CAR ---
Consultation
Consultation Request
Date/Time Consultation Requested: May 04, 2024
Date/Time Consultation Performed: May 04, 2024
Requesting Provider: Hospitalist
Performing Provider: Rogelio
Reason for Consultation: A-fib with RVR
Medical History
-
Chief Complaint: A-fib with RVR
History of Present Illness:
�83-year-old female who presents with diastolic heart failure and atrial fibrillation with rapid ventricular response. She was just in the hospital where she had new onset atrial fibrillation and was placed on rate control oral anticoagulation.
She was discharged off of Lasix and presents with an elevated BNP, signs and symptoms of congestive heart failure, and heart rates in the low 100s. Her heart rate control was increased at discharge to 180 mg daily and rates here are in the low
100s. She is also on IV diltiazem drip. Also noted is her TSH of 13 suggesting that she is also hypothyroid and she has mild transaminitis.
�
�
�
��
�
Past Medical History
Past Medical History: Arrhythmias, COPD, HTN and Hypothyroidism
Social History
Tobacco: Non-Smoker
Alcohol: None
Drug: None
Personal: Other
Living: Other
Employment: Not Employed
Family History
Family History: Reviewed & Not Pertinent
Allergies / Home Medications
Allergy/AdvReac Type Severity Reaction Status Date / Time
latex Allergy Unknown Unknown Verified 05/03/24 13:37
lisinopril Allergy Unknown Verified 05/03/24 13:37
simvastatin Allergy Unknown Verified 05/03/24 13:37
codeine AdvReac Mild Pharmacy Verified 05/03/24 13:37
to Review
�Medication �Instructions �Recorded �Confirmed �Type
albuterol sulfate 90 mcg/actuation 2 puff inhalation R Q4HPRN PRN sob 02/18/21 05/03/24 History
aerosol inhaler
brimonidine 0.15 % eye drops 1 drp BOTH EYES DAILY Eye Condition 02/18/21 05/03/24 History
(Alphagan P)
guaifenesin 600 mg tablet, 1,200 mg PO DAILY cough 02/18/21 05/03/24 History
extended release 12 hr (Mucus
Relief ER)
latanoprost 0.005 % eye drops 1 drp BOTH EYES HS Eye condition 02/18/21 05/03/24 History
lorazepam 0.5 mg tablet 0.5 mg PO BIDPRN PRN anxiety 02/18/21 05/03/24 History
metformin 850 mg tablet 850 mg PO DAILY Diabetes 02/18/21 05/03/24 History
tiotropium bromide 18 mcg capsule 18 mcg inhalation R DAILY 02/18/21 05/03/24 History
with inhalation device (Spiriva Lung/breathing issues
with HandiHaler)
ropinirole 0.25 mg tablet 0.25 mg PO TID #90 tabs 02/22/21 05/03/24 Rx
azelastine 137 mcg (0.1 %) nasal 1 spray intranasal BID 04/27/24 05/03/24 History
spray
ferrous sulfate 27 mg iron tablet 27 mg PO DAILY 04/27/24 05/03/24 History
vitamins A,C,R-thtr-wjqkao 4,296 1 cap PO BID 04/27/24 05/03/24 History
mcg-226 mg-90 mg capsule
(PreserVision AREDS)
apixaban 5 mg tablet (Eliquis) 5 mg PO BID #60 tabs 04/29/24 05/03/24 Rx
diltiazem HCl 180 mg 180 mg PO DAILY Arrhythmia #30 caps 04/29/24 05/03/24 Rx
capsule,extended release 24 hr
(Cardizem CD)
Review of Systems
-
All other systems: Negative unless noted
Respiratory: Trouble Breathing
Cardiac: Palpitations
Physical Exam
Vital Signs
Temp Pulse Resp BP Pulse Ox
97.6 F 101 16 123/69 96
05/04/24 03:42 05/04/24 07:48 05/04/24 03:42 05/04/24 07:48 05/04/24 03:42
Lab Results
05/04/24 06:19
05/04/24 06:19
Euw-J-Hzhvrkvbnqu Pept 1850 pg/ml 05/03/24 13:58
Physical Exam
General: Well Developed and Well Nourished
HEENT: Normocephalic and Anicteric
Breast: Deferred by me
Rectal: Deferred by Provider
Musculoskeletal: No Clubbing and No Cyanosis
Skin: Warm
Neuro: Awake, Alert and Oriented
Hematologic/Lymphatic: No Lymphadenopathy
Psych: Calm
Impression / Plan
-
Employment Representative: Dr. Graham
Impression:
Acute diastolic heart failure
Atrial fibrillation with rapid ventricular response
Acute HFpEF
COPD exacerbation
Rapid Afib w/ RVR - Newly diagnosed this admission
Chronic hypoxia recently placed on 2L home O2
Mild mitral stenosis with moderate aortic stenosis from echo 08/2023
Hypertension
Dyslipidemia
Type 2 diabetes mellitus
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
Microcytic anemia
History of Sjogren's
Echo 08/09/2023: EF 50-55%, mild MR, mild MS, mod with peak/mean gradients 57/34 mmHg, trace AI
Echo 04/28/2024: EF 55-60%, mild conc LVH, normal RV size and function, mild MS peak/mean 17/8 mmHg, mod with peak/mean 54/30 mmHg, mild to mod TR with PAP 48 mmHg
Plan:
-Agree with IV Lasix
-Will increase her p.o. Cardizem. Reviewed old ECGs and sinus rates were in the 80s to 100s. I am reticent to add amiodarone at this time given her hypothyroidism noted on labs and mild transaminitis. Would defer to internal medicine workup and
treatment of her hypothyroidism.
- stable by echo
-This appears to be a failure of rate control given her readmission within 5 days of discharge. She is getting some fluids so we will plan some IV diuresis and I would advocate for a STEVEN guided cardioversion on Sunday on increased dose Cardizem to
40 mg daily. Could consider amiodarone although given her TSH noted on labs and mild transaminitis I am somewhat reticent
-She has a home oxygen requirement
HPI: Zoya is a pleasant 83-year-old female who follows routinely with my colleague Dr. Graham recently seen April 22. She has a past medical history of COPD, hypertension, diabetes, sjogrens syndrome, psoriasis, history of squamous cell right
tonsil cancer status post radiation with mild mitral stenosis with a mean transit mitral gradient of 6 mmHg and moderate aortic stenosis with peak/mean transaortic gradients 57/34 mmHg with low normal LV ejection fraction estimated 50-55% based on
echocardiogram in August 2023. She has had progressive shortness of breath which has required increased doses of Lasix. She is also recently been seen by pulmonary and was recently put on home O2 within the last week. When last seen she was
taking Lasix 20 mg once daily and her weight was 177 pounds. At the time of her office visit no change was made to her Lasix but she was requested to have a repeat echocardiogram to reassess aortic valve disease. She presents to [facility] with acute worsening of shortness of breath of the last several days. She denies URI signs or symptoms or fevers. She denies cough.
Data Reviewed
-
EKG: Tracing Personally Visualized and interpreted
Radiology: Image Personally Visualized and interpreted
Medical Tests (Nuc Med, Echo etc): Image Personally Visualized and interpreted
Labs: Labs Reviewed by me
Old Records: Reviewed
--- NOTE | 2024-05-04 09:46 | W.PN.HOSP.TC ---
Today's Communication/Plan
-
see bold
Assessment / Plan
Assessment / Plan
Gen: NAD, AAOx3.
Eyes: EOMI, PERRLA, no scleral icterus.
Neck: supple.
CV: tachy, irreg/irreg, +S1/S2, no m/r/g.
Resp: B/L rales, greatest in the bases
Abd: +BS, soft, NT, ND
Skin: No rashes. 1-2+ B/L LE edema
Neuro: CN 2-12 intact, non-focal.
Psych: Normal mood and affect.
CXR: Left basilar opacity again seen in comparison to recent prior study, most likely representing subsegmental atelectasis and small left pleural effusion. Cannot exclude left basilar pneumonia.
Afib with RVR:
-currently on cardizem gtt @ 5mg/hr
-Cardizem CD increased to 240mg daily
-cont Eliquis
-cont Lasix 40mg IV Q12H for acute on chronic HFpEF (exacerbated by afib with RVR)
-cards following
Hypothyroidism:
-start Levoxyl 25mcg daily
-recheck TFTs in 4 weeks
Other problems:
Elevated LFTs, chronic
COPD, not in acute exacerbation: Albuterol PRN
Essential hypertension: cont Cardziem
DM2: cont Metformin/SSI/accuchecks
Sjogren's syndrome
Psoriasis
Glaucoma: Continue Alphagan and Xalatan drops
h/o squamous cell right tonsil, s/p radiation
Major Depressive Disorder/anxiety: Ativan PRN
h/o Pulmonary Hypertension
Restless Leg Syndrome: cont Requip
Iron deficiency anemia: cont Ferrous Sulfate
FULL/Eliquis
Total time spent on today's encounter was 50 minutes which included time spent in counseling the patient/family regarding diagnosis and treatment plan as listed above, goals of care, and symptom management. Case was discussed with nursing staff,
specialists, and care coordinators/case management. All labs and imaging personally reviewed by me. Remainder the time spent in detailed review of previous records, lab data, imaging, and other medical provider documentation.
Anticipated Discharge: 24 - 48 hours
Subjective/Interval History
-
Date of Service: May 04, 2024
c/o SOB, denies CP.
Objective Data
-
Labs:
Laboratory Results
05/04/24
06:19
WBC 4.2 L
Hgb 11.0 L
Hct 37.3
Plt Count 132 D
Sodium 137
Potassium 4.7
Chloride 95 L
Carbon Dioxide 36 H
BUN 15
Creatinine 0.7
Glucose 126 H
Calcium 9.1
Total Bilirubin 0.7
AST 43 H
ALT 32
Alkaline Phosphatase 160 H
Vital Signs:
Vital Signs
Temp Pulse Resp BP Pulse Ox
97.6 F 89 18 123/69 97
05/04/24 07:30 05/04/24 09:30 05/04/24 07:30 05/04/24 07:48 05/04/24 07:30
[2024-05-04] MEDS: REQUIP 0.25 MG PO ×3 (10:07→22:21)
[2024-05-04] MEDS: SYNTHROID 25 MCG PO (10:14)
[2024-05-04 11:41] LABS: Glucose - Point of Care 183 mg/dl (70-99)
[2024-05-04] MEDS: NOVOLOG FLEXPEN-LOW RESISTANCE 1 UNITS SC (12:40)
[2024-05-04 16:46] LABS: Glucose - Point of Care 139 mg/dl (70-99)
[2024-05-04 22:08] LABS: Glucose - Point of Care 136 mg/dl (70-99)
[2024-05-04] MEDS: XALATAN OPHTHALMIC SOLUTION 1 DROP BOTH EYES (22:21)
--- NOTE | 2024-05-04 22:46 | W.PN.UPDATE ---
Update Note
Progress Note Update
Nurse notified provider that patient converted back to afib rvr with HR up to 150s, order placed for Metoprolol 5mg IV now for rate control. Metoprolol was effective for short period of time. Order given to give AM dose of Cardizem now.
[2024-05-04] MEDS: LOPRESSOR 5 MG IV (22:51)
--- NOTE | 2024-05-04 23:37 | PTCARENOTE ---
Pt received start of shift, HR afib 110s-130s. Pt in bed without NC on - pt states it is okay for her to do this as she does it at home. SPO2 check - 88-89% RA. 2L NC placed back on pt and informed pt to leave oxygen on. 92-94%. Pt ambulating to
bedside commode by self - voiding clear yellow urine. Pt denies any SOB or fatigue. Informed to notify RN if any changes, call carrizales within reach.
Pt HR consistently afib 130s-150s. Pt tachypneic but denies SOB. TT RAINBOW [employer]OUT FARM MANAGER Bridgette Johnson, 5mg IV Lopressor ordered and administered. Effective, HR 100s-120s.
[2024-05-05] VITALS (16 sets, daily range): BP systolic 99–122; BP diastolic 50–94; PULSE 98–99; O2SAT 95; BMI 25.3
--- NOTE | 2024-05-05 02:37 | PTCARENOTE ---
Around 0209 pt w/ run of sustained symptomatic VT followed by shorts bursts of 4-13 beat runs. Pt encouraged to cough and bear down, eventually pt broke back to afib. Pt states she felt as if she was going to lose consciousness accompanied by a
sense of doom/panic. BP 113/90, 102/81, 100/78. TT BULK PLANT OPERATOR Bridgette Johnson, Mg added on to morning labs. Labs drawn and sent. Pt currently afib 110s-130s w/o ectopy.
[2024-05-05 02:41] LABS: Hematocrit 35.8 % (37.0-47.0); Hemoglobin 11.1 g/dL (12.0-16.0); Mean Corpuscular Hgb 25.5 pg (27.0-31.0); Mean Corpuscular Volume 82.1 fL (81.0-99.0); Platelet Count 148 10^3/uL (130-400); Red Blood Cell Count 4.36 10^6/uL (4.20-5.40); White Blood Cell Count 4.5 10^3/uL (4.8-10.8)
[2024-05-05 02:58] LABS: Blood Urea Nitrogen 16 mg/dl (7-17); Calcium 9.1 mg/dl (8.4-10.2); Carbon Dioxide 37 mmol/L (22-30); Chloride 94 mmol/L (98-107); Estimated Creatinine Clearance 64 ml/min; Glucose 167 mg/dl (70-99); Magnesium 1.4 mg/dl (1.6-2.3); Potassium 4.6 mmol/L (3.5-5.1); Sodium 135 mmol/L (135-145); eGFR > 60.00
[2024-05-05] MEDS: MAGNESIUM SULFATE 50 IV (03:22)
[2024-05-05] MEDS: SYNTHROID 25 MCG PO (05:38)
[2024-05-05] MEDS: CARDIZEM CD 240 MG PO (06:08)
--- NOTE | 2024-05-05 06:13 | PTCARENOTE ---
Pt HR afib 120s-140s. TT SUPERVISOR [employer] Elizabeth. Cardizem CD 240mg given early per order.
[2024-05-05 07:21] LABS: Glucose - Point of Care 186 mg/dl (70-99)
[2024-05-05] MEDS: NOVOLOG FLEXPEN-LOW RESISTANCE 1 UNITS SC (07:21)
--- NOTE | 2024-05-05 08:36 | W.PN.CARDCBS ---
Addendum entered and electronically signed by Bere Rodriguez PA-C 05/05/24 15:26:
Called and spoke to patient's daughter. Gave update regarding patient's clinical status as well as medication changes today and plan for STEVEN/CV in AM. She is in agreement with plan, all questions answered. She was appreciative of update.
Original Note:
Today's Communication / Plan
-
Cont IV Lasix.
Wt coming down 3 lbs from last 24 hrs.
Cont to trend LFTs. LFTs coming down with diuresi.
Cont PO Cardizem
Resume IV Cardizem for better rate control.
NPO after midnight for STEVEN/cv May 06.
Add amiodarone 200 mg TID and monitor TSH and chest xray.
Defer to primary service regarding adjustment in synthroid dosing, which may change again as outpt with amiodarone.
Moderate stable by echo just completed late April 2024.
Was already on home O2.
Discussed with nursing.
Impression / Plan
-
.
Data Conversion Operator: Dr. Graham
Impression:
Acute HFpEF
Atrial fibrillation with rapid ventricular response, new dx last admit
COPD on home O2
Chronic hypoxia recently placed on 2L home O2
Mild mitral stenosis with moderate aortic stenosis from echo April 2024
Hypertension
Dyslipidemia
Type 2 diabetes mellitus
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
Microcytic anemia
History of Sjogren's
Echo 08/09/2023: EF 50-55%, mild MR, mild MS, mod with peak/mean gradients 57/34 mmHg, trace AI
Echo 04/28/2024: EF 55-60%, mild conc LVH, normal RV size and function, mild MS peak/mean 17/8 mmHg, mod with peak/mean 54/30 mmHg, mild to mod TR with PAP 48 mmHg
Plan:
Cont IV Lasix.
Wt coming down 3 lbs from last 24 hrs.
Cont to trend LFTs. LFTs coming down with diuresi.
Cont PO Cardizem
Resume IV Cardizem for better rate control.
NPO after midnight for STEVEN/cv May 06.
Add amiodarone 200 mg TID and monitor TSH and chest xray.
Defer to primary service regarding adjustment in synthroid dosing, which may change again as outpt with amiodarone.
Moderate stable by echo just completed late April 2024.
Was already on home O2.
Discussed with nursing.
HPI: Zoya is a pleasant 83-year-old female who follows routinely with my colleague Dr. Graham recently seen April 22. She has a past medical history of COPD, hypertension, diabetes, sjogrens syndrome, psoriasis, history of squamous cell right
tonsil cancer status post radiation with mild mitral stenosis with a mean transit mitral gradient of 6 mmHg and moderate aortic stenosis with peak/mean transaortic gradients 57/34 mmHg with low normal LV ejection fraction estimated 50-55% based on
echocardiogram in August 2023. She has had progressive shortness of breath which has required increased doses of Lasix. She is also recently been seen by pulmonary and was recently put on home O2 within the last week. When last seen she was
taking Lasix 20 mg once daily and her weight was 177 pounds. At the time of her office visit no change was made to her Lasix but she was requested to have a repeat echocardiogram to reassess aortic valve disease. She presents to [facility] with acute worsening of shortness of breath of the last several days. She denies URI signs or symptoms or fevers. She denies cough.
Progress Note - Data Conversion Operator
Subjective
Date of Service: May 05, 2024
Pt seen and examined. No cp. Breathing is better
Objective
Labs:
05/05/24 02:23
05/05/24 02:23
Labs
Hgb 11.1 g/dL (12.0-16.0) L 05/05/24 02:23
Hct 35.8 % (37.0-47.0) L 05/05/24 02:23
Plt Count 148 10^3/uL (130-400) 05/05/24 02:23
Sodium 135 mmol/L (135-145) 05/05/24 02:23
Potassium 4.6 mmol/L (3.5-5.1) 05/05/24 02:23
BUN 16 mg/dl (7-17) 05/05/24 02:23
Creatinine 0.7 mg/dL (0.6-1.0) 05/05/24 02:23
Glucose 167 mg/dl (70-99) H 05/05/24 02:23
Vital Signs and I&O:
Vital Signs
Temp Pulse Resp BP Pulse Ox
98.3 F 157 24 105/63 93
05/05/24 07:47 05/05/24 08:15 05/05/24 07:47 05/05/24 07:51 05/05/24 07:54
Vital Signs
Temp Pulse Resp BP Pulse Ox
98.3 F 157 24 105/63 93
05/05/24 07:47 05/05/24 08:15 05/05/24 07:47 05/05/24 07:51 05/05/24 07:54
Intake & Output
05/03/24 05/04/24 05/05/24 05/06/24
06:59 06:59 06:59 06:59
Intake Total 1235 / 1235
Output Total 1550 / 1550
Balance -315 / -315
Physical Exam
Physical Exam
General: No acute distress, AAOX3
Neck: Negative JVD
Heart: Irregularly irregular, Negative S3 positive S1/S2, Negative S4, No murmur
Lungs: CTA b/l, negative wheezes/rales/rhonchi
Abd: Positive BS, NT/ND, neg rebound/rigidity/guarding
Ext: Negative cyanosis/clubbing/edema
Neuro: nonfocal
[2024-05-05] MEDS: FEOSOL 325 MG PO (09:16)
[2024-05-05] MEDS: REQUIP 0.25 MG PO ×3 (09:16→22:31)
[2024-05-05] MEDS: GLUCOPHAGE 850 MG PO (09:16)
[2024-05-05] MEDS: MUCINEX 1200 MG PO (09:16)
[2024-05-05] MEDS: PACERONE 200 MG PO ×3 (09:17→22:31)
[2024-05-05] MEDS: LASIX 40 MG IV ×2 (09:17→16:12)
[2024-05-05] MEDS: ELIQUIS 5 MG PO ×2 (09:17→19:53)
[2024-05-05] MEDS: CARDIZEM 125 IV ×2 (09:18→16:09)
[2024-05-05] MEDS: ALPHAGAN P 0.15% EYE DROPS 1 DROP BOTH EYES ×2 (09:18→20:04)
[2024-05-05 11:37] LABS: Glucose - Point of Care 220 mg/dl (70-99)
[2024-05-05] MEDS: NOVOLOG FLEXPEN-LOW RESISTANCE 2 UNITS SC (12:30)
--- NOTE | 2024-05-05 13:47 | W.PN.HOSP.TC ---
Today's Communication/Plan
-
Monitor vital signs and see plan
Continue with Lasix
Amio started
Continue with Synthroid
Continue with diltiazem
PT/OT
Speech evaluation
Assessment / Plan
Assessment / Plan
Gen: NAD, AAOx3.
Eyes: EOMI, PERRLA, no scleral icterus.
Neck: supple.
CV: tachy, irreg/irreg, +S1/S2, no m/r/g.
Resp: B/L rales, greatest in the bases
Abd: +BS, soft, NT, ND
Skin: No rashes. 1-2+ B/L LE edema
Neuro: CN 2-12 intact, non-focal.
Psych: Normal mood and affect.
CXR: Left basilar opacity again seen in comparison to recent prior study, most likely representing subsegmental atelectasis and small left pleural effusion. Cannot exclude left basilar pneumonia.
Afib with RVR:
-currently on cardizem gtt @ 5mg/hr
Now started on amiodarone
-cont Eliquis
-cont Lasix 40mg IV
-cards following
Acute on chronic CHF with preserved EF
Continue with IV Lasix
Likely exacerbated by A-fib with RVR
h/o squamous cell right tonsil, s/p radiation
Due to dry throat, problems with eating dry food
Consult speech
Hypomagnesemia
replete
Hypothyroidism:
-started Levoxyl 25mcg daily
-recheck TFTs in 4 weeks
Other problems:
Elevated LFTs, chronic
COPD, not in acute exacerbation: Albuterol PRN
Essential hypertension: cont Cardziem
DM2: cont Metformin/SSI/accuchecks
Sjogren's syndrome
Psoriasis
Glaucoma: Continue Alphagan and Xalatan drops
h/o squamous cell right tonsil, s/p radiation
Major Depressive Disorder/anxiety: Ativan PRN
h/o Pulmonary Hypertension
Restless Leg Syndrome: cont Requip
Iron deficiency anemia: cont Ferrous Sulfate
FULL/Eliquis
Total time spent on today's encounter was 51 minutes which included time spent in counseling the patient/family regarding diagnosis and treatment plan as listed above, goals of care, and symptom management. Case was discussed with nursing staff,
specialists, and care coordinators/case management. All labs and imaging personally reviewed by me. Remainder the time spent in detailed review of previous records, lab data, imaging, and other medical provider documentation.
Anticipated Discharge: > 48 hours
Subjective/Interval History
-
Date of Service: May 05, 2024
Denies pain
Objective Data
-
Labs:
Laboratory Results
05/05/24
02:23
WBC 4.5 L
Hgb 11.1 L
Hct 35.8 L
Plt Count 148
Sodium 135
Potassium 4.6
Chloride 94 L
Carbon Dioxide 37 H
BUN 16
Creatinine 0.7
Glucose 167 H
Calcium 9.1
Vital Signs:
Vital Signs
Temp Pulse Resp BP Pulse Ox
97.7 F 93 20 112/67 94
05/05/24 11:30 05/05/24 12:30 05/05/24 11:30 05/05/24 11:32 05/05/24 11:30
I&O
05/04/24 05/05/24 05/06/24
06:59 06:59 06:59
Intake Total 1235 / 1235
Output Total 1550 / 1550 500 / 500
Balance -315 / -315 -500 / -500
--- NOTE | 2024-05-05 14:05 | PTOTSP ---
Speech Language Pathology
Pt seen for clinical bedside swallow evaluation. Pt with reports of difficulty swallowing harder/dry foods since XRT, but reported this has been stable since that time. She moistens foods to manage difficulty, but is having some difficulty
ordering things she would moisten with given current dietary restrictions. RD notified. She denies having had VSE or seeing LIMITED RADIOLOGY TECHNICIAN in the past.
This date, P.O. trials of regular solids and thin liquids provided. Adequate mastication, bolus formation, and A-P transit noted. 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 Pt reported
globus sensation at level of sternal notch x1 post solids, which cleared with a liquid wash. No overt signs of aspiration. Discussed options of modified diets, but it was decided to continue current diet.
Recommend:
(1) Continue regular solids/thin liquids with pt mositening dry foods
(2) Aspiration precautions: sit upright, slow rate, moisten dry foods, alternate solids and liquids
(3) Meds as tolerated
(4) VSE 7/ (for STEVEN tomorrow)
(5) LIMITED RADIOLOGY TECHNICIAN to continue to follow
--- NOTE | 2024-05-05 14:16 | CM ---
spoke with pt and daughter in room, she is prev indep, lives in an inlaw suite on her sons home- one story no steps. she weinberg sa cane and walker she uses and home O2 @ 2Liters- they are not sure of the [employer]. pt is weak and is requesting PT/OT
to eval for possible snf . they like Donna collaod and leander ferrell. await PT/OT eval.
[2024-05-05] MEDS: NOVOLOG FLEXPEN-LOW RESISTANCE SC (16:17)
[2024-05-05 16:18] LABS: Glucose - Point of Care 135 mg/dl (70-99)
[2024-05-05 22:20] LABS: Glucose - Point of Care 146 mg/dl (70-99)
[2024-05-05] MEDS: XALATAN OPHTHALMIC SOLUTION 1 DROP BOTH EYES (22:31)
[2024-05-05] MEDS: ATIVAN 0.5 MG PO (22:42)
--- NOTE | 2024-05-05 23:20 | PTCARENOTE ---
Pt received start of shift, HR controlled afib. Cardizem currently infusing at 10mg/hr. Pt informed RN that Brimonidine eyedrops are supposed to be BID AM&HS as this is what she does at home, updated in med rec list, TT BOBCAT DRIVER/LABOR, order updated. Pt anxious
about STEVEN/CV in AM, ativan requested - PRN ativan administered, see JAN.
[2024-05-06] VITALS (9 sets, daily range): BP systolic 106–135; BP diastolic 51–115; PULSE 71; O2SAT 96; BMI 25.6
[2024-05-06] MEDS: SYNTHROID 25 MCG PO (04:39)
[2024-05-06] MEDS: CARDIZEM 125 IV (04:49)
[2024-05-06 05:09] LABS: % Basophils 0.6 % (0-2); % Eosinophils 3.1 % (0-6); % Immature Granulocytes 0.3 % (0-0.5); % Lymphocytes 21.9 % (20.5-51.1); % Monocytes 15.1 % (1.7-9.3); Absolute Eosinophils 0.1 10^3/uL (0-0.7); Absolute Lymphocytes 0.7 10^3/uL (1.2-3.4); Absolute Monocytes 0.5 10^3/uL (0.1-0.6); Absolute Neutrophils 1.9 10^3/uL (1.4-6.5); Hematocrit 35.2 % (37.0-47.0); Hemoglobin 10.8 g/dL (12.0-16.0); Mean Corp Hgb Conc. 30.7 g/dL (33.0-37.0); Mean Corpuscular Hgb 25.7 pg (27.0-31.0); Mean Corpuscular Volume 83.8 fL (81.0-99.0); Mean Platelet Volume 9.7 fL (7.4-10.4); Nucleated Red Blood Cells % 0 %; Platelet Count 144 10^3/uL (130-400); Red Cell Dist. Width 17.2 % (11.5-14.5); White Blood Cell Count 3.2 10^3/uL (4.8-10.8)
[2024-05-06 05:31] LABS: ALT (SGPT) 32 U/L (0-35); AST (SGOT) 48 U/L (14-36); Albumin 3.3 g/dl (3.5-5.0); Alkaline Phosphatase 150 U/L (38-126); Blood Urea Nitrogen 14 mg/dl (7-17); Calcium 8.8 mg/dl (8.4-10.2); Chloride 91 mmol/L (98-107); Estimated Creatinine Clearance 64 ml/min; Glucose 121 mg/dl (70-99); Sodium 135 mmol/L (135-145); Total Bilirubin 0.6 mg/dl (0.2-1.3); Total Protein 6.1 g/dl (6.3-8.2); eGFR > 60.00
[2024-05-06 05:41] LABS: Carbon Dioxide 34 mmol/L (22-30)
[2024-05-06 07:17] LABS: Glucose - Point of Care 134 mg/dl (70-99)
[2024-05-06] MEDS: REQUIP 0.25 MG PO ×3 (07:18→22:50)
[2024-05-06] MEDS: ELIQUIS 5 MG PO ×2 (07:19→19:23)
[2024-05-06] MEDS: PACERONE 200 MG PO ×2 (07:19→19:23)
[2024-05-06] MEDS: ALPHAGAN P 0.15% EYE DROPS 1 DROP BOTH EYES ×2 (07:20→19:24)
[2024-05-06] MEDS: NOVOLOG FLEXPEN-LOW RESISTANCE SC ×2 (07:22→11:37)
--- NOTE | 2024-05-06 08:57 | PTCARENOTE ---
Assumed care of pt from night RN. Pt received awake and alert, Ox3. VSS, CM shows AF 117, Cardizem running at 15 mg/hr through right wrist. POX 98% on 2 liters. She remains NPO. Taken to [facility] for CV.
--- NOTE | 2024-05-06 09:24 | W.PN.CARDCBS ---
Addendum entered and electronically signed by Jenny Fierro PA-C 05/06/24 12:16:
updated patient's son Josh via telephone for 2:00.
Addendum entered and electronically signed by Jenny Fierro PA-C 05/06/24 11:38:
attempted to call patient's son Josh at phone number listed in chart to update. no answer. LMOM.
Original Note:
Today's Communication / Plan
-
Cont IV Lasix and transition to oral lasix next 24 hrs.
Wt has been coming down. Await wt today. 3 lbs down prior 24 hrs.
Cont to trend LFTs. LFTs coming down with diuresis, AST just slightly higher.
Stop IV Cardizem and remain off PO Cardizem given bradycardia post cv.
Resume IV Cardizem for better rate control.
Reduce amiodarone to 200 mg BID and monitor TSH and chest xray.
Defer to primary service regarding adjustment in synthroid dosing, which may change again as outpt with amiodarone.
Moderate stable by echo just completed late April 2024.
Was already on home O2, wean as able.
Daughter updated last 24 hrs.
Impression / Plan
-
.
Motor Grader Operator: Dr. Graham
Impression:
STEVEN/cv May 06, now in sinus bradycardia
Acute HFpEF
Atrial fibrillation with rapid ventricular response, new dx last admit
COPD on home O2
Chronic hypoxia recently placed on 2L home O2
Mild mitral stenosis with moderate aortic stenosis from echo April 2024
Hypertension
Dyslipidemia
Type 2 diabetes mellitus
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
Microcytic anemia
History of Sjogren's
Echo 08/09/2023: EF 50-55%, mild MR, mild MS, mod with peak/mean gradients 57/34 mmHg, trace AI
Echo 04/28/2024: EF 55-60%, mild conc LVH, normal RV size and function, mild MS peak/mean 17/8 mmHg, mod with peak/mean 54/30 mmHg, mild to mod TR with PAP 48 mmHg
Plan:
Cont IV Lasix and transition to oral lasix next 24 hrs.
Wt has been coming down. Await wt today. 3 lbs down prior 24 hrs.
Cont to trend LFTs. LFTs coming down with diuresis, AST just slightly higher.
Stop IV Cardizem and remain off PO Cardizem given bradycardia post cv.
Resume IV Cardizem for better rate control.
Reduce amiodarone to 200 mg BID and monitor TSH and chest xray.
Defer to primary service regarding adjustment in synthroid dosing, which may change again as outpt with amiodarone.
Moderate stable by echo just completed late April 2024.
Was already on home O2, wean as able.
Daughter updated last 24 hrs.
HPI: Zoya is a pleasant 83-year-old female who follows routinely with my colleague Dr. Graham recently seen April 22. She has a past medical history of COPD, hypertension, diabetes, sjogrens syndrome, psoriasis, history of squamous cell right
tonsil cancer status post radiation with mild mitral stenosis with a mean transit mitral gradient of 6 mmHg and moderate aortic stenosis with peak/mean transaortic gradients 57/34 mmHg with low normal LV ejection fraction estimated 50-55% based on
echocardiogram in August 2023. She has had progressive shortness of breath which has required increased doses of Lasix. She is also recently been seen by pulmonary and was recently put on home O2 within the last week. When last seen she was
taking Lasix 20 mg once daily and her weight was 177 pounds. At the time of her office visit no change was made to her Lasix but she was requested to have a repeat echocardiogram to reassess aortic valve disease. She presents to [facility] with acute worsening of shortness of breath of the last several days. She denies URI signs or symptoms or fevers. She denies cough.
Progress Note - Motor Grader Operator
Subjective
Date of Service: May 06, 2024
Pt seen and examined. No complaints. No chest pain..
Objective
Labs:
05/06/24 04:45
05/06/24 04:45
Labs
Hgb 10.8 g/dL (12.0-16.0) L 05/06/24 04:45
Hct 35.2 % (37.0-47.0) L 05/06/24 04:45
Plt Count 144 10^3/uL (130-400) 05/06/24 04:45
Sodium 135 mmol/L (135-145) 05/06/24 04:45
Potassium 4.0 mmol/L (3.5-5.1) 05/06/24 04:45
BUN 14 mg/dl (7-17) 05/06/24 04:45
Creatinine 0.7 mg/dL (0.6-1.0) 05/06/24 04:45
Glucose 121 mg/dl (70-99) H 05/06/24 04:45
Vital Signs and I&O:
Vital Signs
Temp Pulse Resp BP Pulse Ox
97.9 F 117 20 110/80 98
05/06/24 07:15 05/06/24 07:15 05/06/24 07:15 05/06/24 07:13 05/06/24 08:38
Vital Signs
Temp Pulse Resp BP Pulse Ox
97.9 F 117 20 110/80 98
05/06/24 07:15 05/06/24 07:15 05/06/24 07:15 05/06/24 07:13 05/06/24 08:38
Intake & Output
05/04/24 05/05/24 05/06/24 05/07/24
06:59 06:59 06:59 06:59
Intake Total 1235 / 1235
Output Total 1550 / 1550 800 / 800
Balance -315 / -315 -800 / -800
Physical Exam
Physical Exam
General: No acute distress, AAOX3
Neck: Negative JVD
Heart: Regular, Negative S3 positive S1/S2, Negative S4, No murmur
Lungs: CTA b/l, negative wheezes/rales/rhonchi
Abd: Positive BS, NT/ND, neg rebound/rigidity/guarding
Ext: Negative cyanosis/clubbing/edema
Neuro: nonfocal
--- NOTE | 2024-05-06 09:43 | ITS.CL.CARDI ---
Account Retention Representative - Cardioversion
Cardioversion
Procedure Report:
Date of Procedure: May 06 2024
Procedure: Cardioversion
Indication: Symptomatic atrial fibrillation
Performing Physician: Bear Graham DO, FACC
Technique: The patient was brought to the holding area. Signed informed consent was obtained. A time out was called and performed. The patient was anesthetized by the anesthesia service.She underwent successful STEVEN. Anticoagulation status was
reviewed and appropriate. R2 pads were placed anteriorly and posteriorly. A 200 J synchronized biphasic shock restored normal sinus rhythm without significant bradycardia. There were no complications.
Conclusion: Uncomplicated cardioversion from atrial fibrillation to sinus rhythm.
Recommendation: Routine post cardioversion care. Continue assistant terminal manager anticoagulation.
--- NOTE | 2024-05-06 10:03 | PTCARENOTE ---
Assumed care of pt upon tsf from CCL post CV. Pt arrives in SB 50's. Pt offers no c/o pain or discomfort. Will continue to monitor closely.
[2024-05-06] MEDS: FEOSOL 325 MG PO (10:09)
[2024-05-06] MEDS: MUCINEX 1200 MG PO (10:09)
[2024-05-06] MEDS: GLUCOPHAGE 850 MG PO (10:10)
[2024-05-06] MEDS: LASIX 40 MG IV ×2 (10:10→15:55)
[2024-05-06 11:37] LABS: Glucose - Point of Care 128 mg/dl (70-99)
--- NOTE | 2024-05-06 12:40 | PN.CDI ---
CDI
- -
CDI:
Physician Documentation Request
Admit Date: 05/03/24 16:23
Dear Doctor Khoa,
ED record states patient presented due to shortness of breath and weakness. 'She has been using oxygen since her last admission'
History of COPD.
Cardiology notes state 'Chronic hypoxia recently placed on 2L home O2'
Please clarify the patient's respiratory status:
Chronic respiratory failure requiring continuous home O2
Hypoxia requiring intermittent home o2 use
Other
Use of terms such as suspected, likely, concern for, or probable (associated with a specific diagnosis that is being evaluated, monitored, or treated as if it exists) are acceptable and can be coded in the inpatient setting, when documented at the
time of discharge.
Thank you,
Edwina Najera RN, BSN
CDI Specialist
tiger text
Please use your independent medical judgment in providing your response.
--- NOTE | 2024-05-06 12:48 | PN.CDI ---
CDI
- -
CDI:
Physician Documentation Request
Admit Date: 05/03/24 16:23
Dear Doctor Khoa,
Patient presented to ED with shortness of breath and weakness.
Hospitalist progress noes state 'acute on chronic CHF with preserved EF...likely exacerbated by A fib with RVR'
Cardiology progress note states 'Atrial fibrillation with rapid ventricular response, new dx last admit'
05/06 Patient underwent cardioversion
Please provide further specificity regarding atrial fibrillation:
Paroxysmal atrial fibrillation - terminates spontaneously or with intervention within 7 days of onset
Persistent atrial fibrillation - episodes of continuous AF that last more than 7 days and do not self-terminate
Other - please specify
Use of terms such as suspected, likely, concern for, or probable (associated with a specific diagnosis that is being evaluated, monitored, or treated as if it exists) are acceptable and can be coded in the inpatient setting, when documented at the
time of discharge.
Thank you,
Edwina Najera RN, BSN
CDI Specialist
tiger text
Please use your independent medical judgment in providing your response.
--- NOTE | 2024-05-06 12:50 | W.PN.HOSP.TC ---
Today's Communication/Plan
-
Monitor vital signs see plan
Status post cardioversion today
Continue with IV Lasix
Plan for VSE tomorrow
pt/ot
Assessment / Plan
Assessment / Plan
Gen: NAD, AAOx3.
Eyes: EOMI, PERRLA, no scleral icterus.
Neck: supple.
CV: tachy, irreg/irreg, +S1/S2, no m/r/g.
Resp: B/L rales, greatest in the bases
Abd: +BS, soft, NT, ND
Skin: No rashes. 1-2+ B/L LE edema
Neuro: CN 2-12 intact, non-focal.
Psych: Normal mood and affect.
CXR: Left basilar opacity again seen in comparison to recent prior study, most likely representing subsegmental atelectasis and small left pleural effusion. Cannot exclude left basilar pneumonia.
Afib with RVR:
Now off Cardizem
Now started on amiodarone
-cont Eliquis
-cont Lasix 40mg IV
-cards following
Status post cardioversion 05/06, now in normal sinus rhythm
Acute on chronic CHF with preserved EF
Continue with IV Lasix
Likely exacerbated by A-fib with RVR
h/o squamous cell right tonsil, s/p radiation
Due to dry throat, problems with eating dry food
Consult speech, plan for VSE 05/07
Hypomagnesemia
replete
Hypothyroidism:
-started Levoxyl 25mcg daily
-recheck TFTs in 4 weeks
Other problems:
Elevated LFTs, chronic
COPD, not in acute exacerbation: Albuterol PRN
Essential hypertension: cont Cardziem
DM2: cont Metformin/SSI/accuchecks
Sjogren's syndrome
Psoriasis
Glaucoma: Continue Alphagan and Xalatan drops
h/o squamous cell right tonsil, s/p radiation
Major Depressive Disorder/anxiety: Ativan PRN
h/o Pulmonary Hypertension
Restless Leg Syndrome: cont Requip
Iron deficiency anemia: cont Ferrous Sulfate
FULL/Eliquis
Total time spent on today's encounter was 52 minutes which included time spent in counseling the patient/family regarding diagnosis and treatment plan as listed above, goals of care, and symptom management. Case was discussed with nursing staff,
specialists, and care coordinators/case management. All labs and imaging personally reviewed by me. Remainder the time spent in detailed review of previous records, lab data, imaging, and other medical provider documentation.
Anticipated Discharge: 24 - 48 hours
Subjective/Interval History
-
Date of Service: May 06, 2024
Denies chest pain
Objective Data
-
Labs:
Laboratory Results
05/06/24
04:45
WBC 3.2 L
Hgb 10.8 L
Hct 35.2 L
Plt Count 144
Sodium 135
Potassium 4.0
Chloride 91 L
Carbon Dioxide 34 H
BUN 14
Creatinine 0.7
Glucose 121 H
Calcium 8.8
Total Bilirubin 0.6
AST 48 H
ALT 32
Alkaline Phosphatase 150 H
Vital Signs:
Vital Signs
Temp Pulse Resp BP Pulse Ox
97.5 F 69 16 121/51 98
05/06/24 11:36 05/06/24 11:45 05/06/24 11:36 05/06/24 11:33 05/06/24 11:36
I&O
05/05/24 05/06/24 05/07/24
06:59 06:59 06:59
Intake Total 1235 / 1235
Output Total 1550 / 1550 800 / 800
Balance -315 / -315 -800 / -800
[2024-05-06 16:38] LABS: Glucose - Point of Care 180 mg/dl (70-99)
[2024-05-06] MEDS: NOVOLOG FLEXPEN-LOW RESISTANCE 1 UNITS SC (16:39)
--- NOTE | 2024-05-06 21:18 | PTCARENOTE ---
Pt received start of shift, HR SR. Pt appears in much better mood following successful CV. Pt ambulating to bedside commode, voiding clear yellow urine. Updated pt on plan of care, pt states understanding. Call carrizales within reach.
[2024-05-06 22:14] LABS: Glucose - Point of Care 140 mg/dl (70-99)
[2024-05-06] MEDS: ATIVAN 0.5 MG PO (22:50)
[2024-05-06] MEDS: XALATAN OPHTHALMIC SOLUTION 1 DROP BOTH EYES (22:50)
[2024-05-07] VITALS (10 sets, daily range): BP systolic 81–156; BP diastolic 54–80; BMI 25.3
[2024-05-07 04:06] LABS: % Basophils 0.9 % (0-2); % Eosinophils 3.6 % (0-6); % Lymphocytes 19.7 % (20.5-51.1); % Monocytes 13.6 % (1.7-9.3); % Neutrophils 62.2 % (42.2-75.2); Absolute Eosinophils 0.1 10^3/uL (0-0.7); Absolute Lymphocytes 0.7 10^3/uL (1.2-3.4); Absolute Monocytes 0.5 10^3/uL (0.1-0.6); Absolute Neutrophils 2.1 10^3/uL (1.4-6.5); Mean Corp Hgb Conc. 30.6 g/dL (33.0-37.0); Mean Corpuscular Hgb 26.1 pg (27.0-31.0); Mean Corpuscular Volume 85.3 fL (81.0-99.0); Mean Platelet Volume 10.1 fL (7.4-10.4); Nucleated Red Blood Cells % 0 %; Platelet Count 136 10^3/uL (130-400); Red Blood Cell Count 4.22 10^6/uL (4.20-5.40); Red Cell Dist. Width 17.5 % (11.5-14.5); White Blood Cell Count 3.3 10^3/uL (4.8-10.8)
[2024-05-07 04:29] LABS: Blood Urea Nitrogen 15 mg/dl (7-17); Calcium 8.9 mg/dl (8.4-10.2); Chloride 91 mmol/L (98-107); Estimated Creatinine Clearance 56 ml/min; Glucose 131 mg/dl (70-99); Potassium 4.9 mmol/L (3.5-5.1); Sodium 136 mmol/L (135-145); eGFR > 60.00
[2024-05-07 04:40] LABS: Carbon Dioxide 39 mmol/L (22-30)
[2024-05-07] MEDS: SYNTHROID 25 MCG PO (06:17)
[2024-05-07 07:08] LABS: Glucose - Point of Care 120 mg/dl (70-99)
--- NOTE | 2024-05-07 09:00 | PTCARENOTE ---
sent for video swallow via stretcher. walked with walker. did well. seems slightly confused about certain things. her medications and eye drops. convinved they havnt been being given to her. emotional support provided. daughter at bedside during
this conversation. Remains NSR. HR 80s.
[2024-05-07] MEDS: NOVOLOG FLEXPEN-LOW RESISTANCE SC (09:38)
[2024-05-07] MEDS: MUCINEX 1200 MG PO (09:38)
[2024-05-07] MEDS: PACERONE 200 MG PO ×2 (09:39→19:02)
[2024-05-07] MEDS: REQUIP 0.25 MG PO ×3 (09:39→22:03)
[2024-05-07] MEDS: GLUCOPHAGE 850 MG PO (09:39)
[2024-05-07] MEDS: FEOSOL 325 MG PO (09:39)
[2024-05-07] MEDS: ELIQUIS 5 MG PO ×2 (09:40→19:55)
[2024-05-07] MEDS: LASIX 40 MG IV ×2 (09:40→16:13)
[2024-05-07] MEDS: ALPHAGAN P 0.15% EYE DROPS 1 DROP BOTH EYES ×2 (09:40→19:55)
--- NOTE | 2024-05-07 10:00 | PTOTSP ---
Speech Language Pathology
VIDEOFLUOROSCOPIC SWALLOWING EXAMINATION (VSE) completed. Overall, pt with mild pharyngeal dysphagia. Penetration noted with thin liquids, which cleared with a cued throat clear/reswallow. No aspiration or significant pharyngeal residue noted.
Suspect symptoms largely related to decreased distention of pharyngoesophageal segment (PES) and esophageal etiology, especially given Sjogren's dx.
Recommend:
(1) Continue regular solids/thin liquids
(2) Aspiration precautions: sit upright, slow rate, intermittent throat clear/reswallow, moisten dry foods, alternate solids and liquids
(3) Meds as tolerated
(4) VAULT MANAGER to sign off. Please reconsult as indicated.
[2024-05-07 11:49] LABS: Glucose - Point of Care 199 mg/dl (70-99)
[2024-05-07] MEDS: NOVOLOG FLEXPEN-LOW RESISTANCE 1 UNITS SC ×2 (11:49→16:56)
--- NOTE | 2024-05-07 12:27 | W.PN.CARDCBS ---
Addendum entered and electronically signed by Dileep Vidales MD 05/07/24 15:05:
I saw and examined the patient.
The SALES REPRESENTATIVE ELECTRIC SERVICE or PA's note was reviewed and I agree with the note.
Comment: General: Well developed, well nourished in NAD.
Neck: Supple, no JVD, HJR, carotids +2 B/L, no bruits bilaterally.
Heart: Non displaced PMI, RRR, no murmurs, No S3, S4, no rubs.
Lungs: Scattered rhonchi
Extremities: Mild edema bilaterally.
Neuro: Grossly nonfocal, awake, alert and oriented x3.
She remains in sinus rhythm. There are brief episodes of nonsustained V. tach. Will continue amiodarone. No beta-birdie with COPD. Daughter is concerned about edema. There is no obvious CHF but will add IV Lasix while she is hospitalized
awaiting halfway facility bed on 05/09. Discussed with daughter in detail at bedside.
Addendum entered and electronically signed by Jenny Fierro PA-C 05/07/24 14:15:
also with brief NSVT on review of tele overnight. K 4.9. mag 1.8. would consider addition of low dose BB if no contraindication - of note, does have COPD.
Original Note:
Today's Communication / Plan
-
remains in SR
continue amiodarone, eliquis
60mg IV lasix this afternoon
wean supp O2, home O2 eval
Impression / Plan
-
.
Construction Materials Tester: Dr. Graham
Impression:
Acute HFpEF
Atrial fibrillation with rapid ventricular response, new dx last admit, s/p STEVEN/CV 05/06/24
COPD on home O2
Chronic hypoxia recently placed on 2L home O2
Mild mitral stenosis with moderate aortic stenosis from echo April 2024
Hypertension
Dyslipidemia
Type 2 diabetes mellitus
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
Microcytic anemia
History of Sjogren's
Echo 08/09/2023: EF 50-55%, mild MR, mild MS, mod with peak/mean gradients 57/34 mmHg, trace AI
Echo 04/28/2024: EF 55-60%, mild conc LVH, normal RV size and function, mild MS peak/mean 17/8 mmHg, mod with peak/mean 54/30 mmHg, mild to mod TR with PAP 48 mmHg
Plan:
-Weight remains relatively flat. Down 3 pounds from admission if accurate. She and daughter both report her right lower extremity remains with significant edema. Will place Tubigrip stockings. Will give additional 20 mg of IV Lasix with 40 mg IV
afternoon dose today and assess response
-Creatinine stable at 0.5
-Peripheral ultrasound earlier in admission negative for DVT
-Follow LFTs, repeat in a.m.
-Remains in sinus rhythm status post STEVEN/cardioversion 05/06. Continue amiodarone 200 mg twice daily for 2 weeks then decrease to 200 mg daily
-Outpatient Cardizem stopped given bradycardia post cardioversion
-She had been scheduled for outpatient echo 05/29, which we have canceled. She had stable moderate by echo 04/28/2024.
-Wean O2 as able and assess for home O2 prior to discharge
-Follow thyroid function tests. May require additional adjustment in Synthroid dosing as on amiodarone
-Discussed with nursing. Discussed with patient and daughter at bedside
HPI: Zoya is a pleasant 83-year-old female who follows routinely with my colleague Dr. Graham recently seen April 22. She has a past medical history of COPD, hypertension, diabetes, sjogrens syndrome, psoriasis, history of squamous cell right
tonsil cancer status post radiation with mild mitral stenosis with a mean transit mitral gradient of 6 mmHg and moderate aortic stenosis with peak/mean transaortic gradients 57/34 mmHg with low normal LV ejection fraction estimated 50-55% based on
echocardiogram in August 2023. She has had progressive shortness of breath which has required increased doses of Lasix. She is also recently been seen by pulmonary and was recently put on home O2 within the last week. When last seen she was
taking Lasix 20 mg once daily and her weight was 177 pounds. At the time of her office visit no change was made to her Lasix but she was requested to have a repeat echocardiogram to reassess aortic valve disease. She presents to [place]
[facility] with acute worsening of shortness of breath of the last several days. She denies URI signs or symptoms or fevers. She denies cough.
Progress Note - Construction Materials Tester
Subjective
Date of Service: May 07, 2024
Reports remains with right lower extremity edema
Objective
Labs:
05/07/24 03:47
05/07/24 03:47
Labs
Hgb 11.0 g/dL (12.0-16.0) L 05/07/24 03:47
Hct 36.0 % (37.0-47.0) L 05/07/24 03:47
Plt Count 136 10^3/uL (130-400) 05/07/24 03:47
Sodium 136 mmol/L (135-145) 05/07/24 03:47
Potassium 4.9 mmol/L (3.5-5.1) 05/07/24 03:47
BUN 15 mg/dl (7-17) 05/07/24 03:47
Creatinine 0.8 mg/dL (0.6-1.0) 05/07/24 03:47
Glucose 131 mg/dl (70-99) H 05/07/24 03:47
Vital Signs and I&O:
Vital Signs
Temp Pulse Resp BP Pulse Ox
97.6 F 72 18 116/70 95
05/07/24 12:00 05/07/24 03:45 05/07/24 12:00 05/07/24 03:38 05/07/24 12:00
Vital Signs
Temp Pulse Resp BP Pulse Ox
97.6 F 72 18 116/70 95
05/07/24 12:00 05/07/24 03:45 05/07/24 12:00 05/07/24 03:38 05/07/24 12:00
Intake & Output
05/05/24 05/06/24 05/07/24 05/08/24
07:59 07:59 07:59 07:59
Intake Total 1235 / 1235 720 / 720
Output Total 1550 / 1550 800 / 800 1450 / 1450
Balance -315 / -315 -800 / -800 -730 / -730
Physical Exam
Physical Exam
GEN: No distress, awake, alert, oriented x3. on supp O2
HEENT: supple, anicteric, mmm, eomi
LUNGS: Few crackles at bases, no wheezes
CV: Reg, S1/S2, 2/6 syst LSB
ABD: soft, BS+, NT/ND
EXT: No cyanosis, clubbing. 1+ edema of RLE, trace ankle edema of LLE
NEURO: Gross non-focal
SKIN: Warm, pink, dry. No rash
--- NOTE | 2024-05-07 12:29 | W.PN.HOSP.TC ---
Today's Communication/Plan
-
Monitor vital signs and see plan
Wean oxygen as tolerated
Continue with IV Lasix
Will need SNF on discharge
Continue Amio
Daughter updated at bedside
Assessment / Plan
Assessment / Plan
Gen: NAD, AAOx3.
Eyes: EOMI, PERRLA, no scleral icterus.
Neck: supple.
CV: tachy, irreg/irreg, +S1/S2, no m/r/g.
Resp: B/L rales, greatest in the bases
Abd: +BS, soft, NT, ND
Skin: No rashes. 1-2+ B/L LE edema
Neuro: CN 2-12 intact, non-focal.
Psych: Normal mood and affect.
CXR: Left basilar opacity again seen in comparison to recent prior study, most likely representing subsegmental atelectasis and small left pleural effusion. Cannot exclude left basilar pneumonia.
Paroxysmal Afib
admitted with afib with RVR
Now off Cardizem
Now started on amiodarone
-cont Eliquis
-cont IV lasix
-cards following
Status post cardioversion 05/06, now in normal sinus rhythm
Acute on chronic CHF with preserved EF
Continue with IV Lasix
Likely exacerbated by A-fib with RVR
Chronic hypoxic respiratory insufficiency, only on nocturnal o2 and PRN at home
monitor o2; wean o2 as tolerated
h/o squamous cell right tonsil, s/p radiation
Due to dry throat, problems with eating dry food
Speech following, VSE 05/07 noted. Suspect secondary to Sjogren's
Hypomagnesemia
replete
Hypothyroidism:
-started Levoxyl 25mcg daily
-recheck TFTs in 4 weeks
Other problems:
Elevated LFTs, chronic
COPD, not in acute exacerbation: Albuterol PRN
Essential hypertension: cont Cardziem
DM2: cont Metformin/SSI/accuchecks
Sjogren's syndrome
Psoriasis
Glaucoma: Continue Alphagan and Xalatan drops
h/o squamous cell right tonsil, s/p radiation
Major Depressive Disorder/anxiety: Ativan PRN
h/o Pulmonary Hypertension
Restless Leg Syndrome: cont Requip
Iron deficiency anemia: cont Ferrous Sulfate
FULL/Eliquis
Total time spent on today's encounter was 53 minutes which included time spent in counseling the patient/family regarding diagnosis and treatment plan as listed above, goals of care, and symptom management. Case was discussed with nursing staff,
specialists, and care coordinators/case management. All labs and imaging personally reviewed by me. Remainder the time spent in detailed review of previous records, lab data, imaging, and other medical provider documentation.
Anticipated Discharge: 24 - 48 hours
Subjective/Interval History
-
Date of Service: May 07, 2024
denies pain
Objective Data
-
Labs:
Laboratory Results
05/07/24
03:47
WBC 3.3 L
Hgb 11.0 L
Hct 36.0 L
Plt Count 136
Sodium 136
Potassium 4.9
Chloride 91 L
Carbon Dioxide 39 H
BUN 15
Creatinine 0.8
Glucose 131 H
Calcium 8.9
Vital Signs:
Vital Signs
Temp Pulse Resp BP Pulse Ox
97.6 F 72 18 116/70 95
05/07/24 12:00 05/07/24 03:45 05/07/24 12:00 05/07/24 03:38 05/07/24 12:00
I&O
05/06/24 05/07/24 05/08/24
06:59 06:59 06:59
Intake Total 720 / 720
Output Total 800 / 800 1250 / 1250 200 / 200
Balance -800 / -800 -530 / -530 -200 / -200
--- NOTE | 2024-05-07 12:31 | CM ---
CM following for DC planning needs.
Met w/ patient and dtr. Margarito at bedside.
Reviewed DC plan for SNF. Preference is for [facility] SNF. Referral made, accepted.
Plan for transfer on Sun, if stable.
Will need insurance authorization thru [employer]. Discussed this w/ patient/dtr. Pt. concerned w/ insurance co pay, insurance co pay for hospitalization. Offered reassurance.
Plan: SNF @ (goal) [facility]
Authorization required
[2024-05-07 13:10] LABS: Magnesium 1.8 mg/dl (1.6-2.3)
[2024-05-07] MEDS: LASIX 20 MG IV (16:13)
[2024-05-07 16:19] LABS: Glucose - Point of Care 156 mg/dl (70-99)
--- NOTE | 2024-05-07 17:36 | PTCARENOTE ---
tubagrips applied to both legs. IV lasix x 2nd dose given.
[2024-05-07] MEDS: CARDIZEM 5 MG IV (19:02)
[2024-05-07] MEDS: MAGNESIUM SULFATE 102 GRAMS IV ×2 (19:23→22:58)
--- NOTE | 2024-05-07 19:24 | PTCARENOTE ---
1838 - rapid afib. HR 140s. asymptomatic. orders received from Dr Couch for mag gtt and cardizem push. will continue ot monitor.VSS
[2024-05-07 21:20] LABS: Blood Urea Nitrogen 14 mg/dl (7-17); Calcium 8.9 mg/dl (8.4-10.2); Chloride 89 mmol/L (98-107); Estimated Creatinine Clearance 64 ml/min; Glucose 138 mg/dl (70-99); Magnesium 1.9 mg/dl (1.6-2.3); Potassium 4.2 mmol/L (3.5-5.1); Sodium 135 mmol/L (135-145); eGFR > 60.00
[2024-05-07 21:30] LABS: Carbon Dioxide 36 mmol/L (22-30)
[2024-05-07] MEDS: CARDIZEM 125 IV (22:02)
[2024-05-07] MEDS: XALATAN OPHTHALMIC SOLUTION 1 DROP BOTH EYES (22:03)
--- NOTE | 2024-05-07 22:10 | W.PN.UPDATE ---
Update Note
Progress Note Update
-tele was alarming VT, hr 130s-140s. Pt is completely asymptomatic and not aware of palpitations, denies any SOB. Reviewed tele and ECG - appears to be back in a-flutter with LBBB aberrancy (not VT). EF nl 55-60%. She had DCCV on 05/06. Reviewed ECG
with Dr Ly as well- will start iv Cardizem for rate control. She is already on Eliquis.
[2024-05-07 22:32] LABS: Glucose - Point of Care 136 mg/dl (70-99)
[2024-05-08] VITALS (27 sets, daily range): BP systolic 93–123; BP diastolic 44–85; PULSE 110
--- NOTE | 2024-05-08 00:52 | PTCARENOTE ---
Remains in a-FIB
--- NOTE | 2024-05-08 00:53 | PTCARENOTE ---
Cardizem drip currently at 10 mg/hr. Denied any complaints of pain or discomfort tonight. Sleeping at present.
[2024-05-08] MEDS: SYNTHROID 25 MCG PO (04:16)
[2024-05-08 05:01] LABS: % Basophils 0.6 % (0-2); % Eosinophils 1.2 % (0-6); % Immature Granulocytes 0.4 % (0-0.5); % Lymphocytes 15.3 % (20.5-51.1); % Neutrophils 70.5 % (42.2-75.2); Absolute Eosinophils 0.1 10^3/uL (0-0.7); Absolute Lymphocytes 0.8 10^3/uL (1.2-3.4); Absolute Monocytes 0.6 10^3/uL (0.1-0.6); Absolute Neutrophils 3.6 10^3/uL (1.4-6.5); Hematocrit 37.8 % (37.0-47.0); Hemoglobin 11.3 g/dL (12.0-16.0); Mean Corp Hgb Conc. 29.9 g/dL (33.0-37.0); Mean Corpuscular Hgb 25.7 pg (27.0-31.0); Mean Corpuscular Volume 85.9 fL (81.0-99.0); Mean Platelet Volume 10.7 fL (7.4-10.4); Nucleated Red Blood Cells % 0 %; Platelet Count 160 10^3/uL (130-400); Red Cell Dist. Width 17.6 % (11.5-14.5); White Blood Cell Count 5.1 10^3/uL (4.8-10.8)
[2024-05-08 06:25] LABS: Blood Urea Nitrogen 13 mg/dl (7-17); Calcium 8.9 mg/dl (8.4-10.2); Chloride 90 mmol/L (98-107); Estimated Creatinine Clearance 74 ml/min; Glucose 150 mg/dl (70-99); Potassium 4.4 mmol/L (3.5-5.1); Sodium 135 mmol/L (135-145); eGFR > 60.00
[2024-05-08 06:34] LABS: Carbon Dioxide 39 mmol/L (22-30)
[2024-05-08 06:53] LABS: Glucose - Point of Care 155 mg/dl (70-99)
[2024-05-08] MEDS: FEOSOL 325 MG PO (07:57)
[2024-05-08] MEDS: PACERONE 200 MG PO ×2 (07:57→11:36)
[2024-05-08] MEDS: REQUIP 0.25 MG PO ×3 (07:57→22:25)
[2024-05-08] MEDS: MUCINEX 1200 MG PO (07:57)
[2024-05-08] MEDS: ELIQUIS 5 MG PO ×2 (07:58→19:59)
[2024-05-08] MEDS: LASIX 40 MG IV ×2 (07:58→15:35)
[2024-05-08] MEDS: CARDIZEM 125 IV ×2 (08:00→15:51)
[2024-05-08] MEDS: NOVOLOG FLEXPEN-LOW RESISTANCE 1 UNITS SC ×3 (08:14→17:07)
[2024-05-08] MEDS: GLUCOPHAGE 850 MG PO (08:14)
[2024-05-08] MEDS: ALPHAGAN P 0.15% EYE DROPS 1 DROP BOTH EYES ×2 (08:16→19:58)
--- NOTE | 2024-05-08 10:25 | W.PN.CARDCBS ---
Today's Communication / Plan
-
She is back in A-fib
Will increase amiodarone to 400 mg p.o. 3 times daily loading dose, continue IV Cardizem and restart outpatient oral Cardizem
Consider cardioversion on 05/09 if remains poorly controlled in A-fib but likely would be better served with doing cardioversion as an outpatient after 3 to 4 weeks of amiodarone loading
Continue IV Lasix and consider change to oral Lasix in next 24 hours
Okay to rehab on 05/09 if heart rate control in A-fib is reasonable
Impression / Plan
-
.
Hot Stick Worker: Dr. Graham
Impression:
Acute HFpEF
Atrial fibrillation with rapid ventricular response, new dx last admit, s/p STEVEN/CV 05/06/24
SVT with aberrancy versus nonsustained V. tach
COPD on home O2
Chronic hypoxia recently placed on 2L home O2
Mild mitral stenosis with moderate aortic stenosis from echo April 2024
Hypertension
Dyslipidemia
Type 2 diabetes mellitus
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
Microcytic anemia
History of Sjogren's
Echo 08/09/2023: EF 50-55%, mild MR, mild MS, mod with peak/mean gradients 57/34 mmHg, trace AI
Echo 04/28/2024: EF 55-60%, mild conc LVH, normal RV size and function, mild MS peak/mean 17/8 mmHg, mod with peak/mean 54/30 mmHg, mild to mod TR with PAP 48 mmHg
Plan:
She has gone back into atrial fibrillation after having STEVEN cardioversion on 05/06/2024
Heart rate control suboptimal but reasonable at present on IV Cardizem
Will increase amiodarone to 400 mg p.o. 3 times daily loading dose -will need to watch LFTs with increasing amiodarone dosing
Will add Cardizem p.o. and continue IV Cardizem for now with plans to discontinue IV Cardizem in the next 24 hours -of note outpatient Cardizem was held status post cardioversion
If heart rate control remains suboptimal could consider repeat cardioversion on 05/09 but chance of remaining in sinus rhythm may be low as would need more amiodarone loading.
Could consider outpatient cardioversion after patient has been on amiodarone for 3 to 4 weeks
Follow thyroid function tests. May require additional adjustment in Synthroid dosing as on amiodarone
Plan is to go to rehab on 05/09 which should be okay if heart rate control remains reasonable
Discussed with patient, son, and daughter at bedside
Total visit time 51 mins
HPI: Zoya is a pleasant 83-year-old female who follows routinely with my colleague Dr. Graham recently seen April 22. She has a past medical history of COPD, hypertension, diabetes, sjogrens syndrome, psoriasis, history of squamous cell right
tonsil cancer status post radiation with mild mitral stenosis with a mean transit mitral gradient of 6 mmHg and moderate aortic stenosis with peak/mean transaortic gradients 57/34 mmHg with low normal LV ejection fraction estimated 50-55% based on
echocardiogram in August 2023. She has had progressive shortness of breath which has required increased doses of Lasix. She is also recently been seen by pulmonary and was recently put on home O2 within the last week. When last seen she was
taking Lasix 20 mg once daily and her weight was 177 pounds. At the time of her office visit no change was made to her Lasix but she was requested to have a repeat echocardiogram to reassess aortic valve disease. She presents to [place]
[facility] with acute worsening of shortness of breath of the last several days. She denies URI signs or symptoms or fevers. She denies cough.
Progress Note - Hot Stick Worker
Subjective
Date of Service: May 08, 2024
No complaints. Went back in atrial fibrillation. Cardizem drip has been started
Objective
Labs:
05/08/24 04:37
05/08/24 05:42
Labs
Hgb 11.3 g/dL (12.0-16.0) L 05/08/24 04:37
Hct 37.8 % (37.0-47.0) 05/08/24 04:37
Plt Count 160 10^3/uL (130-400) 05/08/24 04:37
Sodium 135 mmol/L (135-145) 05/08/24 05:42
Potassium 4.4 mmol/L (3.5-5.1) 05/08/24 05:42
BUN 13 mg/dl (7-17) 05/08/24 05:42
Creatinine 0.6 mg/dL (0.6-1.0) 05/08/24 05:42
Glucose 150 mg/dl (70-99) H 05/08/24 05:42
Vital Signs and I&O:
Vital Signs
Temp Pulse Resp BP Pulse Ox
99.3 F 97 20 112/48 94
05/08/24 06:49 05/08/24 10:00 05/08/24 06:49 05/08/24 10:00 05/08/24 07:10
Vital Signs
Temp Pulse Resp BP Pulse Ox
99.3 F 97 20 112/48 94
05/08/24 06:49 05/08/24 10:00 05/08/24 06:49 05/08/24 10:00 05/08/24 07:10
Intake & Output
05/06/24 05/07/24 05/08/24 05/09/24
06:59 06:59 06:59 06:59
Intake Total 720 / 720 442 / 442 480 / 480
Output Total 800 / 800 1250 / 1250 2325 / 2325
Balance -800 / -800 -530 / -530 -1883 / -1883 480 / 480
Physical Exam
Physical Exam
General: Well developed, well nourished in NAD.
Neck: Supple, no JVD, HJR, carotids +2 B/L, no bruits bilaterally.
Heart: Non displaced PMI, irregular, no murmurs, No S3, S4, no rubs.
Lungs: Scattered rhonchi
Extremities: Mild lower extremity edema bilaterally.
Neuro: Grossly nonfocal, awake, alert and oriented x3.
[2024-05-08] MEDS: CARDIZEM CD 120 MG PO (11:55)
[2024-05-08 11:57] LABS: Glucose - Point of Care 176 mg/dl (70-99)
--- NOTE | 2024-05-08 12:15 | W.PN.HOSP.TC ---
Today's Communication/Plan
-
Monitor vital signs and see plan
Continue with IV Lasix
Amiodarone
Continue diltiazem drip
PT/OT
Assessment / Plan
Assessment / Plan
Gen: NAD, AAOx3.
Eyes: EOMI, PERRLA, no scleral icterus.
Neck: supple.
CV: tachy, irreg/irreg, +S1/S2, no m/r/g.
Resp: B/L rales, greatest in the bases
Abd: +BS, soft, NT, ND
Skin: No rashes. 1-2+ B/L LE edema
Neuro: CN 2-12 intact, non-focal.
Psych: Normal mood and affect.
CXR: Left basilar opacity again seen in comparison to recent prior study, most likely representing subsegmental atelectasis and small left pleural effusion. Cannot exclude left basilar pneumonia.
Paroxysmal Afib
admitted with afib with RVR
on amiodarone
-cont Eliquis
-cont IV lasix
-cards following
Status post cardioversion 05/06, now back in A-fib with RVR. On Cardizem drip
Acute on chronic CHF with preserved EF
Continue with IV Lasix
Likely exacerbated by A-fib with RVR
Chronic hypoxic respiratory insufficiency, only on nocturnal o2 and PRN at home
monitor o2; wean o2 as tolerated
h/o squamous cell right tonsil, s/p radiation
Due to dry throat, problems with eating dry food
Speech following, VSE 05/07 noted. Suspect secondary to Sjogren's
Hypomagnesemia
replete
Hypothyroidism:
-started Levoxyl 25mcg daily
-recheck TFTs in 4 weeks
Other problems:
Elevated LFTs, chronic
COPD, not in acute exacerbation: Albuterol PRN
Essential hypertension: cont Cardziem
DM2: cont Metformin/SSI/accuchecks
Sjogren's syndrome
Psoriasis
Glaucoma: Continue Alphagan and Xalatan drops
h/o squamous cell right tonsil, s/p radiation
Major Depressive Disorder/anxiety: Ativan PRN
h/o Pulmonary Hypertension
Restless Leg Syndrome: cont Requip
Iron deficiency anemia: cont Ferrous Sulfate
FULL/Eliquis
Total time spent on today's encounter was 51 minutes which included time spent in counseling the patient/family regarding diagnosis and treatment plan as listed above, goals of care, and symptom management. Case was discussed with nursing staff,
specialists, and care coordinators/case management. All labs and imaging personally reviewed by me. Remainder the time spent in detailed review of previous records, lab data, imaging, and other medical provider documentation.
Anticipated Discharge: 24 - 48 hours
Subjective/Interval History
-
Date of Service: May 08, 2024
Denies chest pain
Objective Data
-
Labs:
Laboratory Results
05/08/24 05/08/24
04:37 05:42
WBC 5.1
Hgb 11.3 L
Hct 37.8
Plt Count 160
Sodium Cancelled 135
Potassium Cancelled 4.4
Chloride Cancelled 90 L
Carbon Dioxide Cancelled 39 H
BUN Cancelled 13
Creatinine Cancelled 0.6
Glucose Cancelled 150 H
Calcium Cancelled 8.9
Vital Signs:
Vital Signs
Temp Pulse Resp BP Pulse Ox
97.6 F 87 18 112/67 94
05/08/24 12:10 05/08/24 12:00 05/08/24 12:10 05/08/24 12:00 05/08/24 12:10
I&O
05/07/24 05/08/24 05/09/24
06:59 06:59 06:59
Intake Total 720 / 720 442 / 442 480 / 480
Output Total 1250 / 1250 2325 / 2325
Balance -530 / -530 -1883 / -1883 480 / 480
[2024-05-08] MEDS: PACERONE 400 MG PO ×2 (15:35→22:25)
[2024-05-08 17:08] LABS: Glucose - Point of Care 151 mg/dl (70-99)
--- NOTE | 2024-05-08 17:54 | PTCARENOTE ---
pt continues to be afib on the monitor, hr in the 90s, vss. pt offers no complaints at this time. Cardizem gtt running per protocol, see documentation. pt educated on plan of care and pt verbalized understanding. call carrizales within reach.
[2024-05-08 22:21] LABS: Glucose - Point of Care 175 mg/dl (70-99)
[2024-05-08] MEDS: XALATAN OPHTHALMIC SOLUTION 1 DROP BOTH EYES (22:26)
[2024-05-09] VITALS (20 sets, daily range): BP systolic 90–125; BP diastolic 50–95; BMI 25.2
--- NOTE | 2024-05-09 00:56 | PTCARENOTE ---
Patient denied any complaints of pain or discomfort. Remains in a-fib in the 60-70's at present. Cardizem drip infusing at 5ml/hr at present. Sleeping most of the nite.
[2024-05-09] MEDS: CARDIZEM 125 IV (02:07)
[2024-05-09] MEDS: SYNTHROID 25 MCG PO (04:51)
[2024-05-09 05:09] LABS: % Basophils 0.8 % (0-2); % Eosinophils 3.3 % (0-6); % Immature Granulocytes 0.3 % (0-0.5); % Lymphocytes 18.4 % (20.5-51.1); % Monocytes 13.6 % (1.7-9.3); % Neutrophils 63.6 % (42.2-75.2); Absolute Eosinophils 0.1 10^3/uL (0-0.7); Absolute Lymphocytes 0.7 10^3/uL (1.2-3.4); Absolute Monocytes 0.5 10^3/uL (0.1-0.6); Absolute Neutrophils 2.5 10^3/uL (1.4-6.5); Hematocrit 36.2 % (37.0-47.0); Hemoglobin 11.3 g/dL (12.0-16.0); Mean Corp Hgb Conc. 31.2 g/dL (33.0-37.0); Mean Corpuscular Hgb 26.2 pg (27.0-31.0); Nucleated Red Blood Cells % 0 %; Platelet Count 144 10^3/uL (130-400); Red Blood Cell Count 4.31 10^6/uL (4.20-5.40); Red Cell Dist. Width 17.8 % (11.5-14.5); White Blood Cell Count 3.9 10^3/uL (4.8-10.8)
[2024-05-09 06:15] LABS: ALT (SGPT) 49 U/L (0-35); AST (SGOT) 63 U/L (14-36); Albumin 3.8 g/dl (3.5-5.0); Alkaline Phosphatase 207 U/L (38-126); Blood Urea Nitrogen 13 mg/dl (7-17); Calcium 9.1 mg/dl (8.4-10.2); Chloride 89 mmol/L (98-107); Direct Bilirubin 0.2 mg/dl (0.0-0.4); Estimated Creatinine Clearance 64 ml/min; Glucose 137 mg/dl (70-99); Potassium 4.1 mmol/L (3.5-5.1); Sodium 135 mmol/L (135-145); Total Bilirubin 0.7 mg/dl (0.2-1.3); Total Protein 6.6 g/dl (6.3-8.2); eGFR > 60.00
[2024-05-09 06:25] LABS: Carbon Dioxide 37 mmol/L (22-30)
[2024-05-09 07:44] LABS: Glucose - Point of Care 142 mg/dl (70-99)
[2024-05-09] MEDS: NOVOLOG FLEXPEN-LOW RESISTANCE SC ×2 (07:48→18:15)
[2024-05-09] MEDS: MUCINEX 1200 MG PO (08:36)
[2024-05-09] MEDS: LASIX 40 MG IV ×2 (08:37→18:01)
[2024-05-09] MEDS: CARDIZEM CD 120 MG PO ×2 (08:37→20:09)
[2024-05-09] MEDS: PACERONE 400 MG PO ×3 (08:38→22:33)
[2024-05-09] MEDS: REQUIP 0.25 MG PO ×3 (08:38→22:33)
[2024-05-09] MEDS: ELIQUIS 5 MG PO ×2 (08:38→20:09)
[2024-05-09] MEDS: FEOSOL 325 MG PO (08:38)
[2024-05-09] MEDS: GLUCOPHAGE 850 MG PO (08:39)
[2024-05-09] MEDS: ALPHAGAN P 0.15% EYE DROPS 1 DROP BOTH EYES ×2 (08:39→20:10)
--- NOTE | 2024-05-09 10:11 | W.PN.CARDCBS ---
Today's Communication / Plan
-
Continue IV Lasix
Check proBNP
Acetazolamide for metabolic alkalosis from diuretic
Ya Jardiance
Add low-dose spironolactone
Transition to oral diltiazem
Impression / Plan
-
.
Manufacturing Shift Supervisor: Dr. Graham
Impression:
Acute HFpEF
Atrial fibrillation with rapid ventricular response, new dx last admit, s/p STEVEN/CV 05/06/24
SVT with aberrancy versus nonsustained V. tach
COPD on home O2
Chronic hypoxia recently placed on 2L home O2
Mild mitral stenosis with moderate aortic stenosis from echo April 2024
Hypertension
Dyslipidemia
Type 2 diabetes mellitus
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
Microcytic anemia
History of Sjogren's
Echo 08/09/2023: EF 50-55%, mild MR, mild MS, mod with peak/mean gradients 57/34 mmHg, trace AI
Echo 04/28/2024: EF 55-60%, mild conc LVH, normal RV size and function, mild MS peak/mean 17/8 mmHg, mod with peak/mean 54/30 mmHg, mild to mod TR with PAP 48 mmHg
Plan:
She is improved but with ongoing issues, specifically persistent atrial fibrillation and HFpEF.
She remains in atrial fibrillation with a relatively controlled response. She is still on IV diltiazem. Amiodarone is 400 mg 3 times daily.
We will transition to oral diltiazem. Ideally, beta-blockers would be a better choice with heart failure.
She has a left pleural effusion and still has rales in her bases. She has diuresed roughly 3 kg. proBNP was 1850 on admission, will recheck.
Should probably be on an SGLT2 antagonist and also spironolactone. We will ask case management to salima Macdonald and Sena.
She is alkalotic, will add acetazolamide, consider as needed Zaroxolyn and will repeat chest x-ray on Sunday. Suspect she is still above dry weight.
Am not in favor of repeat cardioversion at this time.
Given what I think is persistent heart failure, she is not yet ready for discharge but hopefully discharge can be considered over the next 48 hours plus or minus
HPI: Zoya is a pleasant 83-year-old female who follows routinely with my colleague Dr. Graham recently seen April 22. She has a past medical history of COPD, hypertension, diabetes, sjogrens syndrome, psoriasis, history of squamous cell right
tonsil cancer status post radiation with mild mitral stenosis with a mean transit mitral gradient of 6 mmHg and moderate aortic stenosis with peak/mean transaortic gradients 57/34 mmHg with low normal LV ejection fraction estimated 50-55% based on
echocardiogram in August 2023. She has had progressive shortness of breath which has required increased doses of Lasix. She is also recently been seen by pulmonary and was recently put on home O2 within the last week. When last seen she was
taking Lasix 20 mg once daily and her weight was 177 pounds. At the time of her office visit no change was made to her Lasix but she was requested to have a repeat echocardiogram to reassess aortic valve disease. She presents to [facility] with acute worsening of shortness of breath of the last several days. She denies URI signs or symptoms or fevers. She denies cough.
Progress Note - Manufacturing Shift Supervisor
Subjective
Date of Service: May 09, 2024:
She feels better. Daughter at bedside, she feels weak
She remains on IV diltiazem with heart rates that are slightly under 100.
PMH/PSH/SH/FH: Reviewed
Allergies: Codeine, latex, lisinopril, simvastatin
Outpatient cardiac meds: Apixaban 5 twice daily, diltiazem ER 180 a day, also albuterol, glaucoma eyedrops, Spiriva
Current meds albuterol as needed, IV diltiazem, Mucinex, Xalatan, metformin, ropinirole, iron, apixaban 5 twice daily, insulin, Synthroid 25 mcg daily, Alphagan, furosemide 40 IV twice daily, amiodarone 400 3 times daily, diltiazem ER 120 daily
ROS: Negative except as above
White count 3.9, hemoglobin 11.3, platelets are 144, CO2 is 37, BUN and creatinine are 13 and 0.7, potassium is 4.1
Chest x-ray on admission left pleural effusion
EKG today atrial fibrillation with controlled ventricular response and nonspecific ST and T changes
Objective
Labs:
05/09/24 04:50
05/09/24 04:50
Labs
Hgb 11.3 g/dL (12.0-16.0) L 05/09/24 04:50
Hct 36.2 % (37.0-47.0) L 05/09/24 04:50
Plt Count 144 10^3/uL (130-400) 05/09/24 04:50
Sodium 135 mmol/L (135-145) 05/09/24 04:50
Potassium 4.1 mmol/L (3.5-5.1) 05/09/24 04:50
BUN 13 mg/dl (7-17) 05/09/24 04:50
Creatinine 0.7 mg/dL (0.6-1.0) 05/09/24 04:50
Glucose 137 mg/dl (70-99) H 05/09/24 04:50
Vital Signs and I&O:
Vital Signs
Temp Pulse Resp BP Pulse Ox
36.9 C 90 20 125/86 95
05/09/24 07:36 05/09/24 08:37 05/09/24 07:36 05/09/24 08:37 05/09/24 07:36
Vital Signs
Temp Pulse Resp BP Pulse Ox
36.9 C 90 20 125/86 95
05/09/24 07:36 05/09/24 08:37 05/09/24 07:36 05/09/24 08:37 05/09/24 07:36
Intake & Output
05/07/24 05/08/24 05/09/24 05/10/24
07:59 07:59 07:59 07:59
Intake Total 720 / 720 922 / 922
Output Total 1450 / 1450 2125 / 2125 420 / 420
Balance -730 / -730 -1203 / -1203 -420 / -420
Physical Exam
Physical Exam
125/86, pulse 90, respiratory 20, afebrile, sats 95%, weight is 80 kg on May 07, was 83.3 on admission intake and output likely incomplete
Head neck exam unremarkable, crackles in lungs, JVD not dramatically elevated, irregular rate and rhythm,Aortic stenosis murmur, possible soft MR murmur, abdomen benign extremities without much edema pulses palpable, neuro nonfocal
[2024-05-09 10:42] LABS: Glucose - Point of Care 124 mg/dl (70-99)
--- NOTE | 2024-05-09 10:57 | CM ---
Priced both Farxiga and Jardiance thru patient's Rx plan; both medications are estimated to be $11.20/month.
I have relayed this to Cards Attending.
[2024-05-09] MEDS: DIAMOX 250 MG PO (12:15)
[2024-05-09] MEDS: ALDACTONE 12.5 MG PO (12:16)
[2024-05-09 13:04] LABS: Glucose - Point of Care 239 mg/dl (70-99)
[2024-05-09] MEDS: NOVOLOG FLEXPEN-LOW RESISTANCE 2 UNITS SC (13:08)
--- NOTE | 2024-05-09 13:30 | CM ---
CM following for DC planning needs.
Met w/ patient + dtr., Charell at bedside.
Plan is for SNF @ [facility], likely Sunday if stable.
Updated [facility] w/ updated clinical info. + antic. DC date.
Will need IBC auth prior to transfer.
Plan: SNF @ [facility], ? Sunday.
--- NOTE | 2024-05-09 14:13 | W.PN.HOSP.TC ---
Today's Communication/Plan
-
Monitor vitals
See plan
Continue with IV Lasix, Diamox added
Monitor LFTs on amiodarone
Continue with diltiazem
Discharge planning
Daughter updated at bedside
Assessment / Plan
Assessment / Plan
Gen: NAD, AAOx3.
Eyes: EOMI, PERRLA, no scleral icterus.
Neck: supple.
CV: tachy, irreg/irreg, +S1/S2, no m/r/g.
Resp: B/L rales, greatest in the bases
Abd: +BS, soft, NT, ND
Skin: No rashes. 1-2+ B/L LE edema
Neuro: CN 2-12 intact, non-focal.
Psych: Normal mood and affect.
CXR: Left basilar opacity again seen in comparison to recent prior study, most likely representing subsegmental atelectasis and small left pleural effusion. Cannot exclude left basilar pneumonia.
Paroxysmal Afib
admitted with afib with RVR
on amiodarone
-cont Eliquis
-cont IV lasix
-cards following
Status post cardioversion 05/06, now back in A-fib with RVR. Wean Cardizem drip, now on p.o. Cardizem. Monitor LFTs with amiodarone
Acute on chronic CHF with preserved EF
Continue with IV Lasix, now with contraction alkalosis, Diamox added
Likely exacerbated by A-fib with RVR
Aldactone added
Chronic hypoxic respiratory insufficiency, only on nocturnal o2 and PRN at home
monitor o2; wean o2 as tolerated
h/o squamous cell right tonsil, s/p radiation
Due to dry throat, problems with eating dry food
Speech following, VSE 05/07 noted. Suspect secondary to Sjogren's
Hypomagnesemia
replete
Hypothyroidism:
-started Levoxyl 25mcg daily
-recheck TFTs in 4 weeks
Elevated LFTs
Continue to monitor while on amiodarone
Other problems:
COPD, not in acute exacerbation: Albuterol PRN
Essential hypertension: cont Cardziem
DM2: cont Metformin/SSI/accuchecks
Sjogren's syndrome
Psoriasis
Glaucoma: Continue Alphagan and Xalatan drops
h/o squamous cell right tonsil, s/p radiation
Major Depressive Disorder/anxiety: Ativan PRN
h/o Pulmonary Hypertension
Restless Leg Syndrome: cont Requip
Iron deficiency anemia: cont Ferrous Sulfate
FULL/Eliquis
Total time spent on today's encounter was 52 minutes which included time spent in counseling the patient/family regarding diagnosis and treatment plan as listed above, goals of care, and symptom management. Case was discussed with nursing staff,
specialists, and care coordinators/case management. All labs and imaging personally reviewed by me. Remainder the time spent in detailed review of previous records, lab data, imaging, and other medical provider documentation.
Anticipated Discharge: 24 - 48 hours
Subjective/Interval History
-
Date of Service: May 09, 2024
Denies pain
Objective Data
-
Labs:
Laboratory Results
05/09/24
04:50
WBC 3.9 L
Hgb 11.3 L
Hct 36.2 L
Plt Count 144
Sodium 135
Potassium 4.1
Chloride 89 L
Carbon Dioxide 37 H
BUN 13
Creatinine 0.7
Glucose 137 H
Calcium 9.1
Total Bilirubin 0.7
AST 63 H
ALT 49 H
Alkaline Phosphatase 207 H
Vital Signs:
Vital Signs
Temp Pulse Resp BP Pulse Ox
98.1 F 87 20 114/76 98
05/09/24 11:41 05/09/24 12:16 05/09/24 11:41 05/09/24 12:16 05/09/24 11:41
I&O
05/08/24 05/09/24 05/10/24
06:59 06:59 06:59
Intake Total 442 / 442 480 / 480
Output Total 2325 / 2325 420 / 420
Balance -1882 / -1882 60 60
--- NOTE | 2024-05-09 14:19 | PN.CDI ---
CDI
- -
CDI:
Physician Documentation Request
Admit Date: 05/03/24 16:23
Dear Doctor Khoa,
05/07 EKG, read by health companion, reports atrial flutter.
Please indicate in your progress notes if you are in agreement that the above diagnosis is valid for this patient:
____ - Atrial flutter is a valid diagnosis (Please include it in your progress notes)
____ - Atrial flutter is not a valid diagnosis for this patient
____ - Other
Use of terms such as suspected, likely, concern for, or probable are acceptable for a diagnosis that is being evaluated, monitored or treated as if it exists and can be coded in the inpatient setting, when documented at the time of discharge.
Thank you,
Edwina Najera RN, BSN
CDI Specialist
tiger text
Please use your independent medical judgment in providing your response.
[2024-05-09 16:00] LABS: NT-proBNP 1140 pg/ml
[2024-05-09 16:02] LABS: Glucose - Point of Care 159 mg/dl (70-99)
--- NOTE | 2024-05-09 18:20 | PTCARENOTE ---
pt continues to be afib on the monitor, hr in the 90s, vss. pt offers no complaints at this time. pt has been OOB to [facility]. Pt tolerating well. pt educated on plan of care for the evening and medication changes and pt verbalized understanding. call
carrizales within reach.
[2024-05-09 21:34] LABS: Glucose - Point of Care 163 mg/dl (70-99)
[2024-05-09] MEDS: XALATAN OPHTHALMIC SOLUTION 1 DROP BOTH EYES (22:34)
[2024-05-10] VITALS (13 sets, daily range): BP systolic 79–132; BP diastolic 52–80; BMI 24.6
[2024-05-10 03:05] LABS: % Basophils 0.7 % (0-2); % Eosinophils 2.7 % (0-6); % Lymphocytes 21.5 % (20.5-51.1); % Monocytes 10.5 % (1.7-9.3); % Neutrophils 64.6 % (42.2-75.2); Absolute Eosinophils 0.1 10^3/uL (0-0.7); Absolute Lymphocytes 0.9 10^3/uL (1.2-3.4); Absolute Monocytes 0.4 10^3/uL (0.1-0.6); Absolute Neutrophils 2.7 10^3/uL (1.4-6.5); Hemoglobin 11.9 g/dL (12.0-16.0); Mean Corpuscular Hgb 25.6 pg (27.0-31.0); Mean Corpuscular Volume 88.4 fL (81.0-99.0); Mean Platelet Volume 10.4 fL (7.4-10.4); Nucleated Red Blood Cells % 0 %; Platelet Count 144 10^3/uL (130-400); Red Blood Cell Count 4.64 10^6/uL (4.20-5.40); Red Cell Dist. Width 18.1 % (11.5-14.5); White Blood Cell Count 4.1 10^3/uL (4.8-10.8)
[2024-05-10 03:21] LABS: Blood Urea Nitrogen 12 mg/dl (7-17); Calcium 9.4 mg/dl (8.4-10.2); Carbon Dioxide 40 mmol/L (22-30); Chloride 90 mmol/L (98-107); Estimated Creatinine Clearance 56 ml/min; Glucose 144 mg/dl (70-99); Potassium 4.1 mmol/L (3.5-5.1); Sodium 137 mmol/L (135-145); eGFR > 60.00
[2024-05-10] MEDS: SYNTHROID 25 MCG PO (05:53)
--- NOTE | 2024-05-10 06:19 | PTCARENOTE ---
Assumed care of patient at change of shift. Patient resting in bed with no complaints of chest pain or SOB. VSS on 2L of O2 via nasal cannula. Afib on monitor. Patient instructed to ring for assistance when needed to use commode and verbalized
understanding. Call carrizales within reach.
[2024-05-10 07:12] LABS: Glucose - Point of Care 133 mg/dl (70-99)
--- NOTE | 2024-05-10 08:10 | PTCARENOTE ---
Assumed care of pt from prev nsg shift, AAOx3 w/no c/o CP or SOB. Pt w/decreased breath sounds bilat 1/2 up & coarse in the bases. Pt reports 'feeling much better'. VS Stable w/BP 116/75, HR elevated at times in the 100's-110's. aware. Pt w/call
carrizales within reach & plan of care ongoing.
[2024-05-10] MEDS: NOVOLOG FLEXPEN-LOW RESISTANCE SC ×3 (08:27→17:38)
[2024-05-10] MEDS: ALDACTONE 12.5 MG PO (09:39)
[2024-05-10] MEDS: ALPHAGAN P 0.15% EYE DROPS 1 DROP BOTH EYES ×2 (09:43→19:56)
[2024-05-10] MEDS: DIAMOX 250 MG PO (09:44)
[2024-05-10] MEDS: PACERONE 400 MG PO ×3 (09:45→23:16)
[2024-05-10] MEDS: MUCINEX 1200 MG PO (09:45)
[2024-05-10] MEDS: REQUIP 0.25 MG PO ×3 (09:45→23:15)
[2024-05-10] MEDS: GLUCOPHAGE 850 MG PO (09:45)
[2024-05-10] MEDS: FEOSOL 325 MG PO (09:46)
[2024-05-10] MEDS: ELIQUIS 5 MG PO ×2 (09:46→19:55)
[2024-05-10] MEDS: CARDIZEM CD 120 MG PO (09:47)
[2024-05-10] MEDS: LASIX 40 MG IV ×2 (09:47→17:47)
[2024-05-10] MEDS: FLUSH (NSS) 2 FLUSH IV (09:48)
--- NOTE | 2024-05-10 10:21 | W.PN.CARDCBS ---
Today's Communication / Plan
-
Add Jardiance 10 mg a day
Attempt to transition carvedilol to metoprolol
Continue IV furosemide/acetazolamide/spironolactone
Continue amiodarone
Follow LFTs on amiodarone
Consider repeat cardioversion Sunday if rates remain difficult to control
Impression / Plan
-
.
Dispensing Lead: Dr. Graham
Impression:
Acute HFpEF
Atrial fibrillation with rapid ventricular response, new dx last admit, s/p STEVEN/CV 05/06/24
SVT with aberrancy versus nonsustained V. tach
COPD on home O2
Chronic hypoxia recently placed on 2L home O2
Mild mitral stenosis with moderate aortic stenosis from echo April 2024
Hypertension
Dyslipidemia
Type 2 diabetes mellitus
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
Microcytic anemia
History of Sjogren's
Echo 08/09/2023: EF 50-55%, mild MR, mild MS, mod with peak/mean gradients 57/34 mmHg, trace AI
Echo 04/28/2024: EF 55-60%, mild conc LVH, normal RV size and function, mild MS peak/mean 17/8 mmHg, mod with peak/mean 54/30 mmHg, mild to mod TR with PAP 48 mmHg
Plan:
She is modestly improved but tachycardic. Still with HFpEF, now on acetazolamide plus spironolactone. proBNP was 1140 yesterday, 1850 a week prior
Rate control remains an issue. She is on high-dose amiodarone. On diltiazem, less than ideal with HFpEF
She is not actively wheezing, will attempt to transition to beta-birdie, continue amiodarone if LFTs are not rising.
Will add Jardiance 10 mg a day
Continue to follow electrolytes.
If rates remain difficult to control might consider cardioversion on Sunday.
Hopefully rate control, HFpEF will improve over the next 24 to 48 hour, and she will revert to sinus rhythm.
HPI: Zoya is a pleasant 83-year-old female who follows routinely with my colleague Dr. Graham recently seen April 22. She has a past medical history of COPD, hypertension, diabetes, sjogrens syndrome, psoriasis, history of squamous cell right
tonsil cancer status post radiation with mild mitral stenosis with a mean transit mitral gradient of 6 mmHg and moderate aortic stenosis with peak/mean transaortic gradients 57/34 mmHg with low normal LV ejection fraction estimated 50-55% based on
echocardiogram in August 2023. She has had progressive shortness of breath which has required increased doses of Lasix. She is also recently been seen by pulmonary and was recently put on home O2 within the last week. When last seen she was
taking Lasix 20 mg once daily and her weight was 177 pounds. At the time of her office visit no change was made to her Lasix but she was requested to have a repeat echocardiogram to reassess aortic valve disease. She presents to [place]
hospital with acute worsening of shortness of breath of the last several days. She denies URI signs or symptoms or fevers. She denies cough.
Progress Note - Dispensing Lead
Subjective
Date of Service: May 10, 2024:
Overall she feels better but heart rate is up on oral diltiazem, dyspnea is improved, bicarbonate is up despite acetazolamide, BUN and creatinine are still low, now on spironolactone, Jardiance is $12 a month
PMH/PSH/SH/FH: Reviewed
Allergies: Codeine, latex, lisinopril, simvastatin
Outpatient cardiac meds: Apixaban 5 twice daily, diltiazem ER 180 mg a day,
Current meds: Mucinex, Xalatan, metformin, iron, extubated 5 twice daily, levothyroxine, furosemide 40 IV twice daily, amiodarone 400 3 times daily, acetazolamide 250 daily, spironolactone 12.5 daily, diltiazem ER 120 mg twice daily
ROS: Negative except as above
hemoglobin 11.9, BUN and creatinine 12 and 0.8 with bicarbonate of 40, anion gap is 7, LFTs are pending
Telemetry: Rate is rapid
Objective
Labs:
05/10/24 02:51
05/10/24 02:50
Labs
Hgb 11.9 g/dL (12.0-16.0) L 05/10/24 02:51
Hct 41.0 % (37.0-47.0) 05/10/24 02:51
Plt Count 144 10^3/uL (130-400) 05/10/24 02:51
Sodium 137 mmol/L (135-145) 05/10/24 02:50
Potassium 4.1 mmol/L (3.5-5.1) 05/10/24 02:50
BUN 12 mg/dl (7-17) 05/10/24 02:50
Creatinine 0.8 mg/dL (0.6-1.0) 05/10/24 02:50
Glucose 144 mg/dl (70-99) H 05/10/24 02:50
Vital Signs and I&O:
Vital Signs
Temp Pulse Resp BP Pulse Ox
36.7 C 112 18 111/80 99
05/10/24 07:17 05/10/24 09:47 05/10/24 07:17 05/10/24 09:47 05/10/24 07:17
Vital Signs
Temp Pulse Resp BP Pulse Ox
36.7 C 112 18 111/80 99
05/10/24 07:17 05/10/24 09:47 05/10/24 07:17 05/10/24 09:47 05/10/24 07:17
Intake & Output
05/08/24 05/09/24 05/10/24 05/11/24
07:59 07:59 07:59 07:59
Intake Total 922 / 922 360 / 360
Output Total 2125 / 2125 420 / 420 250 / 250
Balance -1203 / -1203 -420 / -420 110 / 110
Physical Exam
Physical Exam
111/88, pulse 7012, respiratory 18, afebrile, intake and output likely, weight is 77.9 kg if accurate down to 1.9 kg, somewhat tachypneic, crackles but no wheezing, JVD okay, irregular relatively tachycardic, AAS murmur, MR murmur, abdomen benign,
1+ edema
[2024-05-10 11:13] LABS: ALT (SGPT) 42 U/L (0-35); AST (SGOT) 50 U/L (14-36); Albumin 3.8 g/dl (3.5-5.0); Alkaline Phosphatase 182 U/L (38-126); Direct Bilirubin 0.2 mg/dl (0.0-0.4); Total Bilirubin 0.6 mg/dl (0.2-1.3); Total Protein 6.6 g/dl (6.3-8.2)
[2024-05-10 12:17] LABS: Glucose - Point of Care 150 mg/dl (70-99)
[2024-05-10] MEDS: LOPRESSOR 25 MG PO ×3 (13:35→23:15)
[2024-05-10] MEDS: JARDIANCE 10 MG PO (13:35)
--- NOTE | 2024-05-10 14:25 | W.PN.HOSP.TC ---
Today's Communication/Plan
-
Monitor vital signs see plan
continue IV Lasix
Added Jardiance
Continue with Cardizem
PT/OT
Assessment / Plan
Assessment / Plan
Gen: NAD, AAOx3.
Eyes: EOMI, PERRLA, no scleral icterus.
Neck: supple.
CV: tachy, irreg/irreg, +S1/S2, no m/r/g.
Resp: B/L rales, greatest in the bases
Abd: +BS, soft, NT, ND
Skin: No rashes. 1-2+ B/L LE edema
Neuro: CN 2-12 intact, non-focal.
Psych: Normal mood and affect.
CXR: Left basilar opacity again seen in comparison to recent prior study, most likely representing subsegmental atelectasis and small left pleural effusion. Cannot exclude left basilar pneumonia.
Paroxysmal Afib
admitted with afib with RVR
on amiodarone
-cont Eliquis
-cont IV lasix
-cards following
Status post cardioversion 05/06, now back in A-fib with RVR. now on p.o. Cardizem. Monitor LFTs with amiodarone
Acute on chronic CHF with preserved EF
Continue with IV Lasix, now with contraction alkalosis, Diamox added
Likely exacerbated by A-fib with RVR
Aldactone added
Added Jardiance
Chronic hypoxic respiratory insufficiency, only on nocturnal o2 and PRN at home
monitor o2; wean o2 as tolerated
h/o squamous cell right tonsil, s/p radiation
Due to dry throat, problems with eating dry food
Speech following, VSE 05/07 noted. Suspect secondary to Sjogren's
Hypomagnesemia
replete
Hypothyroidism:
-started Levoxyl 25mcg daily
-recheck TFTs in 4 weeks
Elevated LFTs
Continue to monitor while on amiodarone
Other problems:
COPD, not in acute exacerbation: Albuterol PRN
Essential hypertension: cont Cardziem
DM2: cont Metformin/SSI/accuchecks
Sjogren's syndrome
Psoriasis
Glaucoma: Continue Alphagan and Xalatan drops
h/o squamous cell right tonsil, s/p radiation
Major Depressive Disorder/anxiety: Ativan PRN
h/o Pulmonary Hypertension
Restless Leg Syndrome: cont Requip
Iron deficiency anemia: cont Ferrous Sulfate
FULL/Eliquis
Total time spent on today's encounter was 51 minutes which included time spent in counseling the patient/family regarding diagnosis and treatment plan as listed above, goals of care, and symptom management. Case was discussed with nursing staff,
specialists, and care coordinators/case management. All labs and imaging personally reviewed by me. Remainder the time spent in detailed review of previous records, lab data, imaging, and other medical provider documentation.
Anticipated Discharge: > 48 hours
Subjective/Interval History
-
Date of Service: May 10, 2024
denies pain
Objective Data
-
Labs:
Laboratory Results
05/10/24 05/10/24 05/10/24
02:50 02:51 10:18
WBC 4.1 L
Hgb 11.9 L
Hct 41.0
Plt Count 144
Sodium 137
Potassium 4.1
Chloride 90 L
Carbon Dioxide 40 H
BUN 12
Creatinine 0.8
Glucose 144 H
Calcium 9.4
Total Bilirubin 0.6
AST 50 H
ALT 42 H
Alkaline Phosphatase 182 H
Vital Signs:
Vital Signs
Temp Pulse Resp BP Pulse Ox
97.8 F 92 18 114/61 97
05/10/24 12:47 05/10/24 13:35 05/10/24 12:47 05/10/24 13:35 05/10/24 12:47
I&O
05/09/24 05/10/24 05/11/24
06:59 06:59 06:59
Intake Total 480 / 480 360 / 360
Output Total 420 / 420 250 / 250 100 / 100
Balance 60 / 60 110 / 110 -100 / -100
[2024-05-10 17:19] LABS: Glucose - Point of Care 119 mg/dl (70-99)
--- NOTE | 2024-05-10 18:37 | PTCARENOTE ---
Pt w/some nausea & dry heaving a few hours after AM meds. Pt w/decreased appetite & stated she 'felt anxious after seeing two Drs back to back & taking meds on an empty stomach'. Pt declined this RN getting something for N&V. Nausea resolved & pt
able to PO meds midday as ordered. Plan of care ongoing.
[2024-05-10 22:15] LABS: Glucose - Point of Care 113 mg/dl (70-99)
[2024-05-10] MEDS: XALATAN OPHTHALMIC SOLUTION 1 DROP BOTH EYES (23:16)
[2024-05-11] VITALS (8 sets, daily range): BP systolic 94–122; BP diastolic 45–73; BMI 24.4
--- NOTE | 2024-05-11 03:32 | PTCARENOTE ---
Patient remains Afib on monitor, No complaints of pain. Ambulates with assist x1 to BS. Denies dizziness. Aware of plan of care. Call carrizales within reach
[2024-05-11 04:07] LABS: % Basophils 0.5 % (0-2); % Eosinophils 2.5 % (0-6); % Immature Granulocytes 0.2 % (0-0.5); % Lymphocytes 15.2 % (20.5-51.1); % Monocytes 9.2 % (1.7-9.3); % Neutrophils 72.4 % (42.2-75.2); Absolute Eosinophils 0.1 10^3/uL (0-0.7); Absolute Lymphocytes 0.6 10^3/uL (1.2-3.4); Absolute Monocytes 0.4 10^3/uL (0.1-0.6); Absolute Neutrophils 2.9 10^3/uL (1.4-6.5); Hematocrit 39.6 % (37.0-47.0); Hemoglobin 12.1 g/dL (12.0-16.0); Mean Corp Hgb Conc. 30.6 g/dL (33.0-37.0); Mean Corpuscular Hgb 26.1 pg (27.0-31.0); Mean Corpuscular Volume 85.3 fL (81.0-99.0); Mean Platelet Volume 10.2 fL (7.4-10.4); Nucleated Red Blood Cells % 0 %; Platelet Count 159 10^3/uL (130-400); Red Blood Cell Count 4.64 10^6/uL (4.20-5.40); Red Cell Dist. Width 18.3 % (11.5-14.5)
[2024-05-11 04:30] LABS: ALT (SGPT) 43 U/L (0-35); AST (SGOT) 52 U/L (14-36); Alkaline Phosphatase 177 U/L (38-126); Blood Urea Nitrogen 15 mg/dl (7-17); Calcium 9.7 mg/dl (8.4-10.2); Carbon Dioxide 40 mmol/L (22-30); Chloride 90 mmol/L (98-107); Estimated Creatinine Clearance 44 ml/min; Glucose 116 mg/dl (70-99); Potassium 4.1 mmol/L (3.5-5.1); Sodium 135 mmol/L (135-145); Total Bilirubin 0.7 mg/dl (0.2-1.3); eGFR 55.21
[2024-05-11] MEDS: SYNTHROID 25 MCG PO (06:06)
[2024-05-11] MEDS: LOPRESSOR 25 MG PO ×2 (06:06→12:29)
[2024-05-11 07:31] LABS: Glucose - Point of Care 122 mg/dl (70-99)
[2024-05-11] MEDS: NOVOLOG FLEXPEN-LOW RESISTANCE SC ×3 (07:51→18:46)
[2024-05-11] MEDS: FEOSOL 325 MG PO (08:07)
[2024-05-11] MEDS: MUCINEX 1200 MG PO (08:07)
[2024-05-11] MEDS: REQUIP 0.25 MG PO ×3 (08:08→21:39)
[2024-05-11] MEDS: ELIQUIS 5 MG PO ×2 (08:08→21:39)
[2024-05-11] MEDS: PACERONE 400 MG PO ×3 (08:08→21:39)
[2024-05-11] MEDS: ALPHAGAN P 0.15% EYE DROPS 1 DROP BOTH EYES ×2 (08:09→21:39)
[2024-05-11] MEDS: DIAMOX 250 MG PO (08:09)
[2024-05-11] MEDS: GLUCOPHAGE 850 MG PO (08:11)
[2024-05-11] MEDS: ALDACTONE 12.5 MG PO (10:06)
[2024-05-11] MEDS: JARDIANCE 10 MG PO (10:06)
[2024-05-11] MEDS: LASIX 40 MG IV ×2 (10:06→16:41)
[2024-05-11] MEDS: CARDIZEM CD 120 MG PO (10:06)
--- NOTE | 2024-05-11 11:29 | PTCARENOTE ---
Pt continues to be aflutter on the monitor, hr in the 70s, vss. pt offers no complaints this am, just states 'I am tired.' pt OOB for breakfast. tolerated well. pt educated on plan of care and pt verbalized understanding. call carrizales within reach.
--- NOTE | 2024-05-11 13:22 | W.PN.HOSP.TC ---
Today's Communication/Plan
-
Monitor vital signs see plan
Continue with diuresis per cardiology
Diamox noted
Continue with Cardizem, metoprolol
Also on amiodarone
Will need SNF on DC
Assessment / Plan
Assessment / Plan
Gen: NAD, AAOx3.
Eyes: EOMI, PERRLA, no scleral icterus.
Neck: supple.
CV: tachy, irreg/irreg, +S1/S2, no m/r/g.
Resp: B/L rales, greatest in the bases
Abd: +BS, soft, NT, ND
Skin: No rashes. 1-2+ B/L LE edema
Neuro: CN 2-12 intact, non-focal.
Psych: Normal mood and affect.
CXR: Left basilar opacity again seen in comparison to recent prior study, most likely representing subsegmental atelectasis and small left pleural effusion. Cannot exclude left basilar pneumonia.
Paroxysmal Afib
admitted with afib with RVR
Also has periods of atrial flutter
on amiodarone
-cont Eliquis
-cont IV lasix, Diamox
-cards following
Status post cardioversion 05/06, now back in A-fib with RVR. now on p.o. Cardizem. also on PO lopressor; Monitor LFTs with amiodarone
Acute on chronic CHF with preserved EF
Continue with IV Lasix, now with contraction alkalosis, Diamox added
Likely exacerbated by A-fib with RVR
Aldactone added
Added Jardiance
Chronic hypoxic respiratory insufficiency, only on nocturnal o2 and PRN at home
monitor o2; wean o2 as tolerated
h/o squamous cell right tonsil, s/p radiation
Due to dry throat, problems with eating dry food
Speech following, VSE 05/07 noted. Suspect secondary to Sjogren's
Hypomagnesemia
improved
Hypothyroidism
-started Levoxyl 25mcg daily
-recheck TFTs in 4 weeks
Elevated LFTs
Continue to monitor while on amiodarone
Other problems:
COPD, not in acute exacerbation: Albuterol PRN
Essential hypertension: cont Cardziem
DM2: cont Metformin/SSI/accuchecks
Sjogren's syndrome
Psoriasis
Glaucoma: Continue Alphagan and Xalatan drops
h/o squamous cell right tonsil, s/p radiation
Major Depressive Disorder/anxiety: Ativan PRN
h/o Pulmonary Hypertension
Restless Leg Syndrome: cont Requip
Iron deficiency anemia: cont Ferrous Sulfate
FULL/Eliquis
SNF on DC
Total time spent on today's encounter was 52 minutes which included time spent in counseling the patient/family regarding diagnosis and treatment plan as listed above, goals of care, and symptom management. Case was discussed with nursing staff,
specialists, and care coordinators/case management. All labs and imaging personally reviewed by me. Remainder the time spent in detailed review of previous records, lab data, imaging, and other medical provider documentation.
Anticipated Discharge: 24 - 48 hours
Subjective/Interval History
-
Date of Service: May 11, 2024
Denies pain
Objective Data
-
Labs:
Laboratory Results
05/11/24
03:50
WBC 4.0 L
Hgb 12.1
Hct 39.6
Plt Count 159
Sodium 135
Potassium 4.1
Chloride 90 L
Carbon Dioxide 40 H
BUN 15
Creatinine 1.0
Glucose 116 H
Calcium 9.7
Total Bilirubin 0.7
AST 52 H
ALT 43 H
Alkaline Phosphatase 177 H
Vital Signs:
Vital Signs
Temp Pulse Resp BP Pulse Ox
98 F 73 20 122/73 99
05/11/24 11:48 05/11/24 10:06 05/11/24 11:48 05/11/24 10:06 05/11/24 11:48
I&O
05/10/24 05/11/24 05/12/24
06:59 06:59 06:59
Intake Total 360 / 360 420 / 420 240 / 240
Output Total 250 / 250 1250 / 1250
Balance 110 / 110 -830 / -830 240 / 240
--- NOTE | 2024-05-11 14:39 | W.PN.CARDCBS ---
Today's Communication / Plan
-
Stop diltiazem
Decrease amiodarone to 200 mg twice daily
Consolidate metoprolol to tartrate from 25 every 6 to metoprolol ER 50 every 12, may need to uptitrate
Switch to oral furosemide in a.m., 40 mg p.o. twice daily instead of 40 mg IV twice daily
Continue digoxin, check level
Consider outpatient cardioversion
Check chest x-ray, repeat proBNP, check venous blood gas given bicarbonate of 40 despite acetazolamide
Discharge planning
Impression / Plan
-
.
Quarry Boss: Dr. Graham
Impression:
Acute HFpEF
Atrial fibrillation with rapid ventricular response, new dx last admit, s/p STEVEN/CV 05/06/24
SVT with aberrancy versus nonsustained V. tach
COPD on home O2
Chronic hypoxia recently placed on 2L home O2
Mild mitral stenosis with moderate aortic stenosis from echo April 2024
Hypertension
Dyslipidemia
Type 2 diabetes mellitus
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
Microcytic anemia
History of Sjogren's
Echo 08/09/2023: EF 50-55%, mild MR, mild MS, mod with peak/mean gradients 57/34 mmHg, trace AI
Echo 04/28/2024: EF 55-60%, mild conc LVH, normal RV size and function, mild MS peak/mean 17/8 mmHg, mod with peak/mean 54/30 mmHg, mild to mod TR with PAP 48 mmHg
Plan:
She is modestly improved but tachycardic. Still with HFpEF, now on acetazolamide plus spironolactone. proBNP was 1140 yesterday, 1850 a week prior
Rate control remains an issue. She is on high-dose amiodarone. On diltiazem, less than ideal with HFpEF
She is not actively wheezing, will attempt to transition to beta-birdie, continue amiodarone if LFTs are not rising.
Will add Jardiance 10 mg a day
Continue to follow electrolytes.
If rates remain difficult to control might consider cardioversion on Sunday.
Hopefully rate control, HFpEF will improve over the next 24 to 48 hour, and she will revert to sinus rhythm.
HPI: Zoya is a pleasant 83-year-old female who follows routinely with my colleague Dr. Graham recently seen April 22. She has a past medical history of COPD, hypertension, diabetes, sjogrens syndrome, psoriasis, history of squamous cell right
tonsil cancer status post radiation with mild mitral stenosis with a mean transit mitral gradient of 6 mmHg and moderate aortic stenosis with peak/mean transaortic gradients 57/34 mmHg with low normal LV ejection fraction estimated 50-55% based on
echocardiogram in August 2023. She has had progressive shortness of breath which has required increased doses of Lasix. She is also recently been seen by pulmonary and was recently put on home O2 within the last week. When last seen she was
taking Lasix 20 mg once daily and her weight was 177 pounds. At the time of her office visit no change was made to her Lasix but she was requested to have a repeat echocardiogram to reassess aortic valve disease. She presents to [place]
[facility] with acute worsening of shortness of breath of the last several days. She denies URI signs or symptoms or fevers. She denies cough.
Progress Note - Quarry Boss
Subjective
Date of Service: May 11, 2024:
Breathing is better, she feels somewhat weak today
PMH/PSH/SH/FH: Reviewed
Allergies: Codeine, lisinopril, simvastatin
Outpatient cardiac meds: Apixaban 5 mg twice daily, diltiazem ER 180 mg a day latanoprost, metformin, ropinirole, Spiriva
Current meds: Albuterol, Mucinex, latanoprost, metformin, ropinirole 0.25 3 times daily, iron sulfate, apixaban 5 twice daily, insulin, levothyroxine 25 mcg a day, brimonidine eyedrops, furosemide 40 IV twice daily, amiodarone 400 3 times daily,
acetazolamide 250 mg daily, spironolactone 12.5 mg daily, dapagliflozin 10 mg a day, metoprolol tartrate 25 every 6, diltiazem ER 120 mg a day and Spiriva
ROS negative except as above
Blood pressure 122/73, low of 99/71, pulse 70s, weight is 77.1 kg down 0.8 kg, admission weight was 83.4 kg, sats 99% on 2 L
No acute distress, appears somewhat fatigued, head neck exam unremarkable, lungs with persistent crackles, irregular rate and rhythm, AAS murmur, soft MR murmur, JVD okay, not much edema left lower extremity, right lower extremity 1+ to 2+, leg is
hanging over the side of the bed, neuro nonfocal
White count 4, hemoglobin 12.1, is 159, potassium 4.1, bicarbonate 40, BUN and creatinine 15 and 1, AST 52, ALT 43, not substantially changed
Heart rate much better controlled with the addition of metoprolol and reduction in diltiazem
LFTs modestly elevated but stable
Objective
Labs:
05/11/24 03:50
05/11/24 03:50
Labs
Hgb 12.1 g/dL (12.0-16.0) 05/11/24 03:50
Hct 39.6 % (37.0-47.0) 05/11/24 03:50
Plt Count 159 10^3/uL (130-400) 05/11/24 03:50
Sodium 135 mmol/L (135-145) 05/11/24 03:50
Potassium 4.1 mmol/L (3.5-5.1) 05/11/24 03:50
BUN 15 mg/dl (7-17) 05/11/24 03:50
Creatinine 1.0 mg/dL (0.6-1.0) 05/11/24 03:50
Glucose 116 mg/dl (70-99) H 05/11/24 03:50
Vital Signs and I&O:
Vital Signs
Temp Pulse Resp BP Pulse Ox
36.6 C 73 20 122/73 99
05/11/24 11:48 05/11/24 10:06 05/11/24 11:48 05/11/24 10:06 05/11/24 11:48
Vital Signs
Temp Pulse Resp BP Pulse Ox
36.6 C 73 20 122/73 99
05/11/24 11:48 05/11/24 10:06 05/11/24 11:48 05/11/24 10:06 05/11/24 11:48
Intake & Output
05/09/24 05/10/24 05/11/24 05/12/24
07:59 07:59 07:59 07:59
Intake Total 360 / 360 660 / 660
Output Total 420 / 420 250 / 250 1250 / 1250
Balance -420 / -420 110 / 110 -590 / -590
Physical Exam
Physical Exam
See above
[2024-05-11 16:47] LABS: Glucose - Point of Care 117 mg/dl (70-99)
--- NOTE | 2024-05-11 17:12 | PTCARENOTE ---
pt continues to be afib on the monitor, hr in the 70s, vss. pt offers no complaints at this time. pt OOB into waiting area to relax.pt educated on plan of care for the evening and pt verbalized understanding. call carrizales within reach.
..........................................................................................................................................................................................................................................................
..........................................................................................................................................................................................................................................................
..........................................................................................................................................................................................................................................................
...
[2024-05-11 18:03] LABS: Venous Blood Gas HCO3 39.9 mmol/L (22-27); Venous Blood Gas O2 Sat % 68.4 %; Venous Blood Gas pH 7.29 (7.32-7.43); Venous Blood Gas pO2 42 mmHg (30-50)
[2024-05-11 18:07] LABS: Venous Blood Gas pCO2 83 mmHg (35-48)
--- NOTE | 2024-05-11 19:20 | PTCARENOTE ---
notified jose patterson of CO2 level, ordered bipap. pt educated on plan of care. call carrizales within reach.
[2024-05-11 21:22] LABS: Glucose - Point of Care 157 mg/dl (70-99)
[2024-05-11] MEDS: XALATAN OPHTHALMIC SOLUTION 1 DROP BOTH EYES (21:38)
[2024-05-11] MEDS: TOPROL XL 50 MG PO (21:39)
[2024-05-12 02:42] VITALS: BP 97/62
[2024-05-12 03:55] VITALS: BP 107/63
[2024-05-12 04:20] LABS: % Basophils 0.5 % (0-2); % Eosinophils 1.2 % (0-6); % Immature Granulocytes 0.2 % (0-0.5); % Lymphocytes 16.7 % (20.5-51.1); % Monocytes 7.5 % (1.7-9.3); % Neutrophils 73.9 % (42.2-75.2); Absolute Eosinophils 0.1 10^3/uL (0-0.7); Absolute Lymphocytes 0.7 10^3/uL (1.2-3.4); Absolute Monocytes 0.3 10^3/uL (0.1-0.6); Absolute Neutrophils 3.1 10^3/uL (1.4-6.5); Hemoglobin 12.7 g/dL (12.0-16.0); Mean Corp Hgb Conc. 30.2 g/dL (33.0-37.0); Mean Corpuscular Hgb 25.9 pg (27.0-31.0); Mean Corpuscular Volume 85.7 fL (81.0-99.0); Nucleated Red Blood Cells % 0 %; Platelet Count 171 10^3/uL (130-400); Red Cell Dist. Width 18.5 % (11.5-14.5); White Blood Cell Count 4.3 10^3/uL (4.8-10.8)
[2024-05-12 04:43] LABS: ALT (SGPT) 41 U/L (0-35); AST (SGOT) 51 U/L (14-36); Albumin 4.2 g/dl (3.5-5.0); Alkaline Phosphatase 188 U/L (38-126); Blood Urea Nitrogen 20 mg/dl (7-17); Calcium 9.8 mg/dl (8.4-10.2); Carbon Dioxide 38 mmol/L (22-30); Chloride 89 mmol/L (98-107); Estimated Creatinine Clearance 40 ml/min; Glucose 113 mg/dl (70-99); Sodium 136 mmol/L (135-145); Total Bilirubin 0.7 mg/dl (0.2-1.3); Total Protein 7.3 g/dl (6.3-8.2); eGFR 49.24
[2024-05-12 04:50] LABS: NT-proBNP 1670 pg/ml
[2024-05-12 05:51] VITALS: BMI 24.0
[2024-05-12] MEDS: SYNTHROID 25 MCG PO (06:39)
[2024-05-12 06:55] VITALS: BP 100/70
[2024-05-12 07:01] LABS: Glucose - Point of Care 112 mg/dl (70-99)
--- NOTE | 2024-05-12 07:32 | W.PN.HOSP.TC ---
Addendum entered and electronically signed by Wild Stanford MD 05/12/24 12:51:
Total time spent on d/c = 34 min. This included today's physical exam, progress note, review of laboratory and diagnostic data, preparation of discharge documents and prescriptions, and discussions about the pt's hospital course and discharge plan
with the patient and other medical record librarians teacher involved in the patient's care.
Original Note:
Today's Communication/Plan
-
d/c today if OK with cards
Assessment / Plan
Assessment / Plan
Gen: NAD, AAOx3.
Eyes: EOMI, PERRLA, no scleral icterus.
Neck: supple.
CV: irreg/irreg, +S1/S2, no m/r/g.
Resp: CTAB anteriorly
Abd: +BS, soft, NT, ND
Skin: No rashes. No LE edema
Neuro: CN 2-12 intact, non-focal.
Psych: Normal mood and affect.
CXR: Left basilar opacity again seen in comparison to recent prior study, most likely representing subsegmental atelectasis and small left pleural effusion. Cannot exclude left basilar pneumonia.
Paroxysmal Afib:
-admitted with afib with RVR
-also had periods of atrial flutter
-s/p cardioversion 05/06/24, then back in A-fib with RVR. Was on PO Cardizem and PO Lopressor, Cardizem now stopped.
-cont Amio/Eliquis
-cards following
Acute on chronic HFpEF:
-exacerbated by afib with RVR
-was on IV Lasix, now transitioned to PO Lasix
-Diamox added for contraction alkalosis
-cont Aldactone/Jardiance/Toprol XL
Hypothyroidism:
-started Levoxyl 25mcg daily
-recheck TFTs in 4 weeks
Elevated LFTs
-minimally elevated and stable
-Continue to monitor while on amiodarone
h/o squamous cell right tonsil, s/p radiation
Due to dry throat, problems with eating dry food
Speech following, VSE 05/07 noted. Suspect secondary to Sjogren's
Other problems:
Chronic hypoxic respiratory insufficiency, only on nocturnal PRN O2 at home
Hypomagnesemia, resolved
COPD, not in acute exacerbation: Albuterol PRN
Essential hypertension: cont Toprol XL/Aldactone
DM2: cont Metformin/SSI/accuchecks
Sjogren's syndrome
Psoriasis
Glaucoma: Continue Alphagan and Xalatan drops
h/o squamous cell right tonsil, s/p radiation
Major Depressive Disorder/anxiety: Ativan PRN
h/o Pulmonary Hypertension
Restless Leg Syndrome: cont Requip
Iron deficiency anemia: cont Ferrous Sulfate
FULL/Eliquis
Anticipated Discharge: Today
Subjective/Interval History
-
Date of Service: May 12, 2024
Denies CP/SOB.
Objective Data
-
Labs:
Laboratory Results
05/12/24
04:03
WBC 4.3 L
Hgb 12.7
Hct 42.0
Plt Count 171
Sodium 136
Potassium 4.0
Chloride 89 L
Carbon Dioxide 38 H
BUN 20 H
Creatinine 1.1 H
Glucose 113 H
Calcium 9.8
Total Bilirubin 0.7
AST 51 H
ALT 41 H
Alkaline Phosphatase 188 H
Vital Signs:
Vital Signs
Temp Pulse Resp BP Pulse Ox
97.6 F 92 18 100/70 98
05/12/24 07:03 05/12/24 07:00 05/12/24 07:03 05/12/24 06:55 05/12/24 07:03
I&O
05/11/24 05/12/2405/13/24
06:59 06:59 06:59
Intake Total 420 / 420 480 / 480
Output Total 1250 / 1250 1200 / 1200
Balance -830 / -830 -720 / -720
[2024-05-12] MEDS: REQUIP 0.25 MG PO (07:44)
[2024-05-12] MEDS: PACERONE 200 MG PO (07:44)
[2024-05-12] MEDS: NOVOLOG FLEXPEN-LOW RESISTANCE SC ×2 (07:44→12:01)
[2024-05-12] MEDS: LASIX 40 MG PO (07:45)
[2024-05-12] MEDS: DIAMOX 250 MG PO (07:45)
[2024-05-12] MEDS: MUCINEX 1200 MG PO (07:45)
[2024-05-12] MEDS: ELIQUIS 5 MG PO (07:45)
[2024-05-12] MEDS: GLUCOPHAGE 850 MG PO (07:46)
[2024-05-12] MEDS: ALDACTONE 12.5 MG PO (07:46)
[2024-05-12] MEDS: JARDIANCE 10 MG PO (07:46)
[2024-05-12] MEDS: FEOSOL 325 MG PO (07:46)
[2024-05-12] MEDS: TOPROL XL 50 MG PO (07:46)
[2024-05-12] MEDS: ALPHAGAN P 0.15% EYE DROPS 1 DROP BOTH EYES (07:47)
--- NOTE | 2024-05-12 08:28 | PTCARENOTE ---
Assumed care of pt from night RN. Pt received awake and alert, Ox3. VSS, CM shows AF 80's, POX 98%/2L. She denies any pain or discomfort, ambulating in room with 2L NC. Possible tsf to SNF today.
[2024-05-12] MEDS: SPIRIVA RESPIMAT 2.5 MCG 2 PUFF INH (08:31)
--- NOTE | 2024-05-12 09:18 | W.PN.CARDCBS ---
Today's Communication / Plan
-
She is rate controlled AFib. Continue Amiodarone at 200 mg BID for 2 weeks and then reduce to 200 mg daily.
Her Cardizem has been changed this admit to Toprol for rate control. Monitor HR as she had some bradycardia post cardioversion.
Outpt consideration for cardioversion if she remains in afib.
She appears euvolemic. Cont Lasix. Stop Diamox and Aldactone with rising cr.
Monitor BMP as outpt.
Stable for d/c today from cardiac standpoint.
Will arrange outpt cardiac follow up.
Will update family
Impression / Plan
-
.
Addictions Counselor Assistant: Dr. Graham
Impression:
Acute HFpEF
Atrial fibrillation with rapid ventricular response, new dx last admit, s/p STEVEN/CV 05/06/24
SVT with aberrancy versus nonsustained V. tach
COPD on home O2
Chronic hypoxia recently placed on 2L home O2
Mild mitral stenosis with moderate aortic stenosis from echo April 2024
Hypertension
Dyslipidemia
Type 2 diabetes mellitus
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
Microcytic anemia
History of Sjogren's
Echo 08/09/2023: EF 50-55%, mild MR, mild MS, mod with peak/mean gradients 57/34 mmHg, trace AI
Echo 04/28/2024: EF 55-60%, mild conc LVH, normal RV size and function, mild MS peak/mean 17/8 mmHg, mod with peak/mean 54/30 mmHg, mild to mod TR with PAP 48 mmHg
Plan:
She is rate controlled AFib. Continue Amiodarone at 200 mg BID for 2 weeks and then reduce to 200 mg daily.
Her Cardizem has been changed this admit to Toprol for rate control. Monitor HR as she had some bradycardia post cardioversion.
Outpt consideration for cardioversion if she remains in afib.
She appears euvolemic. Cont Lasix. Stop Diamox and Aldactone with rising cr.
Monitor BMP as outpt.
Stable for d/c today from cardiac standpoint.
Will arrange outpt cardiac follow up.
Will update family
Discussed with primary service.
HPI: Zoya is a pleasant 83-year-old female who follows routinely with my colleague Dr. Graham recently seen April 22. She has a past medical history of COPD, hypertension, diabetes, sjogrens syndrome, psoriasis, history of squamous cell right
tonsil cancer status post radiation with mild mitral stenosis with a mean transit mitral gradient of 6 mmHg and moderate aortic stenosis with peak/mean transaortic gradients 57/34 mmHg with low normal LV ejection fraction estimated 50-55% based on
echocardiogram in August 2023. She has had progressive shortness of breath which has required increased doses of Lasix. She is also recently been seen by pulmonary and was recently put on home O2 within the last week. When last seen she was
taking Lasix 20 mg once daily and her weight was 177 pounds. At the time of her office visit no change was made to her Lasix but she was requested to have a repeat echocardiogram to reassess aortic valve disease. [facility] with acute worsening of shortness of breath of the last several days. She denies URI signs or symptoms or fevers. She denies cough.
Progress Note - Addictions Counselor Assistant
Subjective
Date of Service: May 12, 2024
Pt seen and examined. No complaints. No chest pain or shortness of breath.
Objective
Labs:
05/12/24 04:03
05/12/24 04:03
Labs
Hgb 12.7 g/dL (12.0-16.0) 05/12/24 04:03
Hct 42.0 % (37.0-47.0) 05/12/24 04:03
Plt Count 171 10^3/uL (130-400) 05/12/24 04:03
Sodium 136 mmol/L (135-145) 05/12/24 04:03
Potassium 4.0 mmol/L (3.5-5.1) 05/12/24 04:03
BUN 20 mg/dl (7-17) H 05/12/24 04:03
Creatinine 1.1 mg/dL (0.6-1.0) H 05/12/24 04:03
Glucose 113 mg/dl (70-99) H 05/12/24 04:03
Vital Signs and I&O:
Vital Signs
Temp Pulse Resp BP Pulse Ox
97.6 F 82 16 100/70 98
05/12/24 07:03 05/12/24 08:34 05/12/24 08:34 05/12/24 06:55 05/12/24 08:34
Vital Signs
Temp Pulse Resp BP Pulse Ox
97.6 F 82 16 100/70 98
05/12/24 07:03 05/12/24 08:34 05/12/24 08:34 05/12/24 06:55 05/12/24 08:34
Intake & Output
05/10/24 05/11/24 05/12/24 05/13/24
06:59 06:59 06:59 06:59
Intake Total 360 / 360 420 / 420 480 / 480
Output Total 250 / 250 1250 / 1250 1200 / 1200
Balance 110 / 110 -830 / -830 -720 / -720
Physical Exam
Physical Exam
General: No acute distress, AAOX3
Neck: Negative JVD
Heart: Irregularly irregular, Negative S3 positive S1/S2, Negative S4, No murmur
Lungs: CTA b/l, negative wheezes/rales/rhonchi
Abd: Positive BS, NT/ND, neg rebound/rigidity/guarding
Ext: Negative cyanosis/clubbing/edema
Neuro: nonfocal
[2024-05-12 11:10] VITALS: PULSE 75
[2024-05-12 11:47] VITALS: BP 109/47
[2024-05-12 12:00] LABS: Glucose - Point of Care 145 mg/dl (70-99)
[2024-05-12 12:01] VITALS: O2SAT 99
--- NOTE | 2024-05-12 12:18 | CM ---
Reviewed chart. Met with Mrs. Moise and her daughter to review discharge plans. Telephone call to [facility] who confirms ability to accept today if approved by insurance. Telephone call to [facility] assistant office manager Usama to get
auth. Approved five days from 05/12/12 to 05/16/24. Next review due 05/16/24- to [phone]. The auth.number is [id number]. Updated attending physician and nurse. Medical work-up in progress. The discharge plan is to go to [facility] when
medically stable.
--- NOTE | 2024-05-12 13:29 | PTCARENOTE ---
Pt d/c'd to [facility], being transported by [facility]. Report given to BENI Masters at [facility].
--- NOTE | 2024-05-12 15:29 | W.DCSUMMARY ---
Discharge Summary
Discharge Data
Date of Admission: 05/03/24
Date of Discharge: 05/12/24
-
Pending Results: No
Hospital Course
Primary diagnoses:
Secondary diagnoses:
Mildly elevated liver function tests
Chronic hypoxic respiratory insufficiency
Hypomagnesemia
Chronic obstructive pulmonary disease
Essential hypertension
Type 2 diabetes mellitus
Sjogren's syndrome
Psoriasis
Glaucoma
h/o squamous cell right tonsil s/p radiation
Major Depressive Disorder
Anxiety
h/o Pulmonary Hypertension
Restless Leg Syndrome
Iron deficiency anemia
Consultants:
Cardiology
Imaging:
CXR: Left basilar opacity again seen in comparison to recent prior study, most likely representing subsegmental atelectasis and small left pleural effusion. Cannot exclude left basilar pneumonia.
83-year-old female who presented with chief complaint of shortness of breath as outlined in the H&P done on admission. Hospital course per problem list:
Paroxysmal Afib: Patient was admitted with atrial fibrillation with rapid ventricular response. She also periods of atrial flutter. She was placed on a Cardizem drip and then transition to oral Cardizem as well as Lopressor. She underwent
cardioversion on 05/06/24, but then reverted back to A-fib with RVR. She was then placed on oral amiodarone. Her Cardizem was stopped. Her Eliquis was continued.
Acute on chronic HFpEF: This was exacerbated by atrial fibrillation with rapid ventricular spots. Patient was diuresed with IV Lasix. She was transitioned to oral Lasix. She was placed on Diamox for contraction alkalosis. She was also placed on
Aldactone. At the time of discharge the case was discussed with cardiology and was recommended that Aldactone and Diamox be discontinued. Toprol and Jardiance were continued.
Hypothyroidism: The patient was started Levoxyl 25mcg daily and will need TFTs in 4 weeks.
Discharge Plan
-
Patient Disposition: Long Term/SNF
Discharge Diagnosis/Procedures: Atrial fibrillation with rapid ventricular response. Acute on chronic heart failure with preserved ejection fraction
Condition: Good
Diet: Diabetic, Carb Controlled and Other diet
Additional Diets: Fluid restrict to 1200 cc/day
Activity: As tolerated
Driving Restrictions: No driving
Bathing Restrictions: None
Blood Work: LFTs in 2 weeks, thyroid function tests in 3 weeks, prescription from PCP
Specialty Instructions: Weigh Daily- Call MD for wt gain/loss 3 lbs overnight/5 lbs in 1 week
Referrals:
[facility] Duval [Outside]
Asha Dominguez PA-C [Specified Professional Personl] - 06/03/24 3:00 pm (You have a cardiology follow-up appointment at the [place] office with Dr. Graham's physician podiatry assistant, Asha. Please call with questions)
Lindy Olivas MD [Family Provider] - in less than 1 week
Prescriptions:
New
amiodarone 200 mg Tablet
200 mg PO BID Qty: 0 0RF
Rx Instructions:
for 14 days then decrease to 200mg daily
furosemide 40 mg Tablet
40 mg PO BID AT 0800,1600 Qty: 0 0RF
metoprolol succinate 50 mg Tablet Extended Release 24 Hr
50 mg PO BID Qty: 0 0RF
Jardiance 10 mg Tablet
10 mg PO DAILY Qty: 0 0RF
levothyroxine 25 mcg Tablet
25 mcg PO DAILY @ 0600 Qty: 0 0RF
Continued
latanoprost 1 DROP drops
1 drp BOTH EYES HS
metformin 850 MG tablet
850 mg PO DAILY
albuterol sulfate 1 PUFF HFA aerosol inhaler
2 puff inhalation R Q4HPRN PRN (Reason: sob)
brimonidine [Alphagan P] 1 DROP drops
1 drp BOTH EYES BID
tiotropium bromide [Spiriva with HandiHaler] 18 MCG capsule, w/inhalation device
18 mcg inhalation R DAILY
guaifenesin [Mucus Relief ER] 600 MG tablet extended release 12hr
1,200 mg PO DAILY
ropinirole 0.25 MG tablet
0.25 mg PO TID Qty: 90 0RF
azelastine 137 mcg (0.1 %) [place],Non-Aerosol
1 spray INTRANASAL BID
PreserVision AREDS 4,296 mcg-226 mg-90 mg Capsule
1 cap PO BID
ferrous sulfate 27 mg iron Tablet
27 mg PO DAILY
Eliquis 5 mg Tablet
5 mg PO BID Qty: 60 0RF
Discontinued
lorazepam 0.5 MG tablet
0.5 mg PO BIDPRN PRN (Reason: anxiety)
Patient Comments:
05/03/2024: last filled 05/27/21, 30 tabs for 15 days from [facility]
diltiazem HCl [Cardizem CD] 180 mg capsule,extended release 24hr
180 mg PO DAILY Qty: 30 11RF
Discharge Orders:
Discharge Patient (As Directed); Ordered 05/12/24
Ordered By: Wild Stanford
Care Plan Goals
Care Plan Goals:
Problem: Readiness for enhanced knowledge related to diagnosis and treatment plan
Goal: Understand your diagnosis and treatment plan needs, including medications if applicable.
Instructions: Know your diagnosis, underlying causes and treatment plan options, including medications if applicable. Consult with your health care team to learn about your diagnosis and treatment plan, including medications if applicable.
Discharge Date and Time
Discharge Date/Time: 05/12/24 13:31
Print Language: ROMANSH
== END 2024-05-12 13:31 | DRG 291 ==
LOC: IVU 16:23
PROVIDERS: Internal Medicine; Internal Medicine Cardiovascular Disease; Physician Assistant Medical; Registered Nurse; Student in an Organized Health Care Education/Training Program; ADMITTING PHYSICIAN Internal Medicine; CONSULT PHYSICIAN Internal Medicine Cardiovascular Disease; EMERGENCY PHYSICIAN Emergency Medicine; FAMILY PHYSICIAN Family Medicine
DX: I13.0 Hypertensive heart and chronic kidney disease with heart failure and stage 1 through stage 4 chronic kidney disease, or unspecified chronic kidney disease (principal); I50.33 Acute on chronic diastolic (congestive) heart failure; J98.11 Atelectasis; I47.20 Ventricular tachycardia, unspecified; I48.92 Unspecified atrial flutter; I48.0 Paroxysmal atrial fibrillation; Z79.01 Long term (current) use of anticoagulants
CPT/HCPCS: 71046; 74230; 80048; 80053; 80061; 80076; 82248; 82805; 82962; 83735; 83880; 84439; 84443; 85025; 85027; 92610; 92611; 92960; 93005; 93312; 93320; 93325; 94640; 96365; 96375; 97116; 97162; 97166; 97530; 97535; 99285

== ENCOUNTER 2024-07-16 10:00 | Emergency (ER) | payer OTHER, SELFPAY ==
[2024-07-16 10:16] VITALS: BP 119/47
[2024-07-16 10:56] VITALS: BP 137/63
[2024-07-16 11:27] LABS: % Basophils 0.8 % (0-2); % Eosinophils 2.3 % (0-6); % Immature Granulocytes 0.4 % (0-0.5); % Lymphocytes 9.6 % (20.5-51.1); % Monocytes 8.8 % (1.7-9.3); % Neutrophils 78.1 % (42.2-75.2); Absolute Eosinophils 0.1 10^3/uL (0-0.7); Absolute Lymphocytes 0.5 10^3/uL (1.2-3.4); Absolute Monocytes 0.5 10^3/uL (0.1-0.6); Absolute Neutrophils 4.2 10^3/uL (1.4-6.5); Hematocrit 46.4 % (37.0-47.0); Mean Corp Hgb Conc. 32.3 g/dL (33.0-37.0); Mean Corpuscular Hgb 30.7 pg (27.0-31.0); Mean Corpuscular Volume 94.9 fL (81.0-99.0); Mean Platelet Volume 10.2 fL (7.4-10.4); Nucleated Red Blood Cells % 0 %; Platelet Count 150 10^3/uL (130-400); Red Blood Cell Count 4.89 10^6/uL (4.20-5.40); Red Cell Dist. Width 20.4 % (11.5-14.5); White Blood Cell Count 5.3 10^3/uL (4.8-10.8)
[2024-07-16 11:39] LABS: ALT (SGPT) 47 U/L (0-35); AST (SGOT) 72 U/L (14-36); Albumin 4.3 g/dl (3.5-5.0); Alkaline Phosphatase 207 U/L (38-126); Blood Urea Nitrogen 37 mg/dl (7-17); Calcium 9.8 mg/dl (8.4-10.2); Carbon Dioxide 38 mmol/L (22-30); Chloride 90 mmol/L (98-107); Glucose 139 mg/dl (70-99); Potassium 4.3 mmol/L (3.5-5.1); Sodium 139 mmol/L (135-145); Total Bilirubin 1.2 mg/dl (0.2-1.3); Total Protein 7.2 g/dl (6.3-8.2); eGFR > 60.00
--- NOTE | 2024-07-16 11:51 | ED.GENMED ---
History of Present Illness
General
Chief Complaint: Breathing Problem
Source: patient
Exam Limitations: none
Time Seen by Provider: 07/16/24 10:56
Nursing documentation reviewed up to this point in time: agreed with
History of Present Illness
History of Present Illness:
Patient with history of COPD who utilizes oxygen at at bedtime, and as needed during the day, presents to ED secondary to worsening shortness of breath with exertion over the past 3 days. Denies chest pain. Denies nausea or vomiting. Denies
dizziness. Denies fever or chills. Denies coughing. Denies leg pain or swelling. Denies back pain. Denies recent travel or surgery.
Past History
Past History
ED Past Medical History: Cancer (Tonsils and throat), COPD, HTN, Hypercholesterolemia, NIDDM and Other (glaucoma, )
ED Past Surgical History: Other (cataracts)
Social History
Tobacco: Former smoker
Alcohol: None
Personal:
Living: alone
Review of Systems
Review of Systems
Allergies reviewed?: Yes
All Other Systems: ROS reviewed and negative except as documented in HPI and ROS
Constitutional: Reports no symptoms
EENT: Reports no symptoms
Respiratory: Reports trouble breathing; Denies cough
Cardiac: Reports no symptoms
ABD/GI: Reports no symptoms
Musculoskeletal: Reports no symptoms
Skin: Reports no symptoms
Neurological: Reports no symptoms
Phy Exam
Physical Exam
Physical Exam:
Physical Exam
General: no apparent distress, not acutely ill. afebrile
Head: nc/at. eomi
Neck: supple. no meningeal signs.
Heart: s1/s2 regular rate and rhythm, no murmur. equal radial pulses.
Lungs: no acute respiratory distress. clear bilaterally
Abdomen: normal bowel sounds. not tender.
Neuro: alert and oriented. no focal neurological deficits
Skin: no rash
Psychiatric: well kept. interactive and cooperative
Extremities: no edema. no calf tenderness.
Scores
Heart Failure Risk
Heart Failure Risk Score: Not Applicable
Course
Orders/Labs/Results
Orders:
Orders
07/16/24 11:12
Chest [CR Chest - 2 Views ] Urgent
Comment:
Reason For Exam: SOB
07/16/24 11:15
Complete Blood Count/With Diff Urgent
Comprehensive Metabolic Panel Urgent
Magnesium Urgent
Comment: ADD ON
07/16/24 11:19
BNP [NT-proBNP] Urgent
07/16/24 11:57
0.9% Sodium Chloride 500 ml [Nss] 500 ml IV BOLUS
07/16/24 11:59
Electrocardiogram (*1) Urgent
Reason for Study: Shortness of Breath
EKG- Treatment ONCE
07/16/24 12:01
D-Dimer Urgent
07/16/24 12:19
Add On- LAB Urgent
Tests Added?: magnesium
07/16/24 12:25
CT Chest Pe Study Urgent
Comment:
Reason For Exam: ESQUIVEL with elevated d-dimer
07/16/24 14:14
Case Management Consult ONCE
Case Management Consult: VN/Home Care
Abnormal Lab Results
07/16/24 07/16/24
11:15 12:01
MCHC 32.3 L g/dL
(33.0-37.0)
RDW 20.4 H %
(11.5-14.5)
Absolute Lymphs (auto) 0.5 L 10^3/uL
(1.2-3.4)
Neutrophils % 78.1 H %
(42.2-75.2)
Lymphocytes % 9.6 L %
(20.5-51.1)
D-Dimer 1.04 H ug/mlFEU
(0.00-0.50)
Chloride 90 L mmol/L
(98-107)
Carbon Dioxide 38 H mmol/L
(22-30)
BUN 37 H mg/dl
(7-17)
Glucose 139 H mg/dl
(70-99)
Magnesium 1.5 L mg/dl
(1.6-2.3)
AST 72 H U/L
(14-36)
ALT 47 H U/L
(0-35)
Alkaline Phosphatase 207 H U/L
(38-126)
07/16/24 11:15
07/16/24 11:15
Vital Signs
Initial and Last Documented VS:
Initial Vital Signs
Temp Pulse Resp BP Pulse Ox
97.7 F 61 20 119/47 92
07/16/24 10:16 07/16/24 10:16 07/16/24 10:16 07/16/24 10:16 07/16/24 10:16
Last Documented Vital Signs
Temp Pulse Resp BP Pulse Ox
97.7 F 59 19 115/43 98
07/16/24 10:16 07/16/24 14:15 07/16/24 14:15 07/16/24 12:00 07/16/24 14:15
MDM/Problems Addressed
MDM/Problems Addressed:
CT chest obtained secondary to elevated D-dimer with increasingly worsening shortness of breath. CT chest without any acute findings, i.e. pulmonary embolism.
During ambulation ED, patient does noted to become hypoxic, without any significant respiratory distress. Patient states that this has had even at her lead burner office. That is why patient currently has home oxygen, to be used as needed.
Discussed treatment options, including potential admission to the hospital for acute treatment for potential COPD exacerbation. However, at this time, patient feels comfortable going home and would like to be discharged for an outpatient follow-up
with her lead burner. As such, patient will be started on short course of tapered prednisone, along with recommendation to utilize inhaler at home, as well as an outpatient follow-up. Patient to return to ED with worsening symptoms.
An appt made for patient via pulmonary office, tomorrow afternoon.
Patient to be evaluated by case management, for home visiting nurse set up as well as any other potential resources that may be available to the patient.
*EKG
Interpreted by ED Provider?: Yes
EKG Intrepretation Date: 07/16/24
Heart Rate: 55
Rate: bradycardiac
Rhythm: sinus
[place]: normal axis
*Critical Care Note
Total Time (30-74mins, 75-104mins- exclusive of procedures): Not Applicable
ED Attending Note
-
Portions of this chart may have been created with voice recognition software.� Occasional wrong word or��sound alike� substitutions may have occurred due to the inherent limitations of voice recognition software.
Discharge Plan
Departure
Patient Disposition: Home (Routine Discharge)
Date of Disposition: 07/16/24
Time of Disposition: 14:12
Patient with high blood pressure during this ER visit?: No
Discharge Problem:
COPD (chronic obstructive pulmonary disease)
Instructions: Exacerbation of COPD (DC)
Prescriptions:
New
prednisone 10 mg Tablet
See Rx Instructions .ROUTE .COMPLEX Qty: 30 0RF
Rx Instructions:
Take By Mouth:
40 mg daily x3 days, 30 mg daily x3 days,
20 mg daily x3 days, 10 mg daily x3 days.
No Action
latanoprost 1 DROP drops
1 drp BOTH EYES HS
metformin 850 MG tablet
850 mg PO DAILY
albuterol sulfate 1 PUFF HFA aerosol inhaler
2 puff inhalation R Q4HPRN PRN (Reason: sob)
brimonidine [Alphagan P] 1 DROP drops
1 drp BOTH EYES BID
tiotropium bromide [Spiriva with HandiHaler] 18 MCG capsule, w/inhalation device
18 mcg inhalation R DAILY
guaifenesin [Mucus Relief ER] 600 MG tablet extended release 12hr
1,200 mg PO DAILY
ropinirole 0.25 MG tablet
0.25 mg PO TID Qty: 90 0RF
azelastine 137 mcg (0.1 %) [place],Non-Aerosol
1 spray INTRANASAL BID
PreserVision AREDS 4,296 mcg-226 mg-90 mg Capsule
1 cap PO BID
ferrous sulfate 27 mg iron Tablet
27 mg PO DAILY
Eliquis 5 mg Tablet
5 mg PO BID Qty: 60 0RF
amiodarone 200 mg Tablet
200 mg PO BID Qty: 0 0RF
Rx Instructions:
for 14 days then decrease to 200mg daily
furosemide 40 mg Tablet
40 mg PO BID AT 0800,1600 Qty: 0 0RF
metoprolol succinate 50 mg Tablet Extended Release 24 Hr
50 mg PO BID Qty: 0 0RF
Jardiance 10 mg Tablet
10 mg PO DAILY Qty: 0 0RF
levothyroxine 25 mcg Tablet
25 mcg PO DAILY @ 0600 Qty: 0 0RF
Referrals:
Lindy Olivas MD [Family Provider] -
Activity Restrictions/Additional Instructions:
As discussed, please follow-up with your primary care physician and/or lead burner for reevaluation as an outpatient. Your prescription has been sent electronically to [facility] pharmacy in [place].
Interventions
Interventions:
ED- Cardiac Assessment Last Done: 07/16/24 11:12
ED- Pulmonary Assessment Last Done: 07/16/24 11:12
Discharge Date and Time
Print Language: FILIPINO
[2024-07-16 11:54] LABS: NT-proBNP 1270 pg/ml
[2024-07-16 12:00] VITALS: BP 115/43
[2024-07-16] MEDS: NSS 500 IV (12:02)
[2024-07-16 12:23] LABS: D-Dimer 1.04 ug/mlFEU (0.00-0.50)
[2024-07-16 13:10] LABS: Magnesium 1.5 mg/dl (1.6-2.3)
--- NOTE | 2024-07-16 14:27 | CM ---
CM met with patient in room. Patient confirmed that she was recently at [facility]. She was discharged to at [facility] for two weeks respite. She was discharged home with no services. Patient is now agreeable to [facility] for RN only. Patient
expressed multiple frustrations with her disjointed care and poor care experiences. Patient does have oxygen at home, but cannot name the DME provider.
CM sent new referral to [facility] tank setter helper. ESTELLE updated ED MD>
[2024-07-16 14:31] VITALS: BP 124/54
--- NOTE | 2024-07-16 14:57 | VNURNOTE ---
Attempted to meet patient, she had already left ER. Called patient at cell listed, no answer, left message. [facility]
== END 2024-07-16 15:04 | disposition home or self-care (01) ==
LOC: EMR 10:00
PROVIDERS: EMERGENCY PHYSICIAN Emergency Medicine; FAMILY PHYSICIAN Family Medicine
DX: J44.9 Chronic obstructive pulmonary disease, unspecified (principal); I10 Essential (primary) hypertension; E78.00 Pure hypercholesterolemia, unspecified; E11.36 Type 2 diabetes mellitus with diabetic cataract; Z87.891 Personal history of nicotine dependence
CPT/HCPCS: 99284; 71046; 71275; 80053; 83735; 83880; 85025; 85379; 93005; Q9967

== ENCOUNTER → 2025-06-15 12:52 | Outpatient (REF) | payer OTHER, SELFPAY | LOC: RCS 12:52 | PROVIDERS: ATTENDING PHYSICIAN Nuclear Medicine Nuclear Cardiology; FAMILY PHYSICIAN Family Medicine | DX: I48.0 Paroxysmal atrial fibrillation (principal) | CPT/HCPCS: 93306 ==

== ENCOUNTER → 2025-06-29 10:11 | Outpatient (REF) | payer OTHER, SELFPAY | LOC: RAD 10:11 | PROVIDERS: ATTENDING PHYSICIAN Radiology Radiation Oncology; FAMILY PHYSICIAN Family Medicine | DX: C09.9 Malignant neoplasm of tonsil, unspecified (principal) | CPT/HCPCS: 70492; Q9967 ==

== ENCOUNTER 2025-08-09 04:26 | Observation (INO) | payer OTHER, SELFPAY ==
[2025-08-09] VITALS (12 sets, daily range): BP systolic 86–152; BP diastolic 52–85; PULSE 70–80; O2SAT 89–90; BMI 24.2
[2025-08-09 00:58] LABS: AST (SGOT) 74 U/L (14-36); Albumin 4.2 g/dl (3.5-5.0); Alkaline Phosphatase 339 U/L (38-126); Blood Urea Nitrogen 23 mg/dl (7-17); Carbon Dioxide 33 mmol/L (22-30); Chloride 94 mmol/L (98-107); Glucose 473 mg/dl (70-99); Hematocrit 45.3 % (37.0-47.0); Hemoglobin 15.0 g/dL (12.0-16.0); Mean Corp Hgb Conc. 33.1 g/dL (33.0-37.0); Mean Corpuscular Volume 95.2 fL (81.0-99.0); Nucleated Red Blood Cells % 0 %; Platelet Count 138 10^3/uL (130-400); Red Cell Dist. Width 13.9 % (11.5-14.5); Sodium 135 mmol/L (135-145); Total Protein 7.6 g/dl (6.3-8.2); eGFR 54.87
[2025-08-09 01:04] LABS: ALT (SGPT) 62 U/L (0-35); Calcium 9.3 mg/dl (8.4-10.2); Potassium 4.1 mmol/L (3.5-5.1)
[2025-08-09] MEDS: DILAUDID 0.5 MG IV (01:34)
[2025-08-09] MEDS: ZOFRAN 4 MG IV (01:35)
[2025-08-09] MEDS: NSS 1000 IV (01:37)
--- NOTE | 2025-08-09 02:06 | ED.MUSCINJ ---
HPI-Injury
<Marian De La Rosa NP - Last Filed: 08/09/25 21:14>
General
Chief Complaint: Fall
Source: patient
Exam Limitations: none
Time Seen by Provider: 08/09/25 01:11
Nursing documentation reviewed up to this point in time: agreed with
History of Present Illness-Injury
Is this injury a work related problem?: No
Is pt an associate of [facility]/[place]?: No
Initial Injury comments:
Patient states she got up to get a drink of water, lost her balance and fell. Unable to get self up. COmplains of pain to right pelvis, posterior hip. INcident occurred just [employer]. To ED by EMS.
Past History
<Marian De La Rosa STOCK LAYER - Last Filed: 08/09/25 21:14>
Past History
ED Past Medical History: Cancer (Tonsils and throat), COPD, HTN, Hypercholesterolemia, NIDDM and Other (glaucoma, )
ED Past Surgical History: Other (cataracts)
Social History
Tobacco: Former smoker
Alcohol: None
Personal:
Living: alone
Review of Systems
<Marian De La Rosa NP - Last Filed: 08/09/25 21:14>
Review of Systems
Allergies reviewed?: Yes
All Other Systems: ROS reviewed and negative except as documented in HPI and ROS
Constitutional: Reports no symptoms
EENT: Reports no symptoms
Respiratory: Reports no symptoms
Cardiac: Reports no symptoms
ABD/GI: Reports no symptoms
: Reports no symptoms
Musculoskeletal: Reports joint pain (pain right posterior hip and pelvis)
Skin: Reports no symptoms
Neurological: Reports no symptoms
Psychiatric: Reports no symptoms
Musculoskeletal Injury Exam
<Marian De La Rosa NP - Last Filed: 08/09/25 21:14>
Musculoskeletal Injury Exam
Right Posterior Hip:
Pain with Movement?: Moderate
Tender to palpation?: Moderate
Soft tissue swelling?: None
External deformity and angulation?: None
Joint effusion?: None
Contusion?: Moderate
Hematoma-local bleeding into tissue?: None
Crepitus with movement?: No
Joint instability?: No
Malalignment/deformity?: No
Range of motion: Limited
Distal skin color and temperature: normal-warm & good color
Capillary Refill: normal
Normal distal neurovascular exam?: Yes
Peripheral Pulses: posterior tibial (right): 3+ and dorsalis pedis (right): 3+
Phy Exam
<Marian De La Rosa NP - Last Filed: 08/09/25 21:14>
General Physical Exam
General Presentation: moderate distress
General age: appears stated age
General Skin: warm and dry
General Habitus: normal
General Mental: alert
Eye Exam
Eye Exam: PERRL, EOMI, conjunctiva normal and globe normal
Cardiovascular Exam
Cardiovascular Exam: regular rate/rhythm and no edema
Gastrointestinal Exam
Gastrointestinal Exam: non tender and soft
Neurological Exam
Neurological Exam: alert, oriented x3, CN II-XII intact, no motor deficits, no sensory deficits and speech normal
Musculoskeletal Exam
Musculoskeletal Exam: neuro vasc intact
Skin Exam
Skin Exam: normal color, warm/dry and no rash
Psychiatric Exam
Psychiatric Exam: normal mood/affect
Injury Course
<Marian De La Rosa NP - Last Filed: 08/09/25 21:14>
Orders/Labs/Results
Orders:
Orders
08/09/25 00:20
CR Hip - RT w/wo Pel 2-3 Vw* Urgent
Comment:
Reason For Exam: fall, pain
Include a pelvis x-ray?: Yes
08/09/25 00:30
B-Hydroxybutyrate Urgent
Complete Blood Count/With Diff Urgent
Comprehensive Metabolic Panel Urgent
Creatine Phosphokinase Urgent
Comment: ADD ON
GGTP Urgent
Comment: ADD ON
Hepatitis C Antibody Urgent
Comment: ADD ON
08/09/25 01:19
HYDROmorphone [Dilaudid] 0.5 mg IV NOW STA
Ondansetron Injectable [Zofran] 4 mg IV NOW STA
08/09/25 01:20
0.9% Sodium Chloride 1000 ml [Nss] 1,000 ml IV BOLUS
08/09/25 01:32
Type And Crossmatch [Type+Screen] Urgent
08/09/25 01:[address] [CT Pelvis W/o Iv Contrast] Urgent
Comment:
Reason For Exam: pain right hip/pelvis, unable to bear weight
08/09/25 02:08
Insulin Aspart [NOVOLOG vial] 5 units SC NOW STA
08/09/25 03:29
Urinalysis Reflex To Culture Urgent
Date Specimen was Collected: 08/09/25
Time Specimen was Collected: 03:17
Urine Microscopic Reflex Cult Urgent
Urine Culture Urgent
SUZIE Source: U
Specimen Description:
Date Specimen was Collected: 08/09/25
Time Specimen was Collected: 03:17
08/09/25 04:18
Admit/Transfer Patient As Directed
Co-Sign Provider:
Level of Care: Observation services
Assign to:: Medical/Surgical
Physician / Group: Robert
Diagnosis: Pelvic Fracture, Hyperglycemia
PRN Pain Medication Management As Directed
May give lesser potent ordered pain med per pt: Yes
preference::
Protocol:: Medication orders for pain may be administered in a
manner that supports deferring to patient preference
when the pt is:
- Requesting an ordered lesser potent pain medication.
Least to most potent pain medications are defined
as: acetaminophen < NSAID < tramadol < opioids
(morphine, oxycodone, hydromorphone).
- Requesting a lesser dose of the same medication IF
ORDERED.
- Requesting a less intrusive route of administration
if both routes are prescribed by the provider (PO <
IV).
08/09/25 04:19
Code Status As Directed
Resuscitation Status: Full Code
08/09/25 Breakfast
1800 calorie (15 carb) Diabetic
At Your Request: Full Participation
08/09/25 07:55
Dextrose 50%-Water [Dextrose 50% Syringe] 12.5 grams IV [id number] PRN
Glucagon [GlucaGen] 1 mg IM PRN PRN
Insulin Aspart Corrective Mod [Novolog Flexpen-Moderate Resistance] See Protocol SC AC
Lactated Ringers [Lr] 1,000 ml IV 80 mls/hr
Morphine Sulfate 2 mg IV Q4HPRN PRN
Polyethylene Glycol Powder [Miralax] 17 grams PO DAILY PRN
Tramadol HCl [Ultram] 25 mg PO Q6HPRN PRN
08/09/25 07:55
Case Management Consult ONCE
Case Management Consult: Discharge Planning
Activity As Directed
Activity Level: Ambulate
With Assistance
Bedside Glucose Monitoring As Directed
Frequency: AC&HS
Additional Instructions:: Change to q6h if pt on TPN, tube feeding or not eating
I/O [Intake/ Output] As Directed
Frequency: Per unit guidelines
Pneumatic Compression Sleeves As Directed
Type: Knee high
Vital Signs As Directed
Frequency: Per unit guidelines
Weight As Directed
Frequency: Daily
Oxygen Therapy [O2 Therapy] [RESP] Routine
Titrate/Wean O2 to maintain O2 sat greater than (%): 94
Ot Eval And Treat Routine
PT Consult [Pt Eval And Treat] Routine
Activity Level: Ambulate
With Assistance
DX Deep Vein Thrombosis Video Routine
08/09/25 08:00
Acetaminophen [Tylenol] 1,000 mg PO TID
08/10/25 06:00
Basic Metabolic Panel IN AM
Complete Blood Count/No Diff IN AM
Glycohemoglobin (HgbA1c) IN AM
Abnormal Lab Results
08/09/25 08/09/25
00:30 03:29
MCH 31.5 H pg
(27.0-31.0)
MPV 10.7 H fL
(7.4-10.4)
Abs Immat Gran (auto) 0.1 H 10^3/uL
(0-0.05)
Absolute Lymphs (auto) 0.6 L 10^3/uL
(1.2-3.4)
Immature Gran % 1.4 H %
(0-0.5)
Neutrophils % 80.6 H %
(42.2-75.2)
Lymphocytes % 10.3 L %
(20.5-51.1)
Chloride 94 L mmol/L
(98-107)
Carbon Dioxide 33 H mmol/L
(22-30)
BUN 23 H mg/dl
(7-17)
Glucose 473 H* mg/dl
(70-99)
GGT 317 H U/L
(12-43)
AST 74 H U/L
(14-36)
ALT 62 H U/L
(0-35)
Alkaline Phosphatase 339 H U/L
(38-126)
Leukocyte Esterase Rfl 1+ A
(Negative)
Urine Bacteria (Reflex) Many A
(Negative)
Urine Yeast Few A
(Negative)
Urine Glucose 4+ A
(Negative)
08/09/25 00:30
08/09/25 00:30
<Yessica Ruthann, DO - Last Filed: 08/09/25 02:13>
Orders/Labs/Results
Orders:
Orders
08/09/25 00:20
CR Hip - RT w/wo Pel 2-3 Vw* Urgent
Comment:
Reason For Exam: fall, pain
Include a pelvis x-ray?: Yes
08/09/25 00:30
B-Hydroxybutyrate Urgent
Complete Blood Count/With Diff Urgent
Comprehensive Metabolic Panel Urgent
Creatine Phosphokinase Urgent
Comment: ADD ON
GGTP Urgent
Comment: ADD ON
Hepatitis C Antibody Urgent
Comment: ADD ON
08/09/25 01:19
HYDROmorphone [Dilaudid] 0.5 mg IV NOW STA
Ondansetron Injectable [Zofran] 4 mg IV NOW STA
08/09/25 01:20
0.9% Sodium Chloride 1000 ml [Nss] 1,000 ml IV BOLUS
08/09/25 01:32
Type And Crossmatch [Type+Screen] Urgent
08/09/25 01:[address] [CT Pelvis W/o Iv Contrast] Urgent
Comment:
Reason For Exam: pain right hip/pelvis, unable to bear weight
08/09/25 02:08
Insulin Aspart [NOVOLOG vial] 5 units SC NOW STA
08/09/25 03:29
Urinalysis Reflex To Culture Urgent
Date Specimen was Collected: 08/09/25
Time Specimen was Collected: 03:17
Urine Microscopic Reflex Cult Urgent
Urine Culture Urgent
SUZIE Source: U
Specimen Description:
Date Specimen was Collected: 08/09/25
Time Specimen was Collected: 03:17
08/09/25 04:18
Admit/Transfer Patient As Directed
Co-Sign Provider:
Level of Care: Observation services
Assign to:: Medical/Surgical
Physician / Group: Robert
Diagnosis: Pelvic Fracture, Hyperglycemia
PRN Pain Medication Management As Directed
May give lesser potent ordered pain med per pt: Yes
preference::
Protocol:: Medication orders for pain may be administered in a
manner that supports deferring to patient preference
when the pt is:
- Requesting an ordered lesser potent pain medication.
Least to most potent pain medications are defined
as: acetaminophen < NSAID < tramadol < opioids
(morphine, oxycodone, hydromorphone).
- Requesting a lesser dose of the same medication IF
ORDERED.
- Requesting a less intrusive route of administration
if both routes are prescribed by the provider (PO <
IV).
08/09/25 04:19
Code Status As Directed
Resuscitation Status: Full Code
08/09/25 Breakfast
1800 calorie (15 carb) Diabetic
At Your Request: Full Participation
08/09/25 07:55
Dextrose 50%-Water [Dextrose 50% Syringe] 12.5 grams IV [id number] PRN
Glucagon [GlucaGen] 1 mg IM PRN PRN
Insulin Aspart Corrective Mod [Novolog Flexpen-Moderate Resistance] See Protocol SC AC
Lactated Ringers [Lr] 1,000 ml IV 80 mls/hr
Morphine Sulfate 2 mg IV Q4HPRN PRN
Polyethylene Glycol Powder [Miralax] 17 grams PO DAILY PRN
Tramadol HCl [Ultram] 25 mg PO Q6HPRN PRN
08/09/25 07:55
Case Management Consult ONCE
Case Management Consult: Discharge Planning
Activity As Directed
Activity Level: Ambulate
With Assistance
Bedside Glucose Monitoring As Directed
Frequency: AC&HS
Additional Instructions:: Change to q6h if pt on TPN, tube feeding or not eating
I/O [Intake/ Output] As Directed
Frequency: Per unit guidelines
Pneumatic Compression Sleeves As Directed
Type: Knee high
Vital Signs As Directed
Frequency: Per unit guidelines
Weight As Directed
Frequency: Daily
Oxygen Therapy [O2 Therapy] [RESP] Routine
Titrate/Wean O2 to maintain O2 sat greater than (%): 94
Ot Eval And Treat Routine
PT Consult [Pt Eval And Treat] Routine
Activity Level: Ambulate
With Assistance
DX Deep Vein Thrombosis Video Routine
08/09/25 08:00
Acetaminophen [Tylenol] 1,000 mg PO TID
08/10/25 06:00
Basic Metabolic Panel IN AM
Complete Blood Count/No Diff IN AM
Glycohemoglobin (HgbA1c) IN AM
Abnormal Lab Results
08/09/25 08/09/25
00:30 03:29
MCH 31.5 H pg
(27.0-31.0)
MPV 10.7 H fL
(7.4-10.4)
Abs Immat Gran (auto) 0.1 H 10^3/uL
(0-0.05)
Absolute Lymphs (auto) 0.6 L 10^3/uL
(1.2-3.4)
Immature Gran % 1.4 H %
(0-0.5)
Neutrophils % 80.6 H %
(42.2-75.2)
Lymphocytes % 10.3 L %
(20.5-51.1)
Chloride 94 L mmol/L
(98-107)
Carbon Dioxide 33 H mmol/L
(22-30)
BUN 23 H mg/dl
(7-17)
Glucose 473 H* mg/dl
(70-99)
GGT 317 H U/L
(12-43)
AST 74 H U/L
(14-36)
ALT 62 H U/L
(0-35)
Alkaline Phosphatase 339 H U/L
(38-126)
Leukocyte Esterase Rfl 1+ A
(Negative)
Urine Bacteria (Reflex) Many A
(Negative)
Urine Yeast Few A
(Negative)
Urine Glucose 4+ A
(Negative)
08/09/25 00:30
08/09/25 00:30
<Marian De La Rosa STOCK LAYER - Last Filed: 08/09/25 21:14>
*Pulse Oximetry
SaO2: 95
Oxygen Mode of Delivery: Room air
Patient hypoxic: no
*Critical Care Note
Total Time (30-74mins, 75-104mins- exclusive of procedures): Not Applicable
<Marian De La Rosa NP - Last Filed: 08/09/25 21:14>
Update Note
Update Note:
Patient to ED after fall at home tonight. Fell onto her right side. COmplains of pain to right posterior hip, unable to bear weight. Xray reviewed. No evidence of fracture on xray. Sent for CT. CT results pending. Still unable to bear weight
despite pain medications. Will admit to hospitalist for right hip pain, ambulatory dysfunction.
Blood sugar elevated on arrival to ED. Takes jardiance and reports compliance with med however her diet is unpredictable and she is not checking her blood sugar at home. Given IVF, 5mg sc novolog. WIll recheck sugar following IV infusion.
ED Attending Note
<Marian De La Rosa NP - Last Filed: 08/09/25 21:14>
-
Portions of this chart may have been created with voice recognition software.� Occasional wrong word or��sound alike� substitutions may have occurred due to the inherent limitations of voice recognition software.
<Yessica Beavers DO - Last Filed: 08/09/25 02:13>
ED Attending Note
Patient seen and examined by attending physician: Yes
I performed the substantive portion of visit, reviewed & personally made and approve the management plan that is documented in note by myself or MATTY.: Yes
I performed a history and physical exam of patient and discussed management with resident, I reviewed resident's note and agree with documented findings and plan of care.: Yes
ED Attending Note:
84-year-old female with history of diabetes presenting to the emergency department after a fall. Patient reports she tripped prior to arrival, landed on her right hip with subsequent pain. She has since been unable to ambulate. Does note that she
struck her head, however denies any significant pain, denies blood thinners, denies loss of consciousness. She notes pain in the right gluteal region and the right hip. Denies numbness or tingling. Denies additional injuries. Vital signs
significant for mild tachycardia.
On exam, patient is awake, alert, oriented. No signs of head trauma. On examination of the right lower extremity. No obvious deformity, however range of motion limited at the hip secondary to pain. Distal sensation and pulses intact. Concern
for hip versus pelvic fracture, given that patient unable to bear weight. Plan for x-ray imaging as well as laboratory analysis.
02:00 - Labs show hyperglycemia without evidence of DKA. Patient notes that she does not check her sugars and has been eating a lot of carbohydrates and sugars. Will give IV fluids and insulin. Initial x-ray of the hip without obvious fracture.
This reason we will proceed with CT of the pelvis to ensure no occult fracture of the pelvis or hip
Discharge Plan
Departure
Patient Disposition: Admit
Date of Disposition: 08/09/25
Time of Disposition: 03:06
Presentation/result/management discussed w/ accepting MD/DO: Hospitalist
Patient with high blood pressure during this ER visit?: No
Condition: Fair
Covid-19: Not Applicable
Discharge Problem:
Ambulatory dysfunction, Acute hip pain
Interventions
Interventions:
*Risk Screen - Suicide Last Done: 08/09/25 00:11
*General Assessment Last Done: 08/09/25 00:11
*Neglect/Abuse Screening Last Done: 08/09/25 00:11
*ED- Fall Risk Assessment Last Done: 08/09/25 06:01
*ED COVID-19 Vaccine History Last Done: 08/09/25 01:20
*ED Influenza Vaccine History Last Done: 08/09/25 01:20
*Nursing Disposition Last Done: 08/09/25 06:16
ED-Musculoskeletal Assessment Last Done: 08/09/25 01:20
ED- Neurological Assessment Last Done: 08/09/25 01:20
ED-Skin Assessment Last Done: 08/09/25 01:20
Discharge Date and Time
Discharge Date/Time: 08/09/25 06:17
[2025-08-09] MEDS: NOVOLOG vial 5 UNITS SC (02:33)
[2025-08-09 03:42] LABS: Urine Character Slightly Cloudy (Clear)
[2025-08-09 03:50] LABS: Urine Squamous Cell 16-20 /LPF (Few)
[2025-08-09 03:51] LABS: Urine Red Blood Cell 0-2 /HPF (0-2)
--- NOTE | 2025-08-09 04:26 | HPS.HSE ---
Family Physician
-
Family Physician: Lindy Olivas
Chief Complaint
-
Fall, R Hip Pain
History of Present Illness
Patient is an 84y F with PMH significant for COPD, hypertension and paroxysmal A-Fib who presents to ED complaining of right hip pain s/p [id number] at home this evening. Patient states that she went to get a glass of water and slipped on a
rug falling onto her R side. She did strike the back of her head on the floor as well - but denies any LOC or any current headache. Patient noted immediate pain in the R hip area and had significant difficulty getting up / calling for help. She
ultimately did so and was brought to the ED for further evaluation and treatment.
Patient denies any prodrome of lightheadedness, dizziness, chest pain, etc prior to her fall.
She states that she has felt fairly well until this evening's events.
Medical History
Past Medical History
Past Medical History: Reports Other
Additional Past Medical History:
Hyperlipidemia
COPD
Type 2 diabetes
Major depression
Hypertension
Stage II chronic kidney disease
Sjogren's syndrome
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
Interstitial lung disease
Glaucoma
Aortic stenosis
Restless leg syndrome
Diastolic heart failure
Past Surgical History: Reports Other
Additional Past Surgical History:
Cataract extraction
Social History
Tobacco: Former Smoker
Alcohol: None
Drug: None
Living: With Family
Family History
Family History: Not pertinent
Allergies / Home Medications
Allergies reflects when Allergies were last updated in [employer].
Home Medications with original date entered in [employer]
Allergy/Medication List:
Patient does not know her current medications / doses.
Will need formal med rec in the AM.
If medication reconciliation has not been performed, why?: Medication List N/A
Review of Systems
-
History Source: Patient
A 12 point ROS was completed and negative except as noted: Yes
Constitutional: Reports Fatigue; Denies Fever or Chills
EENT: Reports Sore Throat (chronic s/p cancer/ XRT)
Respiratory: Denies Cough or Trouble Breathing
Cardiac: Denies Chest Pain or Palpitations
Abdomen/GI: Denies Abdominal Pain, Nausea, Vomiting or Diarrhea
: Denies Dysuria, Frequency or Flank Pain
Musculoskeletal: Reports Joint Pain (R hip); Denies Edema
Neurological: Denies Dizzy, Headache, Weakness or Numbness
Physical Exam
Vital Signs
Vital Signs
Temp Pulse Resp BP Pulse Ox
98.3 F 104 26 102/55 95
08/09/25 00:11 08/09/25 00:11 08/09/25 00:11 08/09/25 00:11 08/09/25 02:06
Physical Exam
General: Other (84y F in mild distress due to pain.)
HEENT: Other (Dry MM. Neck supple.)
Respiratory: Clear; No Wheezes, Rales or Rhonchi
Cardiac: S1/S2, Regular Rhythm and Murmur (II/ MARIANA)
GI: Soft, Non Tender, Non Distended and Normal Bowel Sounds
Musculoskeletal: No Clubbing, No Cyanosis, No Edema and Other (Pain with ROM at the R hip.)
Neuro: AO x 3
Laboratory Results
-
08/09/25 00:30
08/09/25 00:30
Laboratory Results
Total Bilirubin 1.1 mg/dl (0.2-1.3) 08/09/25 00:30
AST 74 U/L (14-36) H 08/09/25 00:30
ALT 62 U/L (0-35) H 08/09/25 00:30
Alkaline Phosphatase 339 U/L (38-126) H 08/09/25 00:30
Impression/Plan
-
A/P: Patient is an 84y F with PMH significant for HTN, A-Fib and COPD who presents to ED complaining of R hip pain s/p [id number] at home.
Pelvic Fractures
Fall at Home
- Observe overnight for further evaluation and treatment.
- CT scan in the ED shows minimally displaced pelvic fractures including R superior, inferior and R sacral ala. Small associated hematoma.
- Patient notes that she stopped taking Eliquis several months ago due to hemorrhoidal bleeding / patient preference.
- Pain control / supportive care.
- PT eval in AM - weight bearing as tolerated.
- CM eval - ? SNF placement short term.
- Follow for any new / worsening symptoms.
DM-II with Hyperglycemia
- Normal anion gap.
- IVFs / sliding scale insulin for improvement.
- Patient admits to poor dietary compliance.
- Follow glucose and cover with SSI.
- Update A1C.
Paroxysmal Atrial Fibrillation
Chronic HFpEF
- Stable. Not on OAC.
- Need formal med rec in AM and then resume usual meds if appropriate.
- Follow I/Os, daily weights, etc.
CKD II
- Stable. Renal function is at / near known baseline.
COPD without Acute Exacerbation
- Stable. Resume usual inhaled meds once reconciled.
- Albuterol PRN.
History of Squamous Cell Cancer of the Tonsil s/p XRT
- Chronic sore throat / dry throat.
DVT Prophylaxis: SCDs
Code Status: Full
[2025-08-09 05:29] LABS: Glucose - Point of Care 257 mg/dl (70-99)
[2025-08-09 07:49] LABS: Glucose 220 mg/dl (70-99)
[2025-08-09 07:51] LABS: Glucose - Point of Care 221 mg/dl (70-99)
--- NOTE | 2025-08-09 08:24 | W.PN.HOSP.TC ---
Addendum entered and electronically signed by Vinnie Haskins MD 08/09/25 08:26:
#Asymtomatic bacteriuria
no pyuria
no dysuria
no fever and no leukocytosis
follow up off Abx clinically
Original Note:
Today's Communication/Plan
-
See PN
Assessment / Plan
Assessment / Plan
84yo F with PMHX of Afib, not on AC any more as per patient, Sjogrens, psoriasis, MDD, RLS, BRIGETTE, pulmonary HTN, throat CA, chronic hypoxic resiratory failure on home o2 (does not remember flow), DM, glaucoma came from home after the fall w/o LOC due
to severe RLE pain on ambulation, found Mildly displaced R superior pubic ramus, inferor pubic ramus and sacral ala.
Patient did hit the back of her head, but no bruising, headache or neurological deficit nted, no new neck pain and neck ROM preserved normal
A/P:
#Mildly displaced R superior pubic ramus, inferor pubic ramus and sacral ala.
Ortho consult
PT/OT
pain mgmt
#DM type 2 with unspecified complications
#Hyperglycemia on admission
Hyperglycemia resolved
Accuchecks, Insulin SS, DM diet
#Chronic transaminitis
#Chronic alk. phos elevation
No RUQ pain
Check CPK, Hep C, GGT
#COPD with chronic hypoxic respiratory failure
#Hx of Afib, paroxytsmal, not on AC
#RLS
#Pulmonary HTN
#Hx of throat CA
#Glaucoma
cont home meds
COnt to follow with established ENT as scheduled before
DVT ppx lovenox
Full code
I have spent at least 54min reviewing chart, test results, communication with consultants and providing direct patient care
Anticipated Discharge: Within 24 hours
Subjective/Interval History
-
Date of Service: August 09, 2025
Objective Data
-
Labs:
Laboratory Results
08/09/25 08/09/25
00:30 07:15
WBC 5.9
Hgb 15.0
Hct 45.3
Plt Count 138
Sodium 135
Potassium 4.1
Chloride 94 L
Carbon Dioxide 33 H
BUN 23 H
Creatinine 1.0
Glucose 473 H* 220 H
Calcium 9.3
Total Bilirubin 1.1
AST 74 H
ALT 62 H
Alkaline Phosphatase 339 H
Vital Signs:
Vital Signs
Temp Pulse Resp BP Pulse Ox
98.1 F 76 16 135/65 97
08/09/25 07:10 08/09/25 07:10 08/09/25 07:10 08/09/25 07:10 08/09/25 07:10
Review of Systems
-
History Source: Patient
All other systems: Reviewed and negative
Musculoskeletal: Reports Other (RLE pain)
Physical Exam
-
General: Comfortable
HEENT: Normocephalic
Respiratory: Clear to Auscultation
Cardiac: Regular Rhythm
GI: Soft, Nontender and Nondistended
Musculoskeletal: No Clubbing, No Cyanosis and No Edema
Neuro: Awake, Alert, Oriented and AO x 3
Psych: Calm
[2025-08-09 08:35] LABS: GGTP 317 U/L (12-43)
[2025-08-09] MEDS: TYLENOL 1000 MG PO ×3 (08:51→21:18)
[2025-08-09] MEDS: ULTRAM 25 MG PO ×2 (08:51→21:25)
[2025-08-09] MEDS: NOVOLOG FLEXPEN-MODERATE RESISTANCE 3 UNITS SC (08:52)
[2025-08-09 09:00] LABS: Hepatitis C Antibody Negative (Negative)
--- NOTE | 2025-08-09 09:50 | CON.ORTHO ---
Consultation
-
Date/Time Consultation Requested: 08/09/2025 0713
Date/Time Consultation Performed: 08/09/2025 0830
Requesting Provider: Dr. Vinnie Haskins
Performing Provider: MARGARET Taylor
Reason for Consultation: pelvic ring fracture
Consultation - Orthopedics
History
84-year-old female presenting to [facility] emergency room after mechanical fall sustained at her home. She reports a slip of her right leg forward and falling back into the more the gluteal side. She reports immediate discomfort and difficulty
bearing weight and was brought to the ER for further evaluation. She reports she has no pain at rest, only pain when trying to bear weight deep into the pelvic area. Denies any prodromal pain or chronic symptoms.
Allergies / Home Medications
Past Medical History
Past Medical History: Reports Other
Additional Past Medical History:
Hyperlipidemia
COPD
Type 2 diabetes
Major depression
Hypertension
Stage II chronic kidney disease
Sjogren's syndrome
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
Interstitial lung disease
Glaucoma
Aortic stenosis
Restless leg syndrome
Diastolic heart failure
Past Surgical History: Reports Other
Additional Past Surgical History:
Cataract extraction
Social History
Tobacco: Former Smoker
Alcohol: None
Drug: None
Living: With Family
Community ambulator with a cane at baseline
Family History
Family History: Not pertinent
Allergy/AdvReac Type Severity Reaction Status Date / Time
codeine Allergy dizzy, Verified 07/16/24 10:19
feels
'fuzzy'
latex Allergy Unknown Verified 07/16/24 10:19
lisinopril Allergy Unknown Verified 07/16/24 10:19
simvastatin Allergy Unknown Verified 07/16/24 10:19
�Medication �Instructions �Recorded
albuterol sulfate 90 mcg/actuation 2 puff inhalation R Q4HPRN PRN sob 02/18/21
aerosol inhaler
brimonidine 0.15 % eye drops 1 drp BOTH EYES BID Eye Condition 02/18/21
(Alphagan P)
guaifenesin 600 mg tablet, 1,200 mg PO DAILY Congestion 02/18/21
extended release 12 hr (Mucus
Relief ER)
latanoprost 0.005 % eye drops 1 drp BOTH EYES HS Eye condition 02/18/21
metformin 850 mg tablet 850 mg PO DAILY Diabetes 02/18/21
tiotropium bromide 18 mcg capsule 18 mcg inhalation R DAILY 02/18/21
with inhalation device (Spiriva Lung/breathing issues
with HandiHaler)
ropinirole 0.25 mg tablet 0.25 mg PO TID #90 tabs 02/22/21
azelastine 137 mcg (0.1 %) nasal 1 spray intranasal BID Allergies 04/27/24
spray
ferrous sulfate 27 mg iron tablet 27 mg PO DAILY Supplement 04/27/24
vitamins A,C,G-vdwz-yactto 4,296 1 cap PO BID Supplement 04/27/24
mcg-226 mg-90 mg capsule
(PreserVision AREDS)
apixaban 5 mg tablet (Eliquis) 5 mg PO BID #60 tabs 04/29/24
amiodarone 200 mg tablet 200 mg PO BID #0 tabs 05/12/24
empagliflozin 10 mg tablet 10 mg PO DAILY #0 tabs 05/12/24
(Jardiance)
furosemide 40 mg tablet 40 mg PO BID AT 0800,1600 #0 tabs 05/12/24
levothyroxine 25 mcg tablet 25 mcg PO DAILY @ 0600 #0 tabs 05/12/24
metoprolol succinate 50 mg 50 mg PO BID #0 tabs 05/12/24
tablet,extended release 24 hr
prednisone 10 mg tablet See Rx Instructions .Route 07/16/24
.COMPLEX #30 tabs
Vital Signs / Lab Results
Temp Pulse Resp BP Pulse Ox
98.1 F 76 16 135/65 97
08/09/25 07:10 08/09/25 07:10 08/09/25 07:10 08/09/25 07:10 08/09/25 07:10
focused examination of the pelvis and right lower extremity shows skin is intact with no erythema edema or ecchymosis. She is nontender about the greater trochanteric area. No pain with logroll. Neurovascular intact L3-S1. Nontender throughout
the knee and distally. Reports deep pelvic pain only with weightbearing.
Independent review of x-rays taken of the right hip and pelvis how age-indeterminate fracture of the inferior and superior rami. No significant hip arthrosis.
CT scan performed of the pelvis with independent review shows a nondisplaced fracture of the right sacral taya as well as nondisplaced fractures acute of the superior and inferior pubic rami the right side. No evidence of femur fracture
08/09/25 00:30
08/09/25 07:15
Assessment / Plan
84-year-old female mechanical fall and date of injury [address] scan showing acute fractures of the superior and inferior pubic rami as well as nondisplaced fractures of the sacral taya
- Discussed fracture patterns with patient which are stable and are amenable towards nonoperative treatment. Recommend weightbearing as tolerated with assist devices with PT/OT for discharge planning
- Discussed expectations with patient. Will plan for outpatient follow-up in 4 weeks from the date of injury for repeat x-rays and clinical exam, sooner if her symptoms worsen
- Diet, pain, and DVT prophylaxis per primary
Discharge information completed. Orthopedic surgery will follow peripherally at this time
[2025-08-09 13:05] LABS: Glucose - Point of Care 329 mg/dl (70-99)
[2025-08-09] MEDS: NOVOLOG FLEXPEN-MODERATE RESISTANCE 7 UNITS SC (13:17)
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
[2025-08-09] MEDS: REQUIP 0.25 MG PO ×2 (16:14→19:59)
[2025-08-09] MEDS: LASIX 40 MG PO (16:14)
[2025-08-09 17:03] LABS: Glucose - Point of Care 267 mg/dl (70-99)
[2025-08-09] MEDS: NOVOLOG FLEXPEN-MODERATE RESISTANCE 5 UNITS SC (17:30)
[2025-08-09] MEDS: LOVENOX 40 MG SC (17:35)
[2025-08-09] MEDS: OCUVITE SOFTGEL 1 CAP PO (19:54)
[2025-08-09] MEDS: ALPHAGAN 0.2% EYE DROPS 1 DROP BOTH EYES (19:55)
[2025-08-09] MEDS: TOPROL XL PO (20:15)
[2025-08-09 21:18] LABS: Glucose - Point of Care 186 mg/dl (70-99)
[2025-08-09] MEDS: XALATAN OPHTHALMIC SOLUTION 1 DROP BOTH EYES (21:18)
[2025-08-09] MEDS: PACERONE 200 MG PO (21:18)
[2025-08-10] VITALS (7 sets, daily range): BP systolic 99–135; BP diastolic 45–91; PULSE 84; O2SAT 97; BMI 21.7
--- NOTE | 2025-08-10 05:28 | PTCARENOTE ---
Pt. had 10 beat run of v-tach on the quality assurance monitor @4357. Pt. asymptomatic and VSS. House [employer]ICE SUPERVISOR notified, magnesium added to morning labs.
[2025-08-10] MEDS: SYNTHROID 25 MCG PO (06:04)
[2025-08-10 07:22] LABS: Hematocrit 43.8 % (37.0-47.0); Hemoglobin 14.0 g/dL (12.0-16.0); Mean Corp Hgb Conc. 32.0 g/dL (33.0-37.0); Mean Corpuscular Volume 99.8 fL (81.0-99.0); Red Cell Dist. Width 13.9 % (11.5-14.5)
[2025-08-10 07:23] LABS: Blood Urea Nitrogen 17 mg/dl (7-17); Calcium 8.6 mg/dl (8.4-10.2); Carbon Dioxide 37 mmol/L (22-30); Chloride 96 mmol/L (98-107); Estimated Creatinine Clearance 49 ml/min; Glucose 171 mg/dl (70-99); Magnesium 2.2 mg/dl (1.6-2.3); Potassium 4.2 mmol/L (3.5-5.1); Sodium 136 mmol/L (135-145); eGFR > 60.00
[2025-08-10] MEDS: SPIRIVA RESPIMAT 2.5 MCG 2 PUFF INH (07:31)
[2025-08-10 07:53] LABS: Glucose - Point of Care 164 mg/dl (70-99)
[2025-08-10 08:41] LABS: Platelet Count 97 10^3/uL (130-400)
[2025-08-10] MEDS: ALPHAGAN 0.2% EYE DROPS 1 DROP BOTH EYES ×2 (08:44→20:12)
[2025-08-10] MEDS: NOVOLOG FLEXPEN-MODERATE RESISTANCE 1 UNITS SC (08:44)
[2025-08-10] MEDS: TYLENOL 1000 MG PO ×3 (08:46→22:19)
[2025-08-10] MEDS: OCUVITE SOFTGEL 1 CAP PO ×2 (08:46→20:04)
[2025-08-10] MEDS: FEOSOL 325 MG PO (08:46)
[2025-08-10] MEDS: FARXIGA 10 MG PO (08:46)
[2025-08-10] MEDS: REQUIP 0.25 MG PO ×3 (08:46→22:19)
[2025-08-10] MEDS: TOPROL XL 50 MG PO ×2 (08:46→20:04)
[2025-08-10] MEDS: PACERONE 200 MG PO ×2 (08:47→20:04)
[2025-08-10] MEDS: LASIX 40 MG PO ×2 (08:47→16:53)
[2025-08-10 08:51] LABS: Glycohemoglobin (HgbA1c) 9.6 % (4.0-5.6)
--- NOTE | 2025-08-10 10:46 | CM ---
Addendum entered by Juan J Kelley 08/10/25 15:15:
[facility] denied a referral.
CM spoke to pt's son Josh and daughter Kamaljit [phone] and they requrested follwoing SNFs: [facility] and [facility].
A referral to above SNFs made. Awaiting for determination
D/C plan: preferred SNF.
Original Note:
CM following re: discharge planning.
Reviewed pt's chart, met with pt.
Pt is OBS status admission. OBS status reviewed with the pt, PIZANO letter signed, placed on chart, pt has a copy.
PT and OT recommending SNF level of care. A referral to [facility] and [facility] noted. [facility] offered a bed. [facility] reviewing. CM spoke to [facility] directory clerk and she stated their clinical liaison is reviewing the referral.
Pt has been notified that [facility] offered a bed and pt stated her main preference is [facility].
Awaiting for [facility] from [facility].
D/C plan: [facility].
CM will follow with discharge plan updates as hospitalization progresses
--- NOTE | 2025-08-10 12:04 | W.PN.HOSP.TC ---
Today's Communication/Plan
-
monitor vitals
see plan
increase Synthroid
PT/OT
dc planning
Assessment / Plan
Assessment / Plan
84yo F with PMHX of Afib, not on AC any more as per patient, Sjogrens, psoriasis, MDD, RLS, BRIGETTE, pulmonary HTN, throat CA, chronic hypoxic resiratory failure on home o2 (does not remember flow), DM, glaucoma came from home after the fall w/o LOC due
to severe RLE pain on ambulation, found Mildly displaced R superior pubic ramus, inferor pubic ramus and sacral ala.
Patient did hit the back of her head, but no bruising, headache or neurological deficit nted, no new neck pain and neck ROM preserved normal
A/P:
#Mildly displaced R superior pubic ramus, inferior pubic ramus and sacral ala.
Ortho following
PT/OT
pain mgmt
outpatient orthopedic follow-up in 4 weeks from the date of injury for repeat x-rays and clinical exam, sooner if her symptoms worsen
weightbearing as tolerated with assist devices
#DM type 2 with unspecified complications
#Hyperglycemia on admission
Hyperglycemia resolved
Accuchecks, Insulin SS, DM diet
#Chronic transaminitis
#Chronic alk. phos elevation
No RUQ pain
Thrombocytopenia
Monitor
Hypothyroidism
TSH elevated, increase Synthroid. Repeat TSH with free T4 outpatient
#COPD with chronic hypoxic respiratory failure
#Hx of Afib, paroxysmal, not on AC
Moderate to severe
#RLS
#Pulmonary HTN
#Hx of throat CA
#Glaucoma
cont home meds
COnt to follow with established ENT as scheduled before
DVT ppx lovenox
Full code
General: Comfortable
HEENT: Normocephalic
Respiratory: Clear to Auscultation
Cardiac: Regular Rhythm
GI: Soft, Nontender and Nondistended
Musculoskeletal:No Edema
Neuro: Awake, Alert, Oriented and AO x 3
Psych: Calm
Anticipated Discharge: Today
Subjective/Interval History
-
Date of Service: August 10, 2025
denies pain
Objective Data
-
Labs:
Laboratory Results
08/10/25
06:08
WBC 6.0
Hgb 14.0
Hct 43.8
Plt Count 97 L D
Sodium 136
Potassium 4.2
Chloride 96 L
Carbon Dioxide 37 H
BUN 17
Creatinine 0.9
Glucose 171 H
Calcium 8.6
Vital Signs:
Vital Signs
Temp Pulse Resp BP Pulse Ox
98.1 F 70 16 99/45 95
08/10/25 11:26 08/10/25 11:26 08/10/25 11:26 08/10/25 11:26 08/10/25 11:26
I&O
08/09/25 08/10/25 08/11/25
06:59 06:59 06:59
Intake Total 480 / 480
Balance 480 / 480
[2025-08-10 12:59] LABS: Glucose - Point of Care 370 mg/dl (70-99)
[2025-08-10] MEDS: NOVOLOG FLEXPEN-LOW RESISTANCE 5 UNITS SC (13:04)
[2025-08-10 16:41] LABS: Glucose - Point of Care 259 mg/dl (70-99)
[2025-08-10] MEDS: GLUCOPHAGE 500 MG PO (16:53)
[2025-08-10] MEDS: NOVOLOG FLEXPEN-LOW RESISTANCE 3 UNITS SC (16:54)
[2025-08-10] MEDS: LOVENOX 40 MG SC (18:01)
[2025-08-10 21:35] LABS: Glucose - Point of Care 237 mg/dl (70-99)
[2025-08-10] MEDS: XALATAN OPHTHALMIC SOLUTION 1 DROP BOTH EYES (22:19)
[2025-08-11 03:03] VITALS: BP 104/72
[2025-08-11] MEDS: SYNTHROID 50 MCG PO (05:32)
[2025-08-11 06:00] VITALS: BMI 21.9
[2025-08-11 07:00] VITALS: BP 114/60
[2025-08-11] MEDS: SPIRIVA RESPIMAT 2.5 MCG 2 PUFF INH (07:34)
[2025-08-11 07:36] LABS: Hematocrit 41.1 % (37.0-47.0); Hemoglobin 13.6 g/dL (12.0-16.0); Mean Corp Hgb Conc. 33.1 g/dL (33.0-37.0); Mean Corpuscular Volume 96.7 fL (81.0-99.0); Nucleated Red Blood Cells % 0 %; Platelet Count 109 10^3/uL (130-400); Red Cell Dist. Width 13.8 % (11.5-14.5)
[2025-08-11 07:42] LABS: Glucose - Point of Care 123 mg/dl (70-99)
[2025-08-11] MEDS: NOVOLOG FLEXPEN-LOW RESISTANCE SC ×2 (07:48→12:33)
[2025-08-11 07:51] LABS: Blood Urea Nitrogen 20 mg/dl (7-17); Calcium 8.5 mg/dl (8.4-10.2); Carbon Dioxide 36 mmol/L (22-30); Chloride 94 mmol/L (98-107); Estimated Creatinine Clearance 49 ml/min; Glucose 148 mg/dl (70-99); Potassium 4.0 mmol/L (3.5-5.1); Sodium 134 mmol/L (135-145); eGFR > 60.00
[2025-08-11] MEDS: ALPHAGAN 0.2% EYE DROPS 1 DROP BOTH EYES (09:23)
[2025-08-11] MEDS: TYLENOL 1000 MG PO (09:24)
[2025-08-11] MEDS: LASIX 40 MG PO (09:25)
[2025-08-11] MEDS: GLUCOPHAGE 500 MG PO (09:25)
[2025-08-11] MEDS: OCUVITE SOFTGEL 1 CAP PO (09:25)
[2025-08-11] MEDS: FEOSOL 325 MG PO (09:28)
[2025-08-11] MEDS: REQUIP 0.25 MG PO (09:28)
[2025-08-11] MEDS: TOPROL XL 50 MG PO (09:28)
[2025-08-11] MEDS: PACERONE 200 MG PO (09:28)
[2025-08-11] MEDS: FARXIGA 10 MG PO (09:28)
[2025-08-11 10:48] VITALS: BP 101/56; PULSE 98; O2SAT 96
[2025-08-11 11:00] VITALS: BP 102/46
--- NOTE | 2025-08-11 11:30 | CM ---
CM following re: discharge planning.
Reviewed pt's chart, met with pt and spoke to pt's daughter Emy over the phone to update on discharge plan progress.
Both pt and her daughter Emy were informed that [facility] accepted the pt for admission today and they expressed their agreement. Pt still OBS status.
CM spoke to [facility] admission/business department loss control representative Carolee [phone] and liaison Lashay [phone] and they confirmed that pt is accepted for admission today and auth requested.
CM iniytiated an auth for SNF level of care at [facility] with OBX, spoke to loss control representative leonie and based on pt's clinical pt is approvded for SNF level of care for 7 initial days starting today 08/11/25 till 08/17/25 with LCD and
NRD 08/17/25. Auth: [id number]. for review: [phone].
Auth information forwarded to [facility] admissions department.
to arrange ambulance transport BLS. PMNC completed and left with . Ambulance auth to Acute care ambulance: [id number]
[facility] nursing rapport: [phone] ask for RN Kristy
Discharge instructions fax: [phone]
D/C plan: [facility]
--- NOTE | 2025-08-11 11:48 | W.PN.HOSP.TC ---
Today's Communication/Plan
-
Monitor vital signs and see plan
Discharge today to SNF
Continue with metformin
Time of discharge 38 minutes
Assessment / Plan
Assessment / Plan
84yo F with PMHX of Afib, not on AC any more as per patient, Sjogrens, psoriasis, MDD, RLS, BRIGETTE, pulmonary HTN, throat CA, chronic hypoxic resiratory failure on home o2 (does not remember flow), DM, glaucoma came from home after the fall w/o LOC due
to severe RLE pain on ambulation, found Mildly displaced R superior pubic ramus, inferor pubic ramus and sacral ala.
Patient did hit the back of her head, but no bruising, headache or neurological deficit nted, no new neck pain and neck ROM preserved normal
A/P:
#Mildly displaced R superior pubic ramus, inferior pubic ramus and sacral ala.
Ortho following
PT/OT
pain mgmt
outpatient orthopedic follow-up in 4 weeks from the date of injury for repeat x-rays and clinical exam, sooner if her symptoms worsen
weightbearing as tolerated with assist devices
#DM type 2 with unspecified complications
#Hyperglycemia on admission
Start metformin
Accuchecks, Insulin SS, DM diet
#Chronic transaminitis
#Chronic alk. phos elevation
No RUQ pain
Thrombocytopenia
Monitor
Hypothyroidism
TSH elevated, increase Synthroid. Repeat TSH with free T4 outpatient
#COPD with chronic hypoxic respiratory failure
#Hx of Afib, paroxysmal, not on AC
Moderate to severe
#RLS
#Pulmonary HTN
#Hx of throat CA
#Glaucoma
cont home meds
COnt to follow with established ENT as scheduled before
DVT ppx lovenox
Full code
General: Comfortable
HEENT: Normocephalic
Respiratory: Clear to Auscultation
Cardiac: Regular Rhythm
GI: Soft, Nontender and Nondistended
Musculoskeletal:No Edema
Neuro: Awake, Alert, Oriented and AO x 3
Psych: Calm
Anticipated Discharge: Today
Subjective/Interval History
-
Date of Service: August 11, 2025
Denies nausea
Objective Data
-
Labs:
Laboratory Results
08/11/25
06:59
WBC 6.4
Hgb 13.6
Hct 41.1
Plt Count 109 L
Sodium 134 L
Potassium 4.0
Chloride 94 L
Carbon Dioxide 36 H
BUN 20 H
Creatinine 0.9
Glucose 148 H
Calcium 8.5
Vital Signs:
Vital Signs
Temp Pulse Resp BP Pulse Ox
98.9 F 98 16 102/46 94
08/11/25 11:00 08/11/25 11:00 08/11/25 11:00 08/11/25 11:00 08/11/25 11:00
I&O
08/10/25 08/11/25 08/12/25
06:59 06:59 06:59
Intake Total 480 / 480 840 / 840
Balance 480 / 480 840 / 840
[2025-08-11 11:52] LABS: Glucose - Point of Care 284 mg/dl (70-99)
--- NOTE | 2025-08-11 11:55 | W.DCSUMMARY ---
Discharge Summary
Discharge Data
Date of Admission: 08/09/25
Date of Discharge: 08/11/25
-
Pending Results: No
Hospital Course
84-year-old female with past medical history of A-fib, Sjogren's, psoriasis, restless leg syndrome, iron deficiency anemia, pulmonary hypertension, throat cancer, chronic hypoxic respiratory failure on home O2, diabetes mellitus, glaucoma came to
the hospital after a fall with mildly displaced right superior pubic ramus and inferior pubic ramus and sacral fracture. Patient was seen by orthopedics and was recommended nonoperative management and to follow-up with them closely outpatient for
repeat imaging. Patient was seen by physical therapy who recommended SNF. Her diabetes was also uncontrolled so she was started on metformin. Her TSH was also elevated so her Synthroid was increased. Once her symptoms continue to improve, she
was then discharged to rehab with instructions to follow-up with all her physicians outpatient.
Discharge Plan
-
Patient Disposition: Senior Living/SNF
Discharge Diagnosis/Procedures: Mildly displaced R superior pubic ramus, inferior pubic ramus and sacral ala
Uncontrolled diabetes mellitus
Hypothyroidism
Condition: Fair
Diet: As tolerated and Diabetic, Carb Controlled
Activity: As tolerated and With Walker
Driving Restrictions: Not until seen by your Dr
Bathing Restrictions: OK to Shower
Blood Work: Repeat TSH with free T4 outpatient in 4 weeks with pcp
Referrals:
Maurizio Jenkins MD [Active, Orthopedics]
Referral Note: 4 weeks from date of injury with xrays to be done in the office
Lindy Olivas MD [Family Provider, Family Practice] - in less than 1 week
Prescriptions:
New
metformin 500 mg Tablet
500 mg PO BID@0800,1700 Qty: 0 0RF
polyethylene glycol 3350 17 gram Powder In Packet
17 g PO DAILY PRN (Reason: Constipation) Qty: 0 0RF
acetaminophen [Tylenol Extra Strength] 500 mg Tablet
1,000 mg PO TID Qty: 1 0RF
Continued
latanoprost 1 DROP drops
1 drp BOTH EYES HS
albuterol sulfate 1 PUFF HFA aerosol inhaler
2 puff inhalation R Q4HPRN PRN (Reason: sob)
brimonidine [Alphagan P] 1 DROP drops
1 drp BOTH EYES BID
tiotropium bromide [Spiriva with HandiHaler] 18 MCG capsule, w/inhalation device
18 mcg inhalation R DAILY
guaifenesin [Mucus Relief ER] 600 MG tablet extended release 12hr
1,200 mg PO PRN PRN (Reason: ALLERGIES)
ropinirole 0.25 MG tablet
0.25 mg PO TID Qty: 90 0RF
azelastine 137 mcg (0.1 %) [place],Non-Aerosol
1 spray INTRANASAL BID
PreserVision AREDS 4,296 mcg-226 mg-90 mg Capsule
1 cap PO BID
ferrous sulfate 27 mg iron Tablet
27 mg PO DAILY
amiodarone 200 mg Tablet
200 mg PO BID Qty: 0 0RF
Rx Instructions:
for 14 days then decrease to 200mg daily
furosemide 40 mg Tablet
40 mg PO BID AT 0800,1600 Qty: 0 0RF
metoprolol succinate 50 mg Tablet Extended Release 24 Hr
50 mg PO BID Qty: 0 0RF
Jardiance 10 mg Tablet
10 mg PO DAILY Qty: 0 0RF
Changed
levothyroxine 25 mcg Tablet
50 mcg PO DAILY @ 0600 Qty: 0 0RF
Discharge Orders:
Discharge Patient (As Directed); Ordered 08/11/25
Ordered By: Keith Couch
Discharge Date and Time
Discharge Date/Time: 08/11/25 13:50
Print Language: GUATEMALAN
[2025-08-11] MEDS: FLUZONE HIGH-DOSE 2025-26 0.5 ML IM (12:34)
== END 2025-08-11 13:50 ==
LOC: 2 SOUTH 04:26
PROVIDERS: Emergency Medicine; Internal Medicine; Nurse Practitioner; ADMITTING PHYSICIAN Hospitalist; ATTENDING PHYSICIAN Internal Medicine; CONSULT PHYSICIAN Orthopaedic Surgery; CONSULT PHYSICIAN Psychiatry & Neurology Psychiatry; EMERGENCY PHYSICIAN Student in an Organized Health Care Education/Training Program; FAMILY PHYSICIAN Family Medicine
DX: S32.110A Nondisplaced Zone I fracture of sacrum, initial encounter for closed fracture (principal); R74.01 Elevation of levels of liver transaminase levels; R26.2 Difficulty in walking, not elsewhere classified; W01.0XXA Fall on same level from slipping, tripping and stumbling without subsequent striking against object, initial encounter; D69.6 Thrombocytopenia, unspecified; E03.9 Hypothyroidism, unspecified; E11.22 Type 2 diabetes mellitus with diabetic chronic kidney disease; N18.2 Chronic kidney disease, stage 2 (mild); I48.0 Paroxysmal atrial fibrillation; J44.9 Chronic obstructive pulmonary disease, unspecified; I13.0 Hypertensive heart and chronic kidney disease with heart failure and stage 1 through stage 4 chronic kidney disease, or unspecified chronic kidney disease; M35.00 Sjogren syndrome, unspecified; Z87.891 Personal history of nicotine dependence; Z92.3 Personal history of irradiation; E11.65 Type 2 diabetes mellitus with hyperglycemia; E78.00 Pure hypercholesterolemia, unspecified; G25.81 Restless legs syndrome; H40.9 Unspecified glaucoma; I50.32 Chronic diastolic (congestive) heart failure; J84.9 Interstitial pulmonary disease, unspecified; J96.11 Chronic respiratory failure with hypoxia; R82.71 Bacteriuria; I27.20 Pulmonary hypertension, unspecified; Z79.01 Long term (current) use of anticoagulants; Z79.84 Long term (current) use of oral hypoglycemic drugs; Z91.119 Patient's noncompliance with dietary regimen due to unspecified reason
CPT/HCPCS: 72192; 73502; 80048; 80053; 81003; 81015; 82010; 82550; 82947; 82962; 82977; 83036; 83735; 84439; 84443; 85025; 85027; 86803; 86850; 86900; 86901; 87086; 90662; 94640; 96372; 96374; 96375; 97116; 97162; 97166; 97530; 97535; 99285; G0008; G0378

== ENCOUNTER → 2025-10-22 10:54 | Outpatient (REF) | payer OTHER, SELFPAY | LOC: RAD 10:54 | PROVIDERS: ATTENDING PHYSICIAN Physician Assistant; FAMILY PHYSICIAN Family Medicine | DX: S32.89XD Fracture of other parts of pelvis, subsequent encounter for fracture with routine healing (principal) | CPT/HCPCS: 72190 ==